=== PATIENT | female | born 1955 | race Asian ===

== ENCOUNTER 2016-10-05 08:45 | Day surgery (SDC) | payer MEDICAID ==
[~2016-10-05] VITALS: Ht 152.4 cm; Wt 64.1 kg
[~2016-10-05 08:45] MED LIST: ASPI-556 PO; ATEN25 PO; BENZ1TAB10 PO; FentaNYL CITRATE-PF 100 MCG/2 ML VIAL IVP ONE; INSLAN SQ; METF500T4 PO; MIDAZOLAM HCL 2 MG/2 ML VIAL IVP ONE; PROP10 PO; QUET100T PO; RISP3 PO; SIMV-259 PO
[2016-10-05] MEDS ORDERED: RINGERS SOLUTION,LACTATED 500 ML IV ONE ×2 (08:52→09:00)
[2016-10-05] MEDS ORDERED: TETRACAINE HCL 0.5% 2 ML OPHTHALMIC SOLUTION ONE (08:53)
[2016-10-05] MEDS ORDERED: CYCLOPENTOLATE HCL 2% 2 ML OPHTHALMIC SOLUTION ONE (08:53)
[2016-10-05] MEDS ORDERED: DICLOFENAC SODIUM 0.1% 2.5 ML OPHTHALMIC SOLUTION ONE (08:53)
[2016-10-05] MEDS ORDERED: PHENYLEPHRINE HCL 2.5% 2 ML OPHTHALMIC SOLUTION ONE (08:53)
[2016-10-05] MEDS ORDERED: GATIFLOXACIN 0.5% 2.5 ML OPHTHALMIC SOLUTION ONE (08:53)
[2016-10-05] MEDS ORDERED: TETRACAINE HCL 0.5% 2 ML OPHTHALMIC SOLUTION OS ONE ×2 (09:00→18:08)
[2016-10-05 09:32] LABS: GLUCOSE COMMENT 1 Doctor Notified; GLUCOSE,POINT OF CARE 300 MG/DL (70-110)
[2016-10-05] MEDS: PHENYLEPHRINE HCL 2.5% 2 ML OPHTHALMIC SOLUTION OS SCH ×3 (09:32→09:43)
[2016-10-05] MEDS: CYCLOPENTOLATE HCL 2% 2 ML OPHTHALMIC SOLUTION OS SCH ×3 (09:32→09:43)
[2016-10-05] MEDS: DICLOFENAC SODIUM 0.1% 2.5 ML OPHTHALMIC SOLUTION OS SCH ×3 (09:33→09:53)
[2016-10-05] MEDS: GATIFLOXACIN 0.5% 2.5 ML OPHTHALMIC SOLUTION OS SCH ×3 (09:35→09:53)
[2016-10-05] MEDS ORDERED: INSULIN ASPART 100 UNITS/ML ONE (09:43)
[2016-10-05] MEDS ORDERED: INSULIN ASPART 100 UNITS/ML IVP ONE (09:45)
[2016-10-05] MEDS ORDERED: ACETAMINOPHEN 325 MG TABLET PO PRN (10:00)
[2016-10-05] MEDS ORDERED: AcetaZOLAMIDE 250 MG TABLET PO ONE (10:00)
[2016-10-05 10:27] LABS: GLUCOSE COMMENT 1 Doctor Notified; GLUCOSE,POINT OF CARE 217 MG/DL (70-110)
[2016-10-05] MEDS ORDERED: AcetaZOLAMIDE 250 MG TABLET ONE (11:39)
[2016-10-05] MEDS ORDERED: BRIMONIDINE TARTRATE 0.15% 5 ML OPHTHALMIC SOLUTION OS ONE (18:08)
[2016-10-05] MEDS ORDERED: POVIDONE-IODINE 10% 15 ML SOLUTION UD TP ONE (18:08)
[2016-10-05] MEDS ORDERED: MOXIFLOXACIN HCL 0.5% 3 ML OPHTHALMIC SOLUTION OS ONE (18:08)
[2016-10-05] MEDS ORDERED: TETRACAINE HCL VISCOUS 0.5% 0.6 ML OPHTHALMIC SOLUTION OS ONE (18:08)
[2016-10-05] MEDS ORDERED: HYALURONATE SODIUM 12 MG/ML 0.8 ML SYRINGE IO ONE (18:08)
[2016-10-05] MEDS ORDERED: EPINEPHrine 1:1,000 [1 MG/ML] AMP IM ONE (18:08)
[2016-10-05] MEDS ORDERED: LIDOCAINE HCL/PF 1% 2 ML VIAL IM ONE (18:08)
[2016-10-05] MEDS ORDERED: HYALURONATE SOD/CHONDROITIN SOD 0.5 ML VIAL IO ONE (18:08)
== END 2016-10-05 12:15 | disposition home or self-care (01) ==
LOC: SURGERY 08:45
PROVIDERS: ATTEND Ophthalmology
DX: E11.36 Type 2 diabetes mellitus with diabetic cataract (principal); E11.39 Type 2 diabetes mellitus with other diabetic ophthalmic complication; H21.502 Unspecified adhesions of iris, left eye; F32.9 Major depressive disorder, single episode, unspecified; Z79.4 Long term (current) use of insulin
CPT/HCPCS: 66982; 66999; 82962; 93005; C1780; J0171; J1815; J2250; J3010; J3490 ×2; J7120

== ENCOUNTER 2017-03-11 15:11 | Inpatient (IN) | payer MEDICAID ==
[~2017-03-11] VITALS: Ht 154.9 cm; Wt 57.9 kg
[~2017-03-11 15:11] MED LIST changes: -ATEN25 PO; +ATEN25TA PO; -FentaNYL CITRATE-PF 100 MCG/2 ML VIAL IVP ONE; -MIDAZOLAM HCL 2 MG/2 ML VIAL IVP ONE; -PROP10 PO; +PROP10TA73 PO
[2017-03-11 15:42] LABS: GLUCOSE,POINT OF CARE 387 MG/DL (70-110)
[2017-03-11 16:31] LABS: BASOPHILS % (AUTO) 0.3 % (0.0-2.0); EOSINOPHILS % (AUTO) 1.3 % (1.0-6.0); HEMATOCRIT 38.1 % (36-46); HEMOGLOBIN 13.3 g/dL (12.0-16.0); LYMPHOCYTES # (AUTO) 1.2 K/uL (1.0-4.8); LYMPHOCYTES % (AUTO) 21.3 % (22.0-44.0); MEAN CORPUSCULAR HEMOGLOBIN 32.2 pg (26.0-34.0); MEAN CORPUSCULAR HGB CONC 34.8 G/dL (31.0-37.0); MEAN CORPUSCULAR VOLUME 92 fL (80-100); MONOCYTES # (AUTO) 0.4 K/uL (0.1-1.0); NEUTROPHILS % (AUTO) 70.1 % (40.0-70.0); PLATELET COUNT (AUTO) 306 K/uL (150-450); RED BLOOD CELL COUNT(AUTO) 4.12 MIL/uL (4.00-5.20); RED CELL DISTRIBUTION WIDTH 12.5 % (11.5-14.5); WHITE BLOOD COUNT (AUTO) 5.7 K/uL (4.5-11.0)
[2017-03-11 16:37] LABS: ANION GAP 15 mmol/L (8-16); CALCIUM, TOTAL 9.4 mg/dL (8.8-10.5); CARBON DIOXIDE 21 mmol/L (22-29); CHLORIDE 99 mmol/L (98-107); CREATININE 0.99 mg/dL (0.60-1.30); GLOMERULAR FILTR. RATE CALC 57 mL/min (>60); POTASSIUM 3.9 mmol/L (3.5-5.1); SODIUM SERUM 135 mmol/L (136-145); UREA NITROGEN, BLOOD 26 mg/dL (7-18)
[2017-03-11 16:44] LABS: ALANINE AMINOTRANSFERASE 24 U/L (12-78); ALBUMIN 3.7 g/dL (3.4-5.0); ASPARTATE AMINOTRANSFERASE 17 U/L (15-37); BILIRUBIN,TOTAL 0.4 mg/dL (0.1-1.0); TOTAL PROTEIN, SERUM 7.5 g/dL (6.4-8.2)
[2017-03-11] MEDS ORDERED: LORazepam 2 MG/ML VIAL IM ONE (19:45)
[2017-03-11] MEDS ORDERED: DiphenhydrAMINE HCL 50 MG/ML VIAL IM ONE (19:45)
[2017-03-11] MEDS ORDERED: HALOPERIDOL LACTATE 5 MG/ML VIAL IM ONE (19:45)
[2017-03-11] MEDS ORDERED: ZOLPIDEM TARTRATE 10 MG TABLET PO PRN (20:15)
[2017-03-11] MEDS ORDERED: HALOPERIDOL 5 MG TABLET PO PRN (20:15)
[2017-03-11 21:06] VITALS: BP 129/61
[2017-03-11] MEDS: BENZTROPINE MESYLATE 1 MG TABLET PO SCH (21:15)
[2017-03-11] MEDS: QUEtiapine FUMARATE 100 MG TABLET PO SCH (21:15)
[2017-03-12 00:56] VITALS: BP 119/64
[2017-03-12] MEDS ORDERED: PNEUMOCOCCAL VACCINE POLYVALENT 0.5 ML VIAL [PPSV23] IM ONE (03:45)
[2017-03-12 06:03] LABS: GLUCOSE COMMENT 1 Repeated; GLUCOSE,POINT OF CARE 490 MG/DL (70-110)
[2017-03-12] MEDS ORDERED: INSULIN ASPART 100 UNITS/ML SQ ONE (07:15)
[2017-03-12] MEDS ORDERED: GLUCAGON,HUMAN RECOMBINANT 1 MG VIAL IM PRN (07:15)
[2017-03-12] MEDS: QUEtiapine FUMARATE 100 MG TABLET PO SCH ×3 (09:08→17:10)
[2017-03-12] MEDS: BENZTROPINE MESYLATE 1 MG TABLET PO SCH ×2 (09:08→17:10)
[2017-03-12 09:12] LABS: GLUCOSE COMMENT 1 Received Meds; GLUCOSE,POINT OF CARE 240 MG/DL (70-110)
[2017-03-12] MEDS: INSULIN DETEMIR 100 UNITS/ML SQ SCH ×2 (09:12→17:00)
[2017-03-12] MEDS ORDERED: IBUPROFEN 400 MG TABLET PO PRN (16:00)
[2017-03-12] MEDS ORDERED: ACETAMINOPHEN 325 MG TABLET PO PRN (16:00)
[2017-03-12 16:45] VITALS: BP 104/72
[2017-03-12 16:52] LABS: GLUCOSE,POINT OF CARE 336 MG/DL (70-110)
[2017-03-12] MEDS ORDERED: MetFORMIN HCL 500 MG TABLET PO SCH (17:00)
[2017-03-12 21:47] LABS: GLUCOSE,POINT OF CARE 313 MG/DL (70-110)
[2017-03-13] MEDS: MetFORMIN HCL 500 MG TABLET PO SCH ×2 (06:04→20:37)
[2017-03-13] MEDS ORDERED: MetFORMIN HCL 500 MG TABLET PO SCH (07:00)
[2017-03-13] MEDS: QUEtiapine FUMARATE 100 MG TABLET PO SCH ×3 (09:38→16:44)
[2017-03-13] MEDS: BENZTROPINE MESYLATE 1 MG TABLET PO SCH ×2 (09:39→16:45)
[2017-03-13] MEDS: SIMVASTATIN 10 MG TABLET PO SCH (09:39)
[2017-03-13] MEDS: ASPIRIN 81 MG EC TABLET PO SCH (09:39)
[2017-03-13 09:45] VITALS: BP 103/60
[2017-03-13] MEDS: INSULIN DETEMIR 100 UNITS/ML SQ SCH ×2 (09:51→16:46)
[2017-03-13 10:12] LABS: GLUCOSE,POINT OF CARE 369 MG/DL (70-110)
[2017-03-13] MEDS: INSULIN ASPART 100 UNITS/ML SQ PRN (11:13)
[2017-03-13 11:16] LABS: GLUCOSE,POINT OF CARE 359 MG/DL (70-110)
[2017-03-13] MEDS: ATENOLOL 25 MG TABLET PO SCH (12:12)
[2017-03-13 16:12] VITALS: BP 113/67
[2017-03-13 17:02] LABS: GLUCOSE,POINT OF CARE 104 MG/DL (70-110)
[2017-03-13 20:57] LABS: GLUCOSE COMMENT 1 Received Meds; GLUCOSE,POINT OF CARE 247 MG/DL (70-110)
[2017-03-14] MEDS: MetFORMIN HCL 500 MG TABLET PO SCH ×2 (06:56→20:30)
[2017-03-14] MEDS: ASPIRIN 81 MG EC TABLET PO SCH (09:09)
[2017-03-14] MEDS: QUEtiapine FUMARATE 100 MG TABLET PO SCH ×3 (09:09→17:00)
[2017-03-14] MEDS: ATENOLOL 25 MG TABLET PO SCH (09:09)
[2017-03-14] MEDS: SIMVASTATIN 10 MG TABLET PO SCH (09:09)
[2017-03-14] MEDS: RisperiDONE MICROSPHERES 50 MG/2 ML SYRINGE IM SCH (09:15)
[2017-03-14 09:33] LABS: GLUCOSE,POINT OF CARE 284 MG/DL (70-110)
[2017-03-14] MEDS: INSULIN DETEMIR 100 UNITS/ML SQ SCH ×2 (10:07→17:00)
[2017-03-14 16:16] VITALS: BP 109/68
[2017-03-14 17:01] LABS: GLUCOSE,POINT OF CARE 303 MG/DL (70-110)
[2017-03-15 04:36] VITALS: BP 148/86
[2017-03-15 06:27] LABS: GLUCOSE,POINT OF CARE 317 MG/DL (70-110)
[2017-03-15] MEDS: MetFORMIN HCL 500 MG TABLET PO SCH ×2 (06:56→20:40)
[2017-03-15] MEDS: INSULIN ASPART 100 UNITS/ML SQ PRN ×2 (06:58→11:14)
[2017-03-15] MEDS: ASPIRIN 81 MG EC TABLET PO SCH (09:14)
[2017-03-15] MEDS: ATENOLOL 25 MG TABLET PO SCH (09:14)
[2017-03-15] MEDS: SIMVASTATIN 10 MG TABLET PO SCH (09:14)
[2017-03-15] MEDS: QUEtiapine FUMARATE 100 MG TABLET PO SCH ×3 (09:14→16:56)
[2017-03-15] MEDS: INSULIN DETEMIR 100 UNITS/ML SQ SCH ×2 (09:29→16:56)
[2017-03-15 15:36] LABS: GLUCOSE,POINT OF CARE 240 MG/DL (70-110)
[2017-03-15 17:00] VITALS: BP 120/81
[2017-03-16 06:35] VITALS: BP 110/63
[2017-03-16 06:37] LABS: GLUCOSE,POINT OF CARE 252 MG/DL (70-110)
[2017-03-16] MEDS: MetFORMIN HCL 500 MG TABLET PO SCH ×2 (06:50→20:26)
[2017-03-16 08:46] LABS: HEMOGLOBIN A1C 10.1 % (4.5-6.2)
[2017-03-16 09:02] LABS: CHOL/HDL RATIO 4.3 (3.9-5.7)
[2017-03-16] MEDS: ATENOLOL 25 MG TABLET PO SCH (09:35)
[2017-03-16] MEDS: QUEtiapine FUMARATE 100 MG TABLET PO SCH ×3 (09:35→16:56)
[2017-03-16] MEDS: ASPIRIN 81 MG EC TABLET PO SCH (09:35)
[2017-03-16] MEDS: SIMVASTATIN 10 MG TABLET PO SCH (09:36)
[2017-03-16] MEDS: INSULIN DETEMIR 100 UNITS/ML SQ SCH ×2 (09:59→17:00)
[2017-03-16 10:03] LABS: GLUCOSE,POINT OF CARE 307 MG/DL (70-110)
[2017-03-16 16:27] VITALS: BP 107/65
[2017-03-17 06:23] LABS: GLUCOSE,POINT OF CARE 278 MG/DL (70-110)
[2017-03-17] MEDS: MetFORMIN HCL 500 MG TABLET PO SCH ×2 (06:50→20:36)
[2017-03-17 08:25] VITALS: BP 124/75
[2017-03-17] MEDS: LORazepam 2 MG TABLET PO PRN (08:47)
[2017-03-17] MEDS: ASPIRIN 81 MG EC TABLET PO SCH (08:48)
[2017-03-17] MEDS: SIMVASTATIN 10 MG TABLET PO SCH (08:48)
[2017-03-17] MEDS: ATENOLOL 25 MG TABLET PO SCH (08:48)
[2017-03-17] MEDS: QUEtiapine FUMARATE 100 MG TABLET PO SCH ×3 (08:48→16:45)
[2017-03-17] MEDS: INSULIN DETEMIR 100 UNITS/ML SQ SCH ×2 (08:58→17:17)
[2017-03-17 09:08] LABS: GLUCOSE,POINT OF CARE 366 MG/DL (70-110)
[2017-03-17] MEDS: INSULIN ASPART 100 UNITS/ML SQ PRN ×3 (11:26→20:52)
[2017-03-17 11:32] LABS: GLUCOSE,POINT OF CARE 308 MG/DL (70-110)
[2017-03-17 16:25] VITALS: BP 117/79
[2017-03-17 16:57] LABS: GLUCOSE,POINT OF CARE 122 MG/DL (70-110)
[2017-03-17 21:22] LABS: GLUCOSE,POINT OF CARE 208 MG/DL (70-110)
[2017-03-18] MEDS: MetFORMIN HCL 500 MG TABLET PO SCH ×2 (06:35→20:25)
[2017-03-18] MEDS: ASPIRIN 81 MG EC TABLET PO SCH (09:00)
[2017-03-18] MEDS: SIMVASTATIN 10 MG TABLET PO SCH (09:00)
[2017-03-18] MEDS: QUEtiapine FUMARATE 100 MG TABLET PO SCH ×3 (09:00→17:33)
[2017-03-18] MEDS: INSULIN DETEMIR 100 UNITS/ML SQ SCH ×2 (09:00→17:00)
[2017-03-18] MEDS: ATENOLOL 25 MG TABLET PO SCH (09:00)
[2017-03-18 11:48] LABS: GLUCOSE,POINT OF CARE 209 MG/DL (70-110)
[2017-03-18 16:30] VITALS: BP 123/73
[2017-03-19] MEDS: MetFORMIN HCL 500 MG TABLET PO SCH ×2 (07:17→20:28)
[2017-03-19] MEDS: ASPIRIN 81 MG EC TABLET PO SCH (08:58)
[2017-03-19] MEDS: ATENOLOL 25 MG TABLET PO SCH (08:58)
[2017-03-19] MEDS: SIMVASTATIN 10 MG TABLET PO SCH (08:59)
[2017-03-19] MEDS: QUEtiapine FUMARATE 100 MG TABLET PO SCH ×4 (09:01→16:44)
[2017-03-19 09:08] VITALS: BP 107/71
[2017-03-19] MEDS: INSULIN DETEMIR 100 UNITS/ML SQ SCH ×2 (09:19→16:51)
[2017-03-19 10:35] LABS: GLUCOSE COMMENT 1 Received Meds; GLUCOSE,POINT OF CARE 354 MG/DL (70-110)
[2017-03-19 16:38] VITALS: BP 133/89
[2017-03-19] MEDS: LORazepam 2 MG TABLET PO PRN ×2 (16:44→20:29)
[2017-03-19 16:47] LABS: GLUCOSE COMMENT 1 Received Meds; GLUCOSE,POINT OF CARE 305 MG/DL (70-110)
[2017-03-19] MEDS: INSULIN ASPART 100 UNITS/ML SQ PRN (16:51)
[2017-03-19] MEDS ORDERED: RISPC50 IM (21:18)
[2017-03-20 05:03] LABS: GLUCOSE COMMENT 1 Received Meds; GLUCOSE,POINT OF CARE 129 MG/DL (70-110)
[2017-03-20 06:04] VITALS: BP 133/81
[2017-03-20] MEDS: MetFORMIN HCL 500 MG TABLET PO SCH ×2 (07:21→20:42)
[2017-03-20] MEDS: ATENOLOL 25 MG TABLET PO SCH (09:22)
[2017-03-20] MEDS: QUEtiapine FUMARATE 100 MG TABLET PO SCH ×3 (09:22→16:24)
[2017-03-20] MEDS: ASPIRIN 81 MG EC TABLET PO SCH (09:22)
[2017-03-20] MEDS: SIMVASTATIN 10 MG TABLET PO SCH (09:23)
[2017-03-20] MEDS: INSULIN DETEMIR 100 UNITS/ML SQ SCH ×2 (09:27→16:36)
[2017-03-20 09:48] VITALS: BP 130/79
[2017-03-20] MEDS: INSULIN ASPART 100 UNITS/ML SQ PRN (11:39)
[2017-03-20 16:29] VITALS: BP 122/65
[2017-03-21 05:42] LABS: GLUCOSE COMMENT 1 Received Meds; GLUCOSE,POINT OF CARE 236 MG/DL (70-110)
[2017-03-21 05:42] LABS: GLUCOSE,POINT OF CARE 193 MG/DL (70-110)
[2017-03-21 05:42] LABS: GLUCOSE,POINT OF CARE 177 MG/DL (70-110)
[2017-03-21 05:42] LABS: GLUCOSE,POINT OF CARE 225 MG/DL (70-110)
[2017-03-21] MEDS: MetFORMIN HCL 500 MG TABLET PO SCH ×2 (06:16→21:00)
[2017-03-21] MEDS: QUEtiapine FUMARATE 100 MG TABLET PO SCH ×3 (08:58→16:33)
[2017-03-21] MEDS: SIMVASTATIN 10 MG TABLET PO SCH (08:58)
[2017-03-21] MEDS: ASPIRIN 81 MG EC TABLET PO SCH (08:58)
[2017-03-21] MEDS: ATENOLOL 25 MG TABLET PO SCH (08:58)
[2017-03-21] MEDS: LORazepam 2 MG TABLET PO PRN (10:06)
[2017-03-21 10:52] LABS: GLUCOSE,POINT OF CARE 299 MG/DL (70-110)
[2017-03-21] MEDS: INSULIN DETEMIR 100 UNITS/ML SQ SCH ×2 (11:44→16:50)
[2017-03-21] MEDS: INSULIN ASPART 100 UNITS/ML SQ PRN ×3 (11:45→20:27)
[2017-03-21 16:39] VITALS: BP 104/71
[2017-03-21 17:02] LABS: GLUCOSE,POINT OF CARE 269 MG/DL (70-110)
[2017-03-21 20:57] LABS: GLUCOSE,POINT OF CARE 139 MG/DL (70-110)
[2017-03-22 04:26] VITALS: BP 124/78
[2017-03-22] MEDS: MetFORMIN HCL 500 MG TABLET PO SCH ×2 (07:13→21:00)
[2017-03-22 07:22] LABS: GLUCOSE,POINT OF CARE 305 MG/DL (70-110)
[2017-03-22 08:29] VITALS: BP 132/78
[2017-03-22] MEDS: ATENOLOL 25 MG TABLET PO SCH ×2 (08:38→09:00)
[2017-03-22] MEDS: SIMVASTATIN 10 MG TABLET PO SCH ×2 (08:38→09:00)
[2017-03-22] MEDS: QUEtiapine FUMARATE 100 MG TABLET PO SCH ×5 (08:38→16:59)
[2017-03-22] MEDS: ASPIRIN 81 MG EC TABLET PO SCH ×2 (08:38→09:00)
[2017-03-22] MEDS: INSULIN DETEMIR 100 UNITS/ML SQ SCH ×2 (08:48→17:31)
[2017-03-22] MEDS: INSULIN ASPART 100 UNITS/ML SQ PRN ×2 (11:55→17:30)
[2017-03-22 12:22] LABS: GLUCOSE COMMENT 1 Received Meds; GLUCOSE,POINT OF CARE 232 MG/DL (70-110)
[2017-03-22 16:37] LABS: GLUCOSE,POINT OF CARE 155 MG/DL (70-110)
[2017-03-22 16:47] VITALS: BP 134/83
[2017-03-22 21:36] LABS: GLUCOSE,POINT OF CARE 138 MG/DL (70-110)
[2017-03-23 06:52] LABS: GLUCOSE,POINT OF CARE 214 MG/DL (70-110)
[2017-03-23] MEDS: INSULIN ASPART 100 UNITS/ML SQ PRN ×2 (06:55→17:14)
[2017-03-23] MEDS: MetFORMIN HCL 500 MG TABLET PO SCH ×2 (07:04→20:57)
[2017-03-23 08:39] VITALS: BP 108/69
[2017-03-23] MEDS: QUEtiapine FUMARATE 100 MG TABLET PO SCH ×3 (09:00→16:47)
[2017-03-23] MEDS: SIMVASTATIN 10 MG TABLET PO SCH (09:00)
[2017-03-23] MEDS: INSULIN DETEMIR 100 UNITS/ML SQ SCH ×2 (09:00→17:11)
[2017-03-23] MEDS: ATENOLOL 25 MG TABLET PO SCH (09:00)
[2017-03-23 09:52] LABS: GLUCOSE,POINT OF CARE 186 MG/DL (70-110)
[2017-03-23] MEDS: ASPIRIN 81 MG EC TABLET PO SCH (10:16)
[2017-03-23 16:44] VITALS: BP 133/67
[2017-03-23 21:42] LABS: GLUCOSE,POINT OF CARE 318 MG/DL (70-110)
[2017-03-23 21:42] LABS: GLUCOSE COMMENT 1 Received Meds; GLUCOSE,POINT OF CARE 188 MG/DL (70-110)
[2017-03-24 06:08] LABS: GLUCOSE,POINT OF CARE 286 MG/DL (70-110)
[2017-03-24 06:15] VITALS: BP 140/69
[2017-03-24] MEDS: MetFORMIN HCL 500 MG TABLET PO SCH ×2 (06:43→20:28)
[2017-03-24] MEDS: INSULIN ASPART 100 UNITS/ML SQ PRN ×3 (06:56→17:30)
[2017-03-24 07:35] VITALS: BP 124/83
[2017-03-24] MEDS: LORazepam 2 MG TABLET PO PRN (07:49)
[2017-03-24 08:52] VITALS: BP 124/83
[2017-03-24] MEDS ORDERED: RisperiDONE MICROSPHERES 50 MG/2 ML SYRINGE IM SCH (09:00)
[2017-03-24] MEDS: SIMVASTATIN 10 MG TABLET PO SCH (09:00)
[2017-03-24] MEDS: ATENOLOL 25 MG TABLET PO SCH (09:13)
[2017-03-24] MEDS: ASPIRIN 81 MG EC TABLET PO SCH (09:13)
[2017-03-24] MEDS: INSULIN DETEMIR 100 UNITS/ML SQ SCH ×2 (09:18→16:43)
[2017-03-24 11:02] LABS: GLUCOSE COMMENT 1 Received Meds; GLUCOSE,POINT OF CARE 252 MG/DL (70-110)
[2017-03-24] MEDS: QUEtiapine FUMARATE 100 MG TABLET PO SCH ×2 (12:38→16:43)
[2017-03-24 16:38] VITALS: BP 112/70
[2017-03-25 06:02] VITALS: BP 121/76
[2017-03-25] MEDS: INSULIN ASPART 100 UNITS/ML SQ PRN ×2 (06:59→16:52)
[2017-03-25] MEDS: MetFORMIN HCL 500 MG TABLET PO SCH ×2 (07:00→21:00)
[2017-03-25 08:20] VITALS: BP 159/84
[2017-03-25] MEDS: ATENOLOL 25 MG TABLET PO SCH (09:00)
[2017-03-25] MEDS: SIMVASTATIN 10 MG TABLET PO SCH (09:00)
[2017-03-25] MEDS: ASPIRIN 81 MG EC TABLET PO SCH (09:00)
[2017-03-25] MEDS: INSULIN DETEMIR 100 UNITS/ML SQ SCH ×2 (10:13→16:52)
[2017-03-25 10:19] LABS: GLUCOSE,POINT OF CARE 299 MG/DL (70-110)
[2017-03-25 10:19] LABS: GLUCOSE,POINT OF CARE 162 MG/DL (70-110)
[2017-03-25 10:19] LABS: GLUCOSE,POINT OF CARE 285 MG/DL (70-110)
[2017-03-25] MEDS: QUEtiapine FUMARATE 100 MG TABLET PO SCH ×2 (12:27→16:46)
[2017-03-25] MEDS: LORazepam 2 MG TABLET PO PRN (12:27)
[2017-03-25 17:02] LABS: GLUCOSE,POINT OF CARE 214 MG/DL (70-110)
[2017-03-25 22:51] VITALS: BP 106/67
[2017-03-26 06:37] LABS: GLUCOSE,POINT OF CARE 246 MG/DL (70-110)
[2017-03-26] MEDS: INSULIN ASPART 100 UNITS/ML SQ PRN ×4 (06:40→21:38)
[2017-03-26] MEDS: MetFORMIN HCL 500 MG TABLET PO SCH ×2 (06:44→21:00)
[2017-03-26 08:26] VITALS: BP 123/82
[2017-03-26] MEDS: ASPIRIN 81 MG EC TABLET PO SCH (09:00)
[2017-03-26] MEDS: SIMVASTATIN 10 MG TABLET PO SCH (09:00)
[2017-03-26] MEDS: ATENOLOL 25 MG TABLET PO SCH (09:00)
[2017-03-26] MEDS: INSULIN DETEMIR 100 UNITS/ML SQ SCH ×2 (09:43→17:21)
[2017-03-26 11:57] LABS: GLUCOSE,POINT OF CARE 206 MG/DL (70-110)
[2017-03-26] MEDS: QUEtiapine FUMARATE 100 MG TABLET PO SCH ×2 (12:13→16:27)
[2017-03-26 16:20] VITALS: BP 122/88
[2017-03-26 16:38] LABS: GLUCOSE,POINT OF CARE 248 MG/DL (70-110)
[2017-03-26 21:27] LABS: GLUCOSE,POINT OF CARE 129 MG/DL (70-110)
[2017-03-27] MEDS: LORazepam 2 MG TABLET PO PRN (01:00)
[2017-03-27] MEDS: MetFORMIN HCL 500 MG TABLET PO SCH ×2 (05:56→20:54)
[2017-03-27 06:38] LABS: GLUCOSE,POINT OF CARE 227 MG/DL (70-110)
[2017-03-27] MEDS: INSULIN ASPART 100 UNITS/ML SQ PRN ×3 (07:03→17:24)
[2017-03-27] MEDS: INSULIN DETEMIR 100 UNITS/ML SQ SCH ×2 (08:35→17:24)
[2017-03-27] MEDS: SIMVASTATIN 10 MG TABLET PO SCH ×3 (08:36→09:00)
[2017-03-27] MEDS: ASPIRIN 81 MG EC TABLET PO SCH ×3 (08:37→09:00)
[2017-03-27] MEDS: ATENOLOL 25 MG TABLET PO SCH ×3 (08:38→09:00)
[2017-03-27 08:41] VITALS: BP 98/77
[2017-03-27] MEDS: QUEtiapine FUMARATE 100 MG TABLET PO SCH ×2 (12:50→17:08)
[2017-03-27 16:30] VITALS: BP 128/83
[2017-03-27 16:53] LABS: GLUCOSE,POINT OF CARE 246 MG/DL (70-110)
[2017-03-27 16:53] LABS: GLUCOSE,POINT OF CARE 228 MG/DL (70-110)
[2017-03-28] MEDS: MetFORMIN HCL 500 MG TABLET PO SCH (06:40)
[2017-03-28] MEDS: INSULIN DETEMIR 100 UNITS/ML SQ SCH (07:42)
[2017-03-28] MEDS ORDERED: METF500T4 PO ×4 (08:14→08:22)
[2017-03-28] MEDS ORDERED: INSLAN SQ (08:16)
[2017-03-28 08:23] VITALS: BP 127/67
[2017-03-28] MEDS ORDERED: QUET100T PO ×2 (08:27)
[2017-03-28] MEDS: RisperiDONE MICROSPHERES 50 MG/2 ML SYRINGE IM SCH ×2 (09:00→11:49)
[2017-03-28] MEDS: ASPIRIN 81 MG EC TABLET PO SCH (09:00)
[2017-03-28] MEDS: ATENOLOL 25 MG TABLET PO SCH (09:00)
[2017-03-28] MEDS: SIMVASTATIN 10 MG TABLET PO SCH (09:00)
[2017-03-28 09:47] LABS: GLUCOSE,POINT OF CARE 217 MG/DL (70-110)
[2017-03-28] MEDS: QUEtiapine FUMARATE 100 MG TABLET PO SCH (12:50)
== END 2017-03-28 16:00 | disposition home or self-care (01) | DRG 750 ==
LOC: EMS 15:14 → B2S 21:00
PROVIDERS: ADMIT Psychiatry & Neurology Psychiatry; ATTEND Psychiatry & Neurology Psychiatry
DX: F20.0 Paranoid schizophrenia (principal); E11.9 Type 2 diabetes mellitus without complications; I10 Essential (primary) hypertension; E78.5 Hyperlipidemia, unspecified; F94.0 Selective mutism; K59.00 Constipation, unspecified; Z91.14 Patient's other noncompliance with medication regimen; F32.9 Major depressive disorder, single episode, unspecified; Z28.21 Immunization not carried out because of patient refusal
CPT/HCPCS: 82962; 83036; 90471; 96372; 99285; G0480; J1200; J1630; J1815; J2060; J2794

== ENCOUNTER 2017-03-28 17:57 | Emergency (ER) | payer MEDICAID ==
[~2017-03-28] VITALS: Ht 157.5 cm; Wt 57.2 kg
[~2017-03-28 17:57] MED LIST changes: -RISP3 PO; +RISPC50 IM
[2017-03-28 18:13] LABS: GLUCOSE,POINT OF CARE 318 MG/DL (70-110)
[2017-03-28] MEDS ORDERED: HydrOXYzine PAMOATE 50 MG CAPSULE PO ONE (18:30)
[2017-03-28 18:51] LABS: ANION GAP 12 mmol/L (8-16); CALCIUM, TOTAL 9.4 mg/dL (8.8-10.5); CARBON DIOXIDE 24 mmol/L (22-29); CHLORIDE 102 mmol/L (98-107); CREATININE 0.75 mg/dL (0.60-1.30); GLOMERULAR FILTR. RATE CALC > 60 mL/min (>60); POTASSIUM 3.7 mmol/L (3.5-5.1); SODIUM SERUM 138 mmol/L (136-145); UREA NITROGEN, BLOOD 7 mg/dL (7-18)
[2017-03-28 18:57] LABS: ALANINE AMINOTRANSFERASE 48 U/L (12-78); ALBUMIN 3.9 g/dL (3.4-5.0); ASPARTATE AMINOTRANSFERASE 29 U/L (15-37); BILIRUBIN,TOTAL 0.6 mg/dL (0.1-1.0); TOTAL PROTEIN, SERUM 7.3 g/dL (6.4-8.2)
[2017-03-28 19:01] LABS: BASOPHILS % (AUTO) 0.5 % (0.0-2.0); EOSINOPHILS % (AUTO) 1.1 % (1.0-6.0); HEMATOCRIT 40.3 % (36-46); HEMOGLOBIN 13.7 g/dL (12.0-16.0); LYMPHOCYTES # (AUTO) 1.3 K/uL (1.0-4.8); LYMPHOCYTES % (AUTO) 21.8 % (22.0-44.0); MEAN CORPUSCULAR HEMOGLOBIN 31.7 pg (26.0-34.0); MEAN CORPUSCULAR HGB CONC 33.9 G/dL (31.0-37.0); MEAN CORPUSCULAR VOLUME 93 fL (80-100); MONOCYTES # (AUTO) 0.5 K/uL (0.1-1.0); MONOCYTES % (AUTO) 7.4 % (2.0-9.0); NEUTROPHILS # (AUTO) 4.3 K/uL (1.8-7.7); NEUTROPHILS % (AUTO) 69.2 % (40.0-70.0); PLATELET COUNT (AUTO) 257 K/uL (150-450); RED BLOOD CELL COUNT(AUTO) 4.32 MIL/uL (4.00-5.20); RED CELL DISTRIBUTION WIDTH 13.4 % (11.5-14.5); WHITE BLOOD COUNT (AUTO) 6.2 K/uL (4.5-11.0)
[2017-03-28 19:22] LABS: APPEARANCE,URINE CLOUDY (CLEAR); GLUCOSE, URINE (UA) >=1000 mg/dL (NEGATIVE); KETONES,URINE TRACE mg/dL (NEGATIVE); LEUKOCYTE ESTERASE ,URINE LARGE (NEGATIVE); OCCULT BLOOD,URINE TRACE (NEGATIVE); PH,URINE 5.5 (5.0-8.0); PROTEIN,URINE NEGATIVE (NEGATIVE)
[2017-03-28 19:51] LABS: SQUAMOUS EPITHELIAL CELL,UR Few /LPF (None Seen); TRANSITIONAL EPI CELLS,URINE Few /LPF (None Seen)
[2017-03-28 19:53] LABS: RBC,URINE 0-2 /HPF (0-2); WBC,URINE 51-100 /HPF (0-5)
[2017-03-28] MEDS ORDERED: LORazepam 2 MG TABLET PO ONE (20:00)
[2017-03-28 20:28] VITALS: BP 129/82
== END 2017-03-28 20:41 | disposition home or self-care (01) ==
LOC: EMS 17:59
DX: F20.9 Schizophrenia, unspecified (principal); N39.0 Urinary tract infection, site not specified; F41.9 Anxiety disorder, unspecified; I11.9 Hypertensive heart disease without heart failure; F32.9 Major depressive disorder, single episode, unspecified; E78.00 Pure hypercholesterolemia, unspecified; E11.9 Type 2 diabetes mellitus without complications; Z79.4 Long term (current) use of insulin
CPT/HCPCS: 36415; 80053; 80307; 81001; 82962; 85025; 87077; 87086; 87186; 93005; 99285; G0480

== ENCOUNTER 2017-09-15 17:05 | Inpatient (IN) | payer MEDICAID ==
[~2017-09-15 17:05] MED LIST changes: -ATEN25TA PO; +INSU100V SQ; +LISI-660 PO; +METF10002 PO; -METF500T4 PO; -PROP10TA73 PO; -RISPC50 IM; -SIMV-259 PO
[2017-09-15 18:08] LABS: GLUCOMETER DEV NAME(LOC) BV3S 2; GLUCOSE,POINT OF CARE 269 MG/DL (70-110)
[2017-09-15] MEDS ORDERED: PNEUMOCOCCAL VACCINE POLYVALENT 0.5 ML VIAL [PPSV23] IM ONE (18:15)
[2017-09-15 18:30] VITALS: BP 152/70
[2017-09-15] MEDS: HALOPERIDOL 5 MG TABLET PO PRN (20:37)
[2017-09-15] MEDS: LORazepam 2 MG TABLET PO PRN (20:37)
[2017-09-15] MEDS ORDERED: INSULIN GLARGINE,HUM.REC.ANLOG 100 UNITS/ML SQ SCH (21:00)
[2017-09-16 01:36] VITALS: BP 108/71
[2017-09-16] MEDS: MetFORMIN HCL 500 MG TABLET PO SCH ×2 (06:37→16:24)
[2017-09-16 08:47] VITALS: BP 102/59
[2017-09-16] MEDS: BENZTROPINE MESYLATE 1 MG TABLET PO SCH ×2 (09:02→16:24)
[2017-09-16] MEDS: RisperiDONE 3 MG TABLET PO SCH ×2 (09:03→16:24)
[2017-09-16] MEDS: ASPIRIN 81 MG EC TABLET PO SCH (09:03)
[2017-09-16] MEDS: LISINOPRIL 5 MG TABLET PO SCH (09:03)
[2017-09-16 09:30] VITALS: BP 112/74
[2017-09-16] MEDS: LORazepam 2 MG TABLET PO PRN (09:36)
[2017-09-16] MEDS ORDERED: GLUCAGON,HUMAN RECOMBINANT 1 MG VIAL IM PRN (10:15)
[2017-09-16] MEDS ORDERED: INSULIN REGULAR, HUMAN 100 UNITS/ML SQ ONE (10:30)
[2017-09-16] MEDS ORDERED: INSULIN ASPART 100 UNITS/ML - NON-FORMULARY SQ ONE (10:45)
[2017-09-16] MEDS: INSULIN ASPART 100 UNITS/ML - NON-FORMULARY SQ PRN (11:51)
[2017-09-16 12:18] LABS: GLUCOMETER DEV NAME(LOC) BV3S 2; GLUCOSE,POINT OF CARE 335 MG/DL (70-110)
[2017-09-16 12:18] LABS: GLUCOMETER DEV NAME(LOC) BV3S 2; GLUCOSE,POINT OF CARE 421 MG/DL (70-110)
[2017-09-16] MEDS: INSULIN GLARGINE,HUM.REC.ANLOG 100 UNITS/ML SQ SCH (17:04)
[2017-09-16 17:31] VITALS: BP 101/66
[2017-09-16 17:58] LABS: GLUCOMETER DEV NAME(LOC) BV3S 2; GLUCOSE,POINT OF CARE 77 MG/DL (70-110)
[2017-09-16 17:58] LABS: GLUCOMETER DEV NAME(LOC) BV3S 2; GLUCOSE,POINT OF CARE 115 MG/DL (70-110)
[2017-09-16] MEDS ORDERED: IBUPROFEN 400 MG TABLET PO PRN (19:45)
[2017-09-16] MEDS ORDERED: ACETAMINOPHEN 325 MG TABLET PO PRN (19:45)
[2017-09-17 06:27] VITALS: BP 108/71
[2017-09-17] MEDS: MetFORMIN HCL 500 MG TABLET PO SCH ×2 (06:58→16:52)
[2017-09-17] MEDS: INSULIN ASPART 100 UNITS/ML - NON-FORMULARY SQ PRN ×3 (07:06→17:17)
[2017-09-17] MEDS: INSULIN GLARGINE,HUM.REC.ANLOG 100 UNITS/ML SQ SCH ×2 (07:07→17:16)
[2017-09-17 07:22] LABS: GLUCOMETER DEV NAME(LOC) BV3S 2; GLUCOSE,POINT OF CARE 275 MG/DL (70-110)
[2017-09-17] MEDS: BENZTROPINE MESYLATE 1 MG TABLET PO SCH ×2 (08:42→16:52)
[2017-09-17] MEDS: RisperiDONE 3 MG TABLET PO SCH ×2 (08:42→16:52)
[2017-09-17] MEDS: ASPIRIN 81 MG EC TABLET PO SCH (08:42)
[2017-09-17] MEDS: LISINOPRIL 5 MG TABLET PO SCH (08:42)
[2017-09-17 15:12] LABS: GLUCOMETER DEV NAME(LOC) BV3S 2; GLUCOSE,POINT OF CARE 235 MG/DL (70-110)
[2017-09-17 16:32] VITALS: BP 119/64
[2017-09-17 17:58] LABS: GLUCOMETER DEV NAME(LOC) BV3S 2; GLUCOSE,POINT OF CARE 206 MG/DL (70-110)
[2017-09-17 21:02] LABS: GLUCOMETER DEV NAME(LOC) BV3S 2; GLUCOSE,POINT OF CARE 116 MG/DL (70-110)
[2017-09-18 04:27] VITALS: BP 125/75
[2017-09-18] MEDS: MetFORMIN HCL 500 MG TABLET PO SCH ×2 (07:01→16:39)
[2017-09-18] MEDS: INSULIN GLARGINE,HUM.REC.ANLOG 100 UNITS/ML SQ SCH ×2 (07:06→17:16)
[2017-09-18] MEDS: INSULIN ASPART 100 UNITS/ML - NON-FORMULARY SQ PRN ×3 (07:06→17:17)
[2017-09-18 08:13] LABS: BASOPHILS % (AUTO) 0.7 % (0.0-2.0); EOSINOPHILS % (AUTO) 2.2 % (1.0-6.0); HEMATOCRIT 37.4 % (36-46); LYMPHOCYTES # (AUTO) 1.5 K/uL (1.0-4.8); LYMPHOCYTES % (AUTO) 27.3 % (22.0-44.0); MEAN CORPUSCULAR HEMOGLOBIN 31.8 pg (26.0-34.0); MEAN CORPUSCULAR HGB CONC 34.8 G/dL (31.0-37.0); MEAN CORPUSCULAR VOLUME 91 fL (80-100); MONOCYTES # (AUTO) 0.4 K/uL (0.1-1.0); MONOCYTES % (AUTO) 7.4 % (2.0-9.0); NEUTROPHILS # (AUTO) 3.5 K/uL (1.8-7.7); NEUTROPHILS % (AUTO) 62.4 % (40.0-70.0); PLATELET COUNT (AUTO) 269 K/uL (150-450)
[2017-09-18 08:24] VITALS: BP 113/65
[2017-09-18] MEDS: BENZTROPINE MESYLATE 1 MG TABLET PO SCH ×2 (08:33→16:38)
[2017-09-18] MEDS: ASPIRIN 81 MG EC TABLET PO SCH (08:34)
[2017-09-18] MEDS: RisperiDONE 3 MG TABLET PO SCH ×2 (08:34→16:39)
[2017-09-18] MEDS: LISINOPRIL 5 MG TABLET PO SCH (08:34)
[2017-09-18 08:36] LABS: ALANINE AMINOTRANSFERASE 26 U/L (12-78); ALBUMIN 3.3 g/dL (3.4-5.0); ALKALINE PHOSPHATASE 77 U/L (46-116); ANION GAP 11 mmol/L (8-16); ASPARTATE AMINOTRANSFERASE 14 U/L (15-37); BILIRUBIN,TOTAL 0.6 mg/dL (0.1-1.0); CARBON DIOXIDE 26 mmol/L (22-29); CHLORIDE 106 mmol/L (98-107); CHOL/HDL RATIO 4.5 (3.9-5.7); CHOLESTEROL 235 mg/dL (131-200); CREATININE 0.55 mg/dL (0.60-1.30); GLOMERULAR FILTR. RATE CALC > 60 mL/min (>60); GLUCOSE,RANDOM 130 mg/dL (70-110); HDL CHOLESTEROL 52 mg/dL (40-60); LDL CHOL (CALC.) 157 mg/dL (0-130); SODIUM SERUM 143 mmol/L (136-145); TOTAL PROTEIN, SERUM 6.1 g/dL (6.4-8.2); TRIGLYCERIDES 131 mg/dL (15-150); UREA NITROGEN, BLOOD 17 mg/dL (7-18)
[2017-09-18 08:52] LABS: HEMOGLOBIN A1C 10.4 % (4.5-6.2)
[2017-09-18 11:12] LABS: GLUCOMETER DEV NAME(LOC) BV3S 2; GLUCOSE,POINT OF CARE 130 MG/DL (70-110)
[2017-09-18 11:12] LABS: GLUCOMETER DEV NAME(LOC) BV3S 2; GLUCOSE,POINT OF CARE 188 MG/DL (70-110)
[2017-09-18 16:23] VITALS: BP 123/92
[2017-09-18 16:42] LABS: GLUCOMETER DEV NAME(LOC) BV3S 2; GLUCOSE,POINT OF CARE 163 MG/DL (70-110)
[2017-09-18 21:18] LABS: GLUCOMETER DEV NAME(LOC) BV3S 2; GLUCOSE,POINT OF CARE 94 MG/DL (70-110)
[2017-09-18] MEDS: ZOLPIDEM TARTRATE 10 MG TABLET PO PRN (21:49)
[2017-09-19 05:53] VITALS: BP 122/88
[2017-09-19 06:17] LABS: GLUCOMETER DEV NAME(LOC) BV3S 2; GLUCOSE,POINT OF CARE 89 MG/DL (70-110)
[2017-09-19] MEDS: MetFORMIN HCL 500 MG TABLET PO SCH ×2 (06:38→17:01)
[2017-09-19] MEDS: INSULIN GLARGINE,HUM.REC.ANLOG 100 UNITS/ML SQ SCH ×2 (06:53→17:46)
[2017-09-19 08:43] VITALS: BP 123/83
[2017-09-19] MEDS: BENZTROPINE MESYLATE 1 MG TABLET PO SCH ×2 (09:00→16:33)
[2017-09-19] MEDS: LISINOPRIL 5 MG TABLET PO SCH (09:00)
[2017-09-19] MEDS: RisperiDONE 3 MG TABLET PO SCH ×2 (09:00→16:33)
[2017-09-19] MEDS: ASPIRIN 81 MG EC TABLET PO SCH (09:00)
[2017-09-19 09:58] LABS: GLUCOMETER DEV NAME(LOC) BV3S 2; GLUCOSE,POINT OF CARE 139 MG/DL (70-110)
[2017-09-19] MEDS: LORazepam 2 MG TABLET PO PRN (16:33)
[2017-09-19] MEDS: HALOPERIDOL 5 MG TABLET PO PRN (17:15)
[2017-09-19 17:32] LABS: GLUCOMETER DEV NAME(LOC) BV3S 2; GLUCOSE,POINT OF CARE 192 MG/DL (70-110)
[2017-09-19] MEDS: INSULIN ASPART 100 UNITS/ML - NON-FORMULARY SQ PRN (17:46)
[2017-09-19 22:07] LABS: GLUCOMETER DEV NAME(LOC) BV3S 2; GLUCOSE,POINT OF CARE 74 MG/DL (70-110)
[2017-09-19] MEDS: ZOLPIDEM TARTRATE 10 MG TABLET PO PRN (22:17)
[2017-09-20 06:04] VITALS: BP 120/70
[2017-09-20] MEDS: LORazepam 2 MG TABLET PO PRN (06:45)
[2017-09-20] MEDS: MetFORMIN HCL 500 MG TABLET PO SCH ×2 (06:57→16:35)
[2017-09-20] MEDS: INSULIN GLARGINE,HUM.REC.ANLOG 100 UNITS/ML SQ SCH ×2 (07:10→17:26)
[2017-09-20 08:30] VITALS: BP 118/78
[2017-09-20] MEDS: LISINOPRIL 5 MG TABLET PO SCH (08:47)
[2017-09-20] MEDS: BENZTROPINE MESYLATE 1 MG TABLET PO SCH ×2 (08:47→16:34)
[2017-09-20] MEDS: ASPIRIN 81 MG EC TABLET PO SCH (08:47)
[2017-09-20] MEDS: RisperiDONE 3 MG TABLET PO SCH ×2 (08:47→16:34)
[2017-09-20 16:44] VITALS: BP 123/77
[2017-09-20 17:12] LABS: GLUCOMETER DEV NAME(LOC) BV3S 2; GLUCOSE,POINT OF CARE 163 MG/DL (70-110)
[2017-09-20 17:12] LABS: GLUCOMETER DEV NAME(LOC) BV3S 2; GLUCOSE,POINT OF CARE 107 MG/DL (70-110)
[2017-09-20 17:12] LABS: GLUCOMETER DEV NAME(LOC) BV3S 2; GLUCOSE,POINT OF CARE 74 MG/DL (70-110)
[2017-09-20] MEDS: INSULIN ASPART 100 UNITS/ML - NON-FORMULARY SQ PRN (17:26)
[2017-09-21 06:25] VITALS: BP 126/87
[2017-09-21] MEDS: MetFORMIN HCL 500 MG TABLET PO SCH ×2 (06:31→16:51)
[2017-09-21] MEDS: INSULIN GLARGINE,HUM.REC.ANLOG 100 UNITS/ML SQ SCH ×2 (06:49→17:15)
[2017-09-21 07:17] LABS: GLUCOMETER DEV NAME(LOC) BV3S 2; GLUCOSE,POINT OF CARE 103 MG/DL (70-110)
[2017-09-21 08:03] VITALS: BP 112/50
[2017-09-21] MEDS: BENZTROPINE MESYLATE 1 MG TABLET PO SCH ×2 (09:00→16:51)
[2017-09-21] MEDS: ASPIRIN 81 MG EC TABLET PO SCH (09:00)
[2017-09-21] MEDS: LISINOPRIL 5 MG TABLET PO SCH (09:00)
[2017-09-21] MEDS: RisperiDONE 3 MG TABLET PO SCH ×2 (09:00→16:51)
[2017-09-21 11:37] LABS: GLUCOMETER DEV NAME(LOC) BV3S 2; GLUCOSE,POINT OF CARE 129 MG/DL (70-110)
[2017-09-21] MEDS: INSULIN ASPART 100 UNITS/ML - NON-FORMULARY SQ PRN ×2 (11:40→17:15)
[2017-09-21 16:08] VITALS: BP 133/83
[2017-09-21 18:22] LABS: GLUCOMETER DEV NAME(LOC) BV3S 2; GLUCOSE,POINT OF CARE 170 MG/DL (70-110)
[2017-09-21 20:28] LABS: GLUCOMETER DEV NAME(LOC) BV3S 2; GLUCOSE,POINT OF CARE 87 MG/DL (70-110)
[2017-09-22 06:59] VITALS: BP 110/72
[2017-09-22] MEDS: MetFORMIN HCL 500 MG TABLET PO SCH ×2 (07:03→16:45)
[2017-09-22] MEDS: INSULIN GLARGINE,HUM.REC.ANLOG 100 UNITS/ML SQ SCH ×2 (07:07→16:49)
[2017-09-22] MEDS: INSULIN ASPART 100 UNITS/ML - NON-FORMULARY SQ PRN ×2 (07:07→11:44)
[2017-09-22 07:17] LABS: GLUCOMETER DEV NAME(LOC) BV3S 2; GLUCOSE,POINT OF CARE 133 MG/DL (70-110)
[2017-09-22 08:06] VITALS: BP 120/58
[2017-09-22] MEDS: LISINOPRIL 5 MG TABLET PO SCH (09:07)
[2017-09-22] MEDS: ASPIRIN 81 MG EC TABLET PO SCH (09:07)
[2017-09-22] MEDS: BENZTROPINE MESYLATE 1 MG TABLET PO SCH ×2 (09:07→16:44)
[2017-09-22] MEDS: RisperiDONE 3 MG TABLET PO SCH ×2 (09:07→16:45)
[2017-09-22 13:19] VITALS: BP 132/77
[2017-09-22 16:10] VITALS: BP 127/71
[2017-09-22 17:02] LABS: GLUCOMETER DEV NAME(LOC) BV3S 2; GLUCOSE,POINT OF CARE 154 MG/DL (70-110)
[2017-09-22 17:02] LABS: GLUCOMETER DEV NAME(LOC) BV3S 2; GLUCOSE,POINT OF CARE 90 MG/DL (70-110)
[2017-09-22 21:12] LABS: GLUCOMETER DEV NAME(LOC) BV3S 2; GLUCOSE,POINT OF CARE 62 MG/DL (70-110)
[2017-09-22 21:47] LABS: GLUCOMETER DEV NAME(LOC) BV3S 2; GLUCOSE,POINT OF CARE 98 MG/DL (70-110)
[2017-09-23] MEDS: MetFORMIN HCL 500 MG TABLET PO SCH ×2 (06:36→16:34)
[2017-09-23 06:38] LABS: GLUCOMETER DEV NAME(LOC) BV3S 2; GLUCOSE,POINT OF CARE 77 MG/DL (70-110)
[2017-09-23] MEDS: INSULIN GLARGINE,HUM.REC.ANLOG 100 UNITS/ML SQ SCH ×2 (06:59→17:05)
[2017-09-23 07:07] VITALS: BP 137/64
[2017-09-23] MEDS: RisperiDONE 3 MG TABLET PO SCH ×2 (08:39→16:33)
[2017-09-23] MEDS: LISINOPRIL 5 MG TABLET PO SCH (08:39)
[2017-09-23] MEDS: ASPIRIN 81 MG EC TABLET PO SCH (08:39)
[2017-09-23] MEDS: BENZTROPINE MESYLATE 1 MG TABLET PO SCH ×2 (08:39→16:33)
[2017-09-23 08:48] VITALS: BP 135/76
[2017-09-23 11:17] LABS: GLUCOMETER DEV NAME(LOC) BV3S 2; GLUCOSE,POINT OF CARE 160 MG/DL (70-110)
[2017-09-23] MEDS: INSULIN ASPART 100 UNITS/ML - NON-FORMULARY SQ PRN ×2 (12:23→17:05)
[2017-09-23 16:00] VITALS: BP 114/93
[2017-09-23 16:57] LABS: GLUCOMETER DEV NAME(LOC) BV3S 2; GLUCOSE,POINT OF CARE 148 MG/DL (70-110)
[2017-09-23 20:28] LABS: GLUCOMETER DEV NAME(LOC) BV3S 2; GLUCOSE,POINT OF CARE 83 MG/DL (70-110)
[2017-09-24 04:59] VITALS: BP 108/69
[2017-09-24 06:13] LABS: GLUCOMETER DEV NAME(LOC) BV3S 2; GLUCOSE,POINT OF CARE 115 MG/DL (70-110)
[2017-09-24] MEDS: MetFORMIN HCL 500 MG TABLET PO SCH ×2 (06:35→16:27)
[2017-09-24] MEDS: INSULIN GLARGINE,HUM.REC.ANLOG 100 UNITS/ML SQ SCH ×2 (06:53→17:07)
[2017-09-24] MEDS: BENZTROPINE MESYLATE 1 MG TABLET PO SCH ×2 (08:20→16:27)
[2017-09-24] MEDS: ASPIRIN 81 MG EC TABLET PO SCH (08:20)
[2017-09-24] MEDS: LISINOPRIL 5 MG TABLET PO SCH (08:20)
[2017-09-24 08:34] VITALS: BP 112/75
[2017-09-24] MEDS: RisperiDONE 3 MG TABLET PO SCH ×2 (08:36→16:27)
[2017-09-24] MEDS: INSULIN ASPART 100 UNITS/ML - NON-FORMULARY SQ PRN (11:40)
[2017-09-24 11:47] LABS: GLUCOMETER DEV NAME(LOC) BV3S 2; GLUCOSE,POINT OF CARE 157 MG/DL (70-110)
[2017-09-24 16:09] VITALS: BP 133/77
[2017-09-24 16:47] LABS: GLUCOMETER DEV NAME(LOC) BV3S 2; GLUCOSE,POINT OF CARE 114 MG/DL (70-110)
[2017-09-24] MEDS: ZOLPIDEM TARTRATE 10 MG TABLET PO PRN (20:51)
[2017-09-24 20:57] LABS: GLUCOMETER DEV NAME(LOC) BV3S 2; GLUCOSE,POINT OF CARE 79 MG/DL (70-110)
[2017-09-25 06:25] VITALS: BP 135/80
[2017-09-25 06:27] LABS: GLUCOMETER DEV NAME(LOC) BV3S 2; GLUCOSE,POINT OF CARE 70 MG/DL (70-110)
[2017-09-25] MEDS: MetFORMIN HCL 500 MG TABLET PO SCH ×2 (07:00→16:29)
[2017-09-25] MEDS: INSULIN GLARGINE,HUM.REC.ANLOG 100 UNITS/ML SQ SCH ×2 (07:01→17:32)
[2017-09-25 08:24] VITALS: BP 155/95
[2017-09-25] MEDS: RisperiDONE 3 MG TABLET PO SCH ×2 (08:29→16:29)
[2017-09-25] MEDS: BENZTROPINE MESYLATE 1 MG TABLET PO SCH ×2 (08:29→16:29)
[2017-09-25] MEDS: LISINOPRIL 5 MG TABLET PO SCH (08:29)
[2017-09-25] MEDS: ASPIRIN 81 MG EC TABLET PO SCH (08:29)
[2017-09-25] MEDS: INSULIN ASPART 100 UNITS/ML - NON-FORMULARY SQ PRN ×2 (11:42→17:32)
[2017-09-25 11:53] LABS: GLUCOMETER DEV NAME(LOC) BV3S 2; GLUCOSE,POINT OF CARE 130 MG/DL (70-110)
[2017-09-25] MEDS: LORazepam 2 MG TABLET PO PRN (13:58)
[2017-09-25 16:09] VITALS: BP 127/61
[2017-09-25 16:58] LABS: GLUCOMETER DEV NAME(LOC) BV3S 2; GLUCOSE,POINT OF CARE 177 MG/DL (70-110)
[2017-09-26 06:08] LABS: GLUCOMETER DEV NAME(LOC) BV3S 2; GLUCOSE,POINT OF CARE 70 MG/DL (70-110)
[2017-09-26 06:22] VITALS: BP 136/79
[2017-09-26] MEDS: MetFORMIN HCL 500 MG TABLET PO SCH ×2 (06:25→16:56)
[2017-09-26] MEDS: INSULIN GLARGINE,HUM.REC.ANLOG 100 UNITS/ML SQ SCH ×2 (06:36→16:55)
[2017-09-26 08:31] VITALS: BP 110/77
[2017-09-26] MEDS: ASPIRIN 81 MG EC TABLET PO SCH (08:58)
[2017-09-26] MEDS: BENZTROPINE MESYLATE 1 MG TABLET PO SCH ×2 (08:58→16:56)
[2017-09-26] MEDS: RisperiDONE 3 MG TABLET PO SCH ×2 (08:59→16:56)
[2017-09-26] MEDS: LISINOPRIL 5 MG TABLET PO SCH (08:59)
[2017-09-26 11:57] LABS: GLUCOMETER DEV NAME(LOC) BV3S 2; GLUCOSE,POINT OF CARE 107 MG/DL (70-110)
[2017-09-26 16:15] VITALS: BP 111/85
[2017-09-26 16:33] LABS: GLUCOMETER DEV NAME(LOC) BV3S 2; GLUCOSE,POINT OF CARE 144 MG/DL (70-110)
[2017-09-26] MEDS: INSULIN ASPART 100 UNITS/ML - NON-FORMULARY SQ PRN (16:56)
[2017-09-27 06:27] LABS: GLUCOMETER DEV NAME(LOC) BV3S 2; GLUCOSE,POINT OF CARE 143 MG/DL (70-110)
[2017-09-27 06:40] VITALS: BP 110/86
[2017-09-27] MEDS: MetFORMIN HCL 500 MG TABLET PO SCH ×2 (06:56→16:38)
[2017-09-27] MEDS: INSULIN GLARGINE,HUM.REC.ANLOG 100 UNITS/ML SQ SCH ×2 (06:58→16:45)
[2017-09-27] MEDS: INSULIN ASPART 100 UNITS/ML - NON-FORMULARY SQ PRN ×3 (06:59→21:06)
[2017-09-27 08:00] VITALS: BP 128/64
[2017-09-27] MEDS: LISINOPRIL 5 MG TABLET PO SCH (08:46)
[2017-09-27] MEDS: ASPIRIN 81 MG EC TABLET PO SCH (08:46)
[2017-09-27] MEDS: RisperiDONE 3 MG TABLET PO SCH ×2 (08:46→16:28)
[2017-09-27] MEDS: BENZTROPINE MESYLATE 1 MG TABLET PO SCH ×2 (08:46→16:29)
[2017-09-27 11:42] LABS: GLUCOMETER DEV NAME(LOC) BV3S 2; GLUCOSE,POINT OF CARE 198 MG/DL (70-110)
[2017-09-27 16:47] LABS: GLUCOMETER DEV NAME(LOC) BV3S 2; GLUCOSE,POINT OF CARE 102 MG/DL (70-110)
[2017-09-27 17:43] VITALS: BP 119/69
[2017-09-27 20:57] LABS: GLUCOMETER DEV NAME(LOC) BV3S 2; GLUCOSE,POINT OF CARE 187 MG/DL (70-110)
[2017-09-28 06:52] LABS: GLUCOMETER DEV NAME(LOC) BV3S 2; GLUCOSE,POINT OF CARE 81 MG/DL (70-110)
[2017-09-28 06:52] LABS: GLUCOMETER DEV NAME(LOC) BV3S 2; GLUCOSE,POINT OF CARE 67 MG/DL (70-110)
[2017-09-28] MEDS: MetFORMIN HCL 500 MG TABLET PO SCH (06:52)
[2017-09-28] MEDS: INSULIN GLARGINE,HUM.REC.ANLOG 100 UNITS/ML SQ SCH (06:52)
[2017-09-28 07:02] VITALS: BP 123/72
[2017-09-28] MEDS: ASPIRIN 81 MG EC TABLET PO SCH (08:22)
[2017-09-28] MEDS: BENZTROPINE MESYLATE 1 MG TABLET PO SCH (08:22)
[2017-09-28] MEDS: LISINOPRIL 5 MG TABLET PO SCH (08:22)
[2017-09-28] MEDS: RisperiDONE 3 MG TABLET PO SCH (08:22)
[2017-09-28 08:46] VITALS: BP 165/74
[2017-09-28 11:08] LABS: GLUCOMETER DEV NAME(LOC) BV3S 2; GLUCOSE,POINT OF CARE 129 MG/DL (70-110)
[2017-09-28] MEDS: INSULIN ASPART 100 UNITS/ML - NON-FORMULARY SQ PRN (11:45)
[2017-09-28] MEDS ORDERED: RISP3TAB44 PO (12:28)
[2017-09-28 14:00] VITALS: BP 136/90
[2017-09-28] MEDS ORDERED: INSULIN GLARGINE,HUM.REC.ANLOG 100 UNITS/ML SQ SCH (17:00)
== END 2017-09-28 16:44 | disposition home or self-care (01) | DRG 750 ==
LOC: B3A 18:08
PROVIDERS: ADMIT Psychiatry & Neurology Psychiatry; ATTEND Psychiatry & Neurology Psychiatry
DX: F20.0 Paranoid schizophrenia (principal); E11.22 Type 2 diabetes mellitus with diabetic chronic kidney disease; E78.5 Hyperlipidemia, unspecified; F94.0 Selective mutism; I12.9 Hypertensive chronic kidney disease with stage 1 through stage 4 chronic kidney disease, or unspecified chronic kidney disease; N18.9 Chronic kidney disease, unspecified; K59.09 Other constipation; Z28.21 Immunization not carried out because of patient refusal
CPT/HCPCS: 82962; 83036; 84443; 87081; J1815

== ENCOUNTER 2019-06-25 11:18 | Emergency (ER) | payer MEDICARE, MEDICAID ==
[~2019-06-25] VITALS: Ht 149.9 cm; Wt 54.1 kg
[~2019-06-25 11:18] MED LIST changes: +ATOR20TA86 PO; +GLIP10 PO; -INSLAN SQ; -INSU100V SQ; -LISI-660 PO; +METF-446 PO; -METF10002 PO; -QUET100T PO; +RISP2 IM; +RISPC25 IM
[2019-06-25] MEDS ORDERED: PROP10TA73 PO (11:31)
[2019-06-25] MEDS ORDERED: QUET100T33 PO (11:31)
[2019-06-25] MEDS ORDERED: DULA1.5P IM (11:31)
[2019-06-25] MEDS ORDERED: LISI-660 PO (11:31)
[2019-06-25 12:12] LABS: BASOPHILS % (AUTO) 0.9 % (0.0-2.0); EOSINOPHILS % (AUTO) 0.7 % (1.0-6.0); HEMATOCRIT 32.1 % (36-46); HEMOGLOBIN 10.9 g/dL (12.0-16.0); LYMPHOCYTES # (AUTO) 0.9 K/uL (1.0-4.8); LYMPHOCYTES % (AUTO) 18.1 % (22.0-44.0); MEAN CORPUSCULAR HEMOGLOBIN 33.8 pg (26.0-34.0); MEAN CORPUSCULAR VOLUME 99 fL (80-100); MONOCYTES # (AUTO) 0.3 K/uL (0.1-1.0); MONOCYTES % (AUTO) 6.7 % (2.0-9.0); NEUTROPHILS # (AUTO) 3.6 K/uL (1.8-7.7); NEUTROPHILS % (AUTO) 73.6 % (40.0-70.0); PLATELET COUNT (AUTO) 359 K/uL (150-450); RED BLOOD CELL COUNT(AUTO) 3.23 MIL/uL (4.00-5.20)
[2019-06-25 12:36] LABS: ANION GAP 7 mmol/L (8-16); CARBON DIOXIDE 28 mmol/L (22-29); CHLORIDE 100 mmol/L (98-107); CREATININE 0.69 mg/dL (0.60-1.30); GLOMERULAR FILTR. RATE CALC > 60 mL/min (>60); GLUCOSE,RANDOM 391 mg/dL (70-110); POTASSIUM 3.8 mmol/L (3.5-5.1); SODIUM SERUM 135 mmol/L (136-145); UREA NITROGEN, BLOOD 14 mg/dL (7-18)
[2019-06-25 12:41] LABS: ALANINE AMINOTRANSFERASE 29 U/L (12-78); ALBUMIN 2.9 g/dL (3.4-5.0); ALKALINE PHOSPHATASE 80 U/L (46-116); ASPARTATE AMINOTRANSFERASE 13 U/L (15-37); BILIRUBIN,TOTAL 0.4 mg/dL (0.1-1.0); TOTAL PROTEIN, SERUM 6.5 g/dL (6.4-8.2)
[2019-06-25] MEDS ORDERED: QUEtiapine FUMARATE 100 MG TABLET PO ONE (15:45)
[2019-06-25 18:00] VITALS: BP 119/68
== END 2019-06-25 18:40 | disposition home or self-care (01) ==
LOC: EMS 11:19
DX: F20.9 Schizophrenia, unspecified (principal); E11.9 Type 2 diabetes mellitus without complications; E78.00 Pure hypercholesterolemia, unspecified; I11.9 Hypertensive heart disease without heart failure; Z79.899 Other long term (current) drug therapy; Z79.82 Long term (current) use of aspirin; Z79.84 Long term (current) use of oral hypoglycemic drugs; Z98.890 Other specified postprocedural states
CPT/HCPCS: 36415; 80053; 82962; 85025; 99284; G0480

== ENCOUNTER 2019-10-20 14:55 | Emergency (ER) | payer MEDICARE, MEDICAID ==
[~2019-10-20] VITALS: Ht 157.5 cm; Wt 48.5 kg
[~2019-10-20 14:55] MED LIST changes: +DULA1.5P IM; -GLIP10 PO; +LISI-660 PO; +PROP10TA73 PO; +QUET100T33 PO; -RISP2 IM
[2019-10-20] MEDS ORDERED: RISPC50 IM (15:14)
[2019-10-20] MEDS ORDERED: GLIP5TAB11 PO (15:14)
[2019-10-20] MEDS ORDERED: INSU100V36 SQ (15:14)
[2019-10-20] MEDS ORDERED: SODIUM CHLORIDE 0.9% 1,000 ML IV ONE (15:30)
[2019-10-20] MEDS ORDERED: INSULIN REGULAR, HUMAN 100 UNITS/ML IVP ONE (15:30)
[2019-10-20 15:57] LABS: GLUCOSE,POINT OF CARE 400 MG/DL (70-110)
[2019-10-20 16:06] LABS: ABG A-A DIFF O2 14.6 mmHg (10-20.0); ABG BASE EXCESS -3.3 mmol/L (-2.0-3.0); ABG CARBOXYHEMOGLOBIN 0.4 % (0.0-1.5); ABG HCO3 22.2 mmol/L (22.0-26.0); ABG METHEMOGLOBIN 0.3 % (0.0-1.5); ABG OXYGEN CONTENT 14.6 mL/dL (15.0-23.0); ABG OXYGEN SATURATION 96.2 % (95.0-98.0); ABG OXYHEMOGLOBIN 95.5 % (94.0-100.0); ABG PCO2 35 mmHg (35-45); ABG PH 7.406 (7.35-7.450); ABG TOTAL HEMOGLOBIN 10.8 G/dL (12.0-18.0); PO2, ARTERIAL BG 93.1 mmHg (79.0-87.0); SOURCE, BLOOD GAS ARTERIAL; TEMPERATURE, FAHRENHEIT, BG 99.3 FAHREN (96.0-98.6)
[2019-10-20 16:07] LABS: O2 DEVICE,BLOOD GAS ROOM AIR (ROOM AIR); SITE, BLOOD GAS RT RADIAL
[2019-10-20 16:30] LABS: BASOPHILS % (AUTO) 0.4 % (0.0-2.0); EOSINOPHILS % (AUTO) 0.9 % (1.0-6.0); HEMATOCRIT 32.1 % (36-46); HEMOGLOBIN 10.8 g/dL (12.0-16.0); LYMPHOCYTES # (AUTO) 0.8 K/uL (1.0-4.8); LYMPHOCYTES % (AUTO) 13.9 % (22.0-44.0); MEAN CORPUSCULAR HEMOGLOBIN 31.2 pg (26.0-34.0); MEAN CORPUSCULAR HGB CONC 33.6 G/dL (31.0-37.0); MEAN CORPUSCULAR VOLUME 93 fL (80-100); MONOCYTES # (AUTO) 0.9 K/uL (0.1-1.0); MONOCYTES % (AUTO) 14.2 % (2.0-9.0); NEUTROPHILS # (AUTO) 4.2 K/uL (1.8-7.7); NEUTROPHILS % (AUTO) 70.6 % (40.0-70.0); PLATELET COUNT (AUTO) 222 K/uL (150-450); RED BLOOD CELL COUNT(AUTO) 3.46 MIL/uL (4.00-5.20)
[2019-10-20 16:41] LABS: ANION GAP 9 mmol/L (8-16); CALCIUM, TOTAL 8.8 mg/dL (8.8-10.5); CARBON DIOXIDE 24 mmol/L (22-29); CHLORIDE 101 mmol/L (98-107); CREATININE 0.78 mg/dL (0.60-1.30); GLOMERULAR FILTR. RATE CALC > 60 mL/min (>60); GLUCOSE,RANDOM 342 mg/dL (70-110); POTASSIUM 3.3 mmol/L (3.5-5.1); SODIUM SERUM 134 mmol/L (136-145); UREA NITROGEN, BLOOD 16 mg/dL (7-18)
[2019-10-20 16:48] LABS: GLUCOSE,POINT OF CARE 328 MG/DL (70-110)
[2019-10-20 16:49] LABS: LACTIC ACID 1.3 mmol/L (0.4-2.0)
[2019-10-20 16:54] LABS: ACETONE,BLOOD NEGATIVE (NEGATIVE)
[2019-10-20 16:56] LABS: ALANINE AMINOTRANSFERASE 23 U/L (12-78); ALBUMIN 2.8 g/dL (3.4-5.0); ALKALINE PHOSPHATASE 91 U/L (46-116); ASPARTATE AMINOTRANSFERASE 11 U/L (15-37); BILIRUBIN,TOTAL 0.5 mg/dL (0.1-1.0); LIPASE 111 U/L (73-393); TOTAL PROTEIN, SERUM 6.7 g/dL (6.4-8.2)
[2019-10-20] MEDS ORDERED: MetFORMIN HCL 500 MG TABLET PO ONE (17:15)
[2019-10-20] MEDS ORDERED: QUEtiapine FUMARATE 100 MG TABLET PO ONE (17:15)
[2019-10-20] MEDS ORDERED: POTASSIUM CHLORIDE 10% 40 MEQ/30 ML LIQUID UDCUP PO ONE (17:15)
[2019-10-20 18:05] VITALS: BP 105/60
== END 2019-10-20 18:44 | disposition home or self-care (01) ==
LOC: EMS 14:57
DX: E11.65 Type 2 diabetes mellitus with hyperglycemia (principal); E87.6 Hypokalemia; F20.9 Schizophrenia, unspecified; F32.9 Major depressive disorder, single episode, unspecified; I11.9 Hypertensive heart disease without heart failure; E78.00 Pure hypercholesterolemia, unspecified; Z79.4 Long term (current) use of insulin; Z79.82 Long term (current) use of aspirin; Z79.899 Other long term (current) drug therapy
CPT/HCPCS: 36600; 71045; 80053; 82009; 82805; 82962; 83605; 83690; 84484; 85025; 93005; 96361; 96374; 99285; J1815

== ENCOUNTER 2019-11-07 11:49 | Inpatient (IN) | payer MEDICARE, MEDICAID ==
[~2019-11-07] VITALS: Ht 157.5 cm; Wt 63.6 kg
[~2019-11-07 11:49] MED LIST changes: +GLIP5TAB11 PO; +INSU100V36 SQ; +RISPC50 IM
[2019-11-07] MEDS ORDERED: CIPR-279 PO (12:00)
[2019-11-07] MEDS ORDERED: SODIUM CHLORIDE 0.9% 1,000 ML IV ONE (12:15)
[2019-11-07 13:45] LABS: BASOPHILS % (AUTO) 0.3 % (0.0-2.0); EOSINOPHILS % (AUTO) 0.1 % (1.0-6.0); HEMATOCRIT 36.8 % (36-46); HEMOGLOBIN 12.3 g/dL (12.0-16.0); LYMPHOCYTES # (AUTO) 0.7 K/uL (1.0-4.8); LYMPHOCYTES % (AUTO) 9.9 % (22.0-44.0); MEAN CORPUSCULAR HEMOGLOBIN 31.4 pg (26.0-34.0); MEAN CORPUSCULAR HGB CONC 33.3 G/dL (31.0-37.0); MEAN CORPUSCULAR VOLUME 94 fL (80-100); MONOCYTES # (AUTO) 0.6 K/uL (0.1-1.0); MONOCYTES % (AUTO) 7.7 % (2.0-9.0); PLATELET COUNT (AUTO) 287 K/uL (150-450); RED CELL DISTRIBUTION WIDTH 13.9 % (11.5-14.5)
[2019-11-07 13:53] LABS: ANION GAP 11 mmol/L (8-16); CALCIUM, TOTAL 9.3 mg/dL (8.8-10.5); CARBON DIOXIDE 26 mmol/L (22-29); CHLORIDE 99 mmol/L (98-107); CREATININE 0.77 mg/dL (0.60-1.30); GLOMERULAR FILTR. RATE CALC > 60 mL/min (>60); GLUCOSE,RANDOM 325 mg/dL (70-110); POTASSIUM 3.8 mmol/L (3.5-5.1); SODIUM SERUM 136 mmol/L (136-145); UREA NITROGEN, BLOOD 10 mg/dL (7-18)
[2019-11-07 15:00] LABS: APPEARANCE,URINE CLOUDY (CLEAR); BILIRUBIN,URINE NEGATIVE (NEGATIVE); GLUCOSE, URINE (UA) >=1000 mg/dL (NEGATIVE); KETONES,URINE >=80 mg/dL (NEGATIVE); LEUKOCYTE ESTERASE ,URINE MODERATE (NEGATIVE); NITRATE,URINE NEGATIVE (NEGATIVE); OCCULT BLOOD,URINE MODERATE (NEGATIVE); PROTEIN,URINE NEGATIVE (NEGATIVE); UROBILINOGEN,URINE 0.2 mg/dL (<=1.0)
[2019-11-07 15:15] LABS: WBC,URINE 26-50 /HPF (0-5)
[2019-11-07 15:16] LABS: BACTERIA,URINE Many /HPF (None Seen); SQUAMOUS EPITHELIAL CELL,UR Few /LPF (None Seen)
[2019-11-07] MEDS ORDERED: CefTRIAXone 1 GM/DEXTROSE 50 ML IV ONE (16:45)
[2019-11-07] MEDS ORDERED: 0.9% SODIUM CHLORIDE 10 ML SYRINGE IVP PRN (17:00)
[2019-11-07] MEDS ORDERED: ACETAMINOPHEN 325 MG TABLET PO PRN (17:00)
[2019-11-07] MEDS ORDERED: ONDANSETRON HCL 4 MG/2 ML VIAL IVP PRN (17:00)
[2019-11-07 18:14] LABS: GLUCOSE,POINT OF CARE 267 MG/DL (70-110)
[2019-11-07 18:23] LABS: GLUCOMETER DEV NAME(LOC) 6S.1; GLUCOSE,POINT OF CARE 267 MG/DL (70-110)
[2019-11-07 18:26] VITALS: BP 145/80
[2019-11-07] MEDS: INSULIN LISPRO 100 UNITS/ML SQ PRN ×2 (18:27→21:23)
[2019-11-07] MEDS ORDERED: DEXTROSE 50%-WATER 25 GM/50 ML SYRINGE IVP PRN (18:30)
[2019-11-07 20:00] VITALS: BP 103/57
[2019-11-07 23:17] LABS: GLUCOMETER DEV NAME(LOC) 6N.2; GLUCOSE,POINT OF CARE 235 MG/DL (70-110)
[2019-11-07] MEDS: BENZTROPINE MESYLATE 1 MG TABLET PO SCH (23:38)
[2019-11-07 23:55] VITALS: BP 102/57
[2019-11-08 04:45] VITALS: BP 107/55
[2019-11-08] MEDS: INSULIN LISPRO 100 UNITS/ML SQ PRN ×4 (05:25→20:32)
[2019-11-08 06:05] LABS: GLUCOMETER DEV NAME(LOC) 6N.2; GLUCOSE,POINT OF CARE 233 MG/DL (70-110)
[2019-11-08 07:48] LABS: BASOPHILS % (AUTO) 0.4 % (0.0-2.0); EOSINOPHILS % (AUTO) 0.3 % (1.0-6.0); HEMATOCRIT 33.9 % (36-46); HEMOGLOBIN 11.5 g/dL (12.0-16.0); LYMPHOCYTES # (AUTO) 0.8 K/uL (1.0-4.8); LYMPHOCYTES % (AUTO) 12.2 % (22.0-44.0); MEAN CORPUSCULAR HEMOGLOBIN 31.8 pg (26.0-34.0); MEAN CORPUSCULAR HGB CONC 33.7 G/dL (31.0-37.0); MEAN CORPUSCULAR VOLUME 94 fL (80-100); MONOCYTES # (AUTO) 0.6 K/uL (0.1-1.0); MONOCYTES % (AUTO) 9.3 % (2.0-9.0); NEUTROPHILS % (AUTO) 77.8 % (40.0-70.0); PLATELET COUNT (AUTO) 262 K/uL (150-450); RED CELL DISTRIBUTION WIDTH 13.5 % (11.5-14.5)
[2019-11-08 08:12] VITALS: BP 105/56
[2019-11-08] MEDS: ATORVASTATIN CALCIUM 20 MG TABLET PO SCH (08:48)
[2019-11-08] MEDS: ASPIRIN 81 MG EC TABLET PO SCH (08:48)
[2019-11-08] MEDS: PROPRANOLOL HCL 10 MG TABLET PO SCH (08:48)
[2019-11-08] MEDS: QUEtiapine FUMARATE 100 MG TABLET PO SCH (08:48)
[2019-11-08] MEDS: BENZTROPINE MESYLATE 1 MG TABLET PO SCH ×2 (08:49→20:30)
[2019-11-08] MEDS: LISINOPRIL 5 MG TABLET PO SCH (08:49)
[2019-11-08] MEDS ORDERED: GlipiZIDE 5 MG TABLET PO SCH (09:00)
[2019-11-08 09:01] LABS: ALANINE AMINOTRANSFERASE 12 U/L (12-78); ALBUMIN 2.7 g/dL (3.4-5.0); ALKALINE PHOSPHATASE 72 U/L (46-116); ANION GAP 15 mmol/L (8-16); ASPARTATE AMINOTRANSFERASE 11 U/L (15-37); BILIRUBIN,TOTAL 0.5 mg/dL (0.1-1.0); CALCIUM, TOTAL 8.7 mg/dL (8.8-10.5); CARBON DIOXIDE 22 mmol/L (22-29); CHLORIDE 101 mmol/L (98-107); CREATININE 0.59 mg/dL (0.60-1.30); GLOMERULAR FILTR. RATE CALC > 60 mL/min (>60); GLUCOSE,RANDOM 225 mg/dL (70-110); SODIUM SERUM 138 mmol/L (136-145); TOTAL PROTEIN, SERUM 6.7 g/dL (6.4-8.2); UREA NITROGEN, BLOOD 10 mg/dL (7-18)
[2019-11-08] MEDS ORDERED: POTASSIUM CHLORIDE 20 MEQ ER TABLET PO ONE (11:15)
[2019-11-08 11:31] VITALS: BP 114/64
[2019-11-08 15:21] VITALS: BP 103/61
[2019-11-08] MEDS ORDERED: SODIUM CHLORIDE 0.9% 250 ML IV ONE (15:28)
[2019-11-08] MEDS: CefTRIAXone 1 GM/DEXTROSE 50 ML IV SCH (15:31)
[2019-11-08] MEDS ORDERED: GlipiZIDE 5 MG TABLET PO ONE (17:45)
[2019-11-08] MEDS ORDERED: GlyBURIDE 5 MG TABLET PO SCH (18:00)
[2019-11-08] MEDS: MetFORMIN HCL 500 MG TABLET PO SCH (18:00)
[2019-11-08 19:42] VITALS: BP 108/59
[2019-11-08] MEDS ORDERED: POTASSIUM CHL 10 MEQ/WATER 50 ML IV PRN (21:00)
[2019-11-08] MEDS ORDERED: POTASSIUM CHLORIDE 20 MEQ ER TABLET PO PRN (21:00)
[2019-11-09 00:01] VITALS: BP 114/64
[2019-11-09 00:01] LABS: GLUCOMETER DEV NAME(LOC) 6N.2; GLUCOSE,POINT OF CARE 350 MG/DL (70-110)
[2019-11-09 01:01] LABS: GLUCOMETER DEV NAME(LOC) 6S.1; GLUCOSE,POINT OF CARE 271 MG/DL (70-110)
[2019-11-09 01:01] LABS: GLUCOMETER DEV NAME(LOC) 6S.1; GLUCOSE,POINT OF CARE 343 MG/DL (70-110)
[2019-11-09 04:56] VITALS: BP 103/83
[2019-11-09] MEDS: GlipiZIDE 5 MG TABLET PO SCH ×2 (05:49→17:30)
[2019-11-09] MEDS: INSULIN LISPRO 100 UNITS/ML SQ PRN ×3 (05:51→17:29)
[2019-11-09 06:20] LABS: GLUCOMETER DEV NAME(LOC) 6N.2; GLUCOSE,POINT OF CARE 366 MG/DL (70-110)
[2019-11-09] MEDS ORDERED: GlipiZIDE 5 MG TABLET PO SCH (06:30)
[2019-11-09 07:27] VITALS: BP 104/65
[2019-11-09] MEDS ORDERED: MetFORMIN HCL 500 MG TABLET PO SCH (08:00)
[2019-11-09] MEDS: QUEtiapine FUMARATE 100 MG TABLET PO SCH (08:52)
[2019-11-09] MEDS: MetFORMIN HCL 500 MG TABLET PO SCH ×2 (08:52→17:30)
[2019-11-09] MEDS: ASPIRIN 81 MG EC TABLET PO SCH (08:52)
[2019-11-09] MEDS: PROPRANOLOL HCL 10 MG TABLET PO SCH (08:52)
[2019-11-09] MEDS: BENZTROPINE MESYLATE 1 MG TABLET PO SCH (08:52)
[2019-11-09] MEDS: LISINOPRIL 5 MG TABLET PO SCH (08:52)
[2019-11-09] MEDS: ATORVASTATIN CALCIUM 20 MG TABLET PO SCH (08:52)
[2019-11-09 12:01] VITALS: BP 102/61
[2019-11-09] MEDS ORDERED: GLYB5 PO (13:36)
[2019-11-09] MEDS ORDERED: CEPH-581 PO (13:39)
[2019-11-09] MEDS ORDERED: METF-960 PO (13:40)
[2019-11-09] MEDS: CefTRIAXone 1 GM/DEXTROSE 50 ML IV SCH (15:00)
[2019-11-09 15:18] VITALS: BP 92/59
[2019-11-09] MEDS ORDERED: CEPH-582 PO (16:58)
[2019-11-09 18:26] LABS: GLUCOMETER DEV NAME(LOC) 6N.2; GLUCOSE,POINT OF CARE 335 MG/DL (70-110)
[2019-11-09 18:53] LABS: GLUCOMETER DEV NAME(LOC) 6S.1; GLUCOSE,POINT OF CARE 250 MG/DL (70-110)
== END 2019-11-09 18:20 | disposition home or self-care (01) | DRG 637 ==
LOC: EMS 11:50 → 6S 17:47
PROVIDERS: ADMIT Hospitalist; ATTEND Hospitalist
DX: E11.65 Type 2 diabetes mellitus with hyperglycemia (principal); E43 Unspecified severe protein-calorie malnutrition; N39.0 Urinary tract infection, site not specified; E78.00 Pure hypercholesterolemia, unspecified; I10 Essential (primary) hypertension; F20.9 Schizophrenia, unspecified; Z68.25 Body mass index [BMI] 25.0-25.9, adult; K59.00 Constipation, unspecified; F32.9 Major depressive disorder, single episode, unspecified; E78.5 Hyperlipidemia, unspecified; Z83.3 Family history of diabetes mellitus
CPT/HCPCS: 84132; 87086; J0696; J2405; J7030; J7050

== ENCOUNTER 2019-11-11 08:30 | Emergency (ER) | payer MEDICARE, MEDICAID ==
[~2019-11-11] VITALS: Ht 157.5 cm; Wt 45.5 kg
[~2019-11-11 08:30] MED LIST changes: +CEPH-581 PO; +CEPH-582 PO; +CIPR-279 PO; +GLYB5 PO; +METF-960 PO
[2019-11-11] MEDS ORDERED: INSULIN REGULAR, HUMAN 100 UNITS/ML IVP ONE ×2 (09:15→13:30)
[2019-11-11] MEDS ORDERED: SODIUM CHLORIDE 0.9% 500 ML IV ONE (09:15)
[2019-11-11 10:06] LABS: GLUCOSE,POINT OF CARE 388 MG/DL (70-110)
[2019-11-11 11:35] LABS: GLUCOSE,POINT OF CARE 312 MG/DL (70-110)
[2019-11-11 12:39] LABS: BASOPHILS % (AUTO) 0.2 % (0.0-2.0); EOSINOPHILS % (AUTO) 0.2 % (1.0-6.0); HEMATOCRIT 34.7 % (36-46); HEMOGLOBIN 11.5 g/dL (12.0-16.0); LYMPHOCYTES % (AUTO) 24.5 % (22.0-44.0); MEAN CORPUSCULAR HEMOGLOBIN 31.1 pg (26.0-34.0); MEAN CORPUSCULAR HGB CONC 33.3 G/dL (31.0-37.0); MEAN CORPUSCULAR VOLUME 94 fL (80-100); MONOCYTES # (AUTO) 0.4 K/uL (0.1-1.0); MONOCYTES % (AUTO) 9.2 % (2.0-9.0); NEUTROPHILS # (AUTO) 2.6 K/uL (1.8-7.7); NEUTROPHILS % (AUTO) 65.9 % (40.0-70.0); PLATELET COUNT (AUTO) 272 K/uL (150-450); RED BLOOD CELL COUNT(AUTO) 3.71 MIL/uL (4.00-5.20); RED CELL DISTRIBUTION WIDTH 13.6 % (11.5-14.5)
[2019-11-11 12:51] LABS: PROTHROMBIN TIME 9.9 SEC (9.4-11.6)
[2019-11-11 12:54] LABS: SALICYLATE 3.2 mg/dL (2.8-20.0)
[2019-11-11 12:56] LABS: ANION GAP 11 mmol/L (8-16); CALCIUM, TOTAL 9.1 mg/dL (8.8-10.5); CARBON DIOXIDE 26 mmol/L (22-29); CHLORIDE 103 mmol/L (98-107); GLOMERULAR FILTR. RATE CALC > 60 mL/min (>60); GLUCOSE,RANDOM 306 mg/dL (70-110); POTASSIUM 3.6 mmol/L (3.5-5.1); SODIUM SERUM 140 mmol/L (136-145); UREA NITROGEN, BLOOD 11 mg/dL (7-18)
[2019-11-11 13:01] LABS: ALANINE AMINOTRANSFERASE 16 U/L (12-78); ALBUMIN 3.2 g/dL (3.4-5.0); ALKALINE PHOSPHATASE 77 U/L (46-116); ASPARTATE AMINOTRANSFERASE 9 U/L (15-37); BILIRUBIN,TOTAL 0.5 mg/dL (0.1-1.0); CREATINE KINASE, TOTAL ONLY 29 U/L (26-192); TOTAL PROTEIN, SERUM 7.3 g/dL (6.4-8.2)
[2019-11-11 13:18] LABS: B-TYPE NATRIURETIC PEPTIDE 82 pg/mL (0-100)
[2019-11-11 13:20] LABS: ACETAMINOPHEN < 2 mcg/mL (10-30)
[2019-11-11 13:44] LABS: GLUCOSE,POINT OF CARE 434 MG/DL (70-110)
[2019-11-11 13:49] LABS: GLUCOSE,POINT OF CARE 297 MG/DL (70-110)
[2019-11-11 14:19] VITALS: BP 122/82
== END 2019-11-11 14:35 | disposition home or self-care (01) ==
LOC: EMS 08:34
DX: E11.65 Type 2 diabetes mellitus with hyperglycemia (principal); F32.9 Major depressive disorder, single episode, unspecified; I11.9 Hypertensive heart disease without heart failure; E78.00 Pure hypercholesterolemia, unspecified; F20.9 Schizophrenia, unspecified; Z79.82 Long term (current) use of aspirin; Z79.84 Long term (current) use of oral hypoglycemic drugs; Z79.899 Other long term (current) drug therapy
CPT/HCPCS: 36415; 70450; 71045; 80053; 82550; 82962; 83880; 84484; 85025; 85610; 85730; 93005; 96374; 96376; 99285; G0480; J1815; J7040; G0481

== ENCOUNTER 2020-06-01 11:36 | Inpatient (IN) | payer MEDICARE, MEDICAID ==
[~2020-06-01] VITALS: Ht 152.4 cm; Wt 49.3 kg
[~2020-06-01 11:36] MED LIST changes: -CEPH-581 PO; -CEPH-582 PO; -CIPR-279 PO; -DULA1.5P IM; -GLIP5TAB11 PO; -INSU100V36 SQ; -METF-446 PO; -PROP10TA73 PO; -RISPC25 IM
[2020-06-02 18:11] VITALS: BP 160/73
[2020-06-02] MEDS ORDERED: DEXTROSE 50%-WATER 25 GM/50 ML SYRINGE IVP PRN (18:15)
[2020-06-02] MEDS ORDERED: PNEUMOCOCCAL VACCINE POLYVALENT 0.5 ML VIAL [PPSV23] IM ONE (18:45)
[2020-06-02] MEDS ORDERED: INFLUENZA VIRUS VACCINE QVS 2020-21 (6MO+)/PF 60 MCG/0.5 ML SYRINGE IM ONE (18:45)
[2020-06-02 20:58] VITALS: BP 144/89
[2020-06-02] MEDS: LORazepam 2 MG TABLET PO PRN (21:00)
[2020-06-03] MEDS: MetFORMIN HCL 500 MG TABLET PO SCH ×2 (06:33→16:01)
[2020-06-03] MEDS: GlipiZIDE 5 MG TABLET PO SCH ×2 (06:33→16:01)
[2020-06-03 08:00] VITALS: BP 120/72
[2020-06-03] MEDS: CITALOPRAM HYDROBROMIDE 20 MG TABLET PO SCH (10:18)
[2020-06-03] MEDS: FAMOTIDINE 20 MG TABLET PO SCH (10:18)
[2020-06-03] MEDS: ASPIRIN 81 MG CHEWABLE TABLET PO SCH (10:18)
[2020-06-03] MEDS: RisperiDONE 2 MG TABLET PO SCH ×2 (10:18→16:01)
[2020-06-03] MEDS: DOCUSATE SODIUM 100 MG CAPSULE PO SCH ×2 (10:18→16:00)
[2020-06-03] MEDS: CIPROFLOXACIN HCL 250 MG TABLET PO SCH ×2 (10:18→16:00)
[2020-06-03 16:14] VITALS: BP 119/77
[2020-06-03] MEDS ORDERED: DOCUSATE SODIUM 100 MG CAPSULE PO PRN (18:45)
[2020-06-03] MEDS ORDERED: IBUPROFEN 600 MG TABLET PO PRN (18:45)
[2020-06-03] MEDS ORDERED: PETROLATUM,WHITE 28 GM JELLY TP PRN (18:45)
[2020-06-03] MEDS ORDERED: CloNIDine HCL 0.1 MG TABLET PO PRN (18:45)
[2020-06-03] MEDS ORDERED: BENZOCAINE/MENTHOL LOZENGE PO PRN (18:45)
[2020-06-03] MEDS ORDERED: MAGNESIUM HYDROXIDE SUSPENSION 30 ML UDCUP PO PRN (18:45)
[2020-06-03] MEDS ORDERED: BACITRACIN 28 GM OINTMENT TP PRN (18:45)
[2020-06-03] MEDS ORDERED: LOPERAMIDE HCL 2 MG CAPSULE PO PRN (18:45)
[2020-06-03] MEDS ORDERED: MAG HYDROX/AL HYDROX/SIMETH ES 30 ML SUSPENSION UDCUP PO PRN (18:45)
[2020-06-03] MEDS ORDERED: ALBUTEROL SULFATE HFA 90 MCG/PUFF 8 GM INHALER IH PRN (18:45)
[2020-06-03] MEDS ORDERED: ACETAMINOPHEN 325 MG TABLET PO PRN (18:45)
[2020-06-03] MEDS ORDERED: ONDANSETRON HCL 4 MG TABLET PO PRN (18:45)
[2020-06-03 21:27] LABS: GLUCOMETER DEV NAME(LOC) 3E.C; GLUCOSE,POINT OF CARE 521 MG/DL (70-110)
[2020-06-03] MEDS ORDERED: INSULIN LISPRO 100 UNITS/ML SQ ONE (21:30)
[2020-06-03] MEDS: INSULIN GLARGINE,HUM.REC.ANLOG 100 UNITS/ML SQ SCH (21:39)
[2020-06-03 22:24] LABS: GLUCOMETER DEV NAME(LOC) 3E.C; GLUCOSE,POINT OF CARE 388 MG/DL (70-110)
[2020-06-04] MEDS: GlipiZIDE 5 MG TABLET PO SCH ×2 (07:00→17:00)
[2020-06-04] MEDS: MetFORMIN HCL 500 MG TABLET PO SCH ×2 (07:03→17:30)
[2020-06-04] MEDS: FAMOTIDINE 20 MG TABLET PO SCH (09:05)
[2020-06-04] MEDS: CITALOPRAM HYDROBROMIDE 20 MG TABLET PO SCH (09:05)
[2020-06-04] MEDS: DOCUSATE SODIUM 100 MG CAPSULE PO SCH ×2 (09:05→17:00)
[2020-06-04] MEDS: CIPROFLOXACIN HCL 250 MG TABLET PO SCH ×2 (09:05→17:00)
[2020-06-04] MEDS: RisperiDONE 2 MG TABLET PO SCH ×2 (09:05→17:00)
[2020-06-04] MEDS: ASPIRIN 81 MG CHEWABLE TABLET PO SCH (09:05)
[2020-06-04 12:03] LABS: GLUCOMETER DEV NAME(LOC) 3E.C; GLUCOSE,POINT OF CARE 296 MG/DL (70-110)
[2020-06-04] MEDS: INSULIN LISPRO 100 UNITS/ML SQ PRN ×3 (12:45→21:13)
[2020-06-04 16:46] VITALS: BP 129/68
[2020-06-04 18:07] LABS: GLUCOMETER DEV NAME(LOC) 3E.C; GLUCOSE,POINT OF CARE 334 MG/DL (70-110)
[2020-06-04 20:47] LABS: GLUCOMETER DEV NAME(LOC) 3E.C; GLUCOSE,POINT OF CARE 166 MG/DL (70-110)
[2020-06-04] MEDS: INSULIN GLARGINE,HUM.REC.ANLOG 100 UNITS/ML SQ SCH (21:12)
[2020-06-05] MEDS: GlipiZIDE 5 MG TABLET PO SCH ×2 (07:00→17:00)
[2020-06-05] MEDS: MetFORMIN HCL 500 MG TABLET PO SCH ×2 (07:09→17:30)
[2020-06-05] MEDS: CIPROFLOXACIN HCL 250 MG TABLET PO SCH ×3 (08:18→17:00)
[2020-06-05] MEDS: ASPIRIN 81 MG CHEWABLE TABLET PO SCH ×2 (08:19→09:00)
[2020-06-05] MEDS: CITALOPRAM HYDROBROMIDE 20 MG TABLET PO SCH ×2 (08:19→09:00)
[2020-06-05] MEDS: RisperiDONE 2 MG TABLET PO SCH ×3 (08:19→17:00)
[2020-06-05] MEDS: MULTIVITAMINS WITH MINERALS, THERAPEUTIC TABLET PO SCH (09:00)
[2020-06-05] MEDS: DOCUSATE SODIUM 100 MG CAPSULE PO SCH ×2 (09:00→17:00)
[2020-06-05] MEDS: FAMOTIDINE 20 MG TABLET PO SCH (09:00)
[2020-06-05 11:42] LABS: GLUCOMETER DEV NAME(LOC) 3E.C; GLUCOSE,POINT OF CARE 205 MG/DL (70-110)
[2020-06-05 16:59] VITALS: BP 148/89
[2020-06-05 17:10] LABS: GLUCOMETER DEV NAME(LOC) 3E.C; GLUCOSE,POINT OF CARE 332 MG/DL (70-110)
[2020-06-05 20:50] LABS: GLUCOMETER DEV NAME(LOC) 3E.C; GLUCOSE,POINT OF CARE 272 MG/DL (70-110)
[2020-06-05] MEDS: INSULIN LISPRO 100 UNITS/ML SQ PRN (21:20)
[2020-06-05] MEDS: INSULIN GLARGINE,HUM.REC.ANLOG 100 UNITS/ML SQ SCH (21:20)
[2020-06-06] MEDS: GlipiZIDE 5 MG TABLET PO SCH ×2 (07:00→17:00)
[2020-06-06] MEDS: MetFORMIN HCL 500 MG TABLET PO SCH ×2 (07:07→17:30)
[2020-06-06] MEDS: RisperiDONE MICROSPHERES 37.5 MG/2 ML SYRINGE IM SCH (08:59)
[2020-06-06] MEDS: CIPROFLOXACIN HCL 250 MG TABLET PO SCH ×2 (08:59→17:38)
[2020-06-06] MEDS: RisperiDONE 2 MG TABLET PO SCH ×2 (09:00→17:00)
[2020-06-06] MEDS: DOCUSATE SODIUM 100 MG CAPSULE PO SCH ×2 (09:00→17:38)
[2020-06-06] MEDS: FAMOTIDINE 20 MG TABLET PO SCH (09:00)
[2020-06-06] MEDS: ASPIRIN 81 MG CHEWABLE TABLET PO SCH (09:00)
[2020-06-06] MEDS: MULTIVITAMINS WITH MINERALS, THERAPEUTIC TABLET PO SCH (09:00)
[2020-06-06] MEDS: CITALOPRAM HYDROBROMIDE 20 MG TABLET PO SCH (09:00)
[2020-06-06 12:06] LABS: GLUCOMETER DEV NAME(LOC) 3E.C; GLUCOSE,POINT OF CARE 236 MG/DL (70-110)
[2020-06-06] MEDS: INSULIN LISPRO 100 UNITS/ML SQ PRN ×2 (12:43→21:06)
[2020-06-06 17:00] VITALS: BP 132/77
[2020-06-06] MEDS ORDERED: INSULIN LISPRO 100 UNITS/ML SQ ONE (17:30)
[2020-06-06 17:55] LABS: GLUCOMETER DEV NAME(LOC) 3E.C; GLUCOSE,POINT OF CARE 444 MG/DL (70-110)
[2020-06-06] MEDS: INSULIN GLARGINE,HUM.REC.ANLOG 100 UNITS/ML SQ SCH (21:06)
[2020-06-06 21:36] LABS: GLUCOMETER DEV NAME(LOC) 3E.C; GLUCOSE,POINT OF CARE 211 MG/DL (70-110)
[2020-06-07] MEDS: GlipiZIDE 5 MG TABLET PO SCH ×2 (07:00→17:07)
[2020-06-07] MEDS: MetFORMIN HCL 500 MG TABLET PO SCH ×2 (07:04→17:27)
[2020-06-07] MEDS: MULTIVITAMINS WITH MINERALS, THERAPEUTIC TABLET PO SCH (09:00)
[2020-06-07] MEDS: FAMOTIDINE 20 MG TABLET PO SCH (09:00)
[2020-06-07] MEDS: RisperiDONE 2 MG TABLET PO SCH ×2 (09:00→17:07)
[2020-06-07] MEDS: DOCUSATE SODIUM 100 MG CAPSULE PO SCH ×2 (09:00→17:07)
[2020-06-07] MEDS: CIPROFLOXACIN HCL 250 MG TABLET PO SCH ×2 (09:00→17:07)
[2020-06-07] MEDS: ASPIRIN 81 MG CHEWABLE TABLET PO SCH (09:00)
[2020-06-07] MEDS: CITALOPRAM HYDROBROMIDE 20 MG TABLET PO SCH (09:00)
[2020-06-07] MEDS ORDERED: DiphenhydrAMINE HCL 50 MG/ML VIAL IM ONE (11:00)
[2020-06-07] MEDS ORDERED: HALOPERIDOL LACTATE 5 MG/ML VIAL IM ONE (11:00)
[2020-06-07] MEDS ORDERED: LORazepam 2 MG/ML VIAL IM ONE (11:00)
[2020-06-07 12:02] LABS: GLUCOMETER DEV NAME(LOC) 3E.C; GLUCOSE,POINT OF CARE 322 MG/DL (70-110)
[2020-06-07] MEDS: INSULIN LISPRO 100 UNITS/ML SQ PRN ×2 (14:31→17:10)
[2020-06-07 16:25] VITALS: BP 119/75
[2020-06-07 17:29] LABS: GLUCOMETER DEV NAME(LOC) 3E.C; GLUCOSE,POINT OF CARE 342 MG/DL (70-110)
[2020-06-07] MEDS: INSULIN GLARGINE,HUM.REC.ANLOG 100 UNITS/ML SQ SCH (21:00)
[2020-06-07 21:23] LABS: GLUCOMETER DEV NAME(LOC) 3E.C; GLUCOSE,POINT OF CARE 78 MG/DL (70-110)
[2020-06-07 21:32] LABS: GLUCOMETER DEV NAME(LOC) 3E.C; GLUCOSE,POINT OF CARE 109 MG/DL (70-110)
[2020-06-08] MEDS: MetFORMIN HCL 500 MG TABLET PO SCH ×2 (06:51→17:13)
[2020-06-08] MEDS: GlipiZIDE 5 MG TABLET PO SCH ×2 (06:51→15:55)
[2020-06-08] MEDS: RisperiDONE 2 MG TABLET PO SCH ×2 (09:00→15:55)
[2020-06-08] MEDS: CITALOPRAM HYDROBROMIDE 20 MG TABLET PO SCH (09:00)
[2020-06-08] MEDS: ASPIRIN 81 MG CHEWABLE TABLET PO SCH (09:00)
[2020-06-08] MEDS: MULTIVITAMINS WITH MINERALS, THERAPEUTIC TABLET PO SCH ×2 (09:00→11:57)
[2020-06-08] MEDS: FAMOTIDINE 20 MG TABLET PO SCH (09:00)
[2020-06-08] MEDS: DOCUSATE SODIUM 100 MG CAPSULE PO SCH ×2 (09:00→15:55)
[2020-06-08 11:57] LABS: GLUCOMETER DEV NAME(LOC) 3E.C; GLUCOSE,POINT OF CARE 351 MG/DL (70-110)
[2020-06-08] MEDS: LORazepam 2 MG TABLET PO PRN (11:57)
[2020-06-08] MEDS: HALOPERIDOL 5 MG TABLET PO PRN (11:57)
[2020-06-08] MEDS: INSULIN LISPRO 100 UNITS/ML SQ PRN ×3 (12:01→20:59)
[2020-06-08 16:09] VITALS: BP 138/84
[2020-06-08 16:24] LABS: GLUCOMETER DEV NAME(LOC) 3E.C; GLUCOSE,POINT OF CARE 337 MG/DL (70-110)
[2020-06-08 18:15] LABS: COVID AG,FIA SOURCE NASOPHARYNGEAL
[2020-06-08 20:53] LABS: GLUCOMETER DEV NAME(LOC) 3E.C; GLUCOSE,POINT OF CARE 320 MG/DL (70-110)
[2020-06-08] MEDS: INSULIN GLARGINE,HUM.REC.ANLOG 100 UNITS/ML SQ SCH (20:59)
[2020-06-09] MEDS: GlipiZIDE 5 MG TABLET PO SCH ×2 (06:43→16:32)
[2020-06-09] MEDS: MetFORMIN HCL 500 MG TABLET PO SCH ×2 (06:43→16:33)
[2020-06-09] MEDS: FAMOTIDINE 20 MG TABLET PO SCH (09:00)
[2020-06-09] MEDS: RisperiDONE 2 MG TABLET PO SCH ×2 (09:00→16:32)
[2020-06-09] MEDS: ASPIRIN 81 MG CHEWABLE TABLET PO SCH (09:00)
[2020-06-09] MEDS: MULTIVITAMINS WITH MINERALS, THERAPEUTIC TABLET PO SCH (09:00)
[2020-06-09] MEDS: CITALOPRAM HYDROBROMIDE 20 MG TABLET PO SCH (09:00)
[2020-06-09] MEDS: DOCUSATE SODIUM 100 MG CAPSULE PO SCH ×2 (09:00→16:32)
[2020-06-09] MEDS: INSULIN LISPRO 100 UNITS/ML SQ PRN ×3 (11:48→20:52)
[2020-06-09 12:00] LABS: GLUCOMETER DEV NAME(LOC) 3E.C; GLUCOSE,POINT OF CARE 292 MG/DL (70-110)
[2020-06-09 16:14] VITALS: BP 134/78
[2020-06-09 16:40] LABS: GLUCOMETER DEV NAME(LOC) 3E.C; GLUCOSE,POINT OF CARE 221 MG/DL (70-110)
[2020-06-09 20:00] VITALS: BP 161/90
[2020-06-09] MEDS: LORazepam 2 MG TABLET PO PRN (20:01)
[2020-06-09 20:43] LABS: GLUCOMETER DEV NAME(LOC) 3E.C; GLUCOSE,POINT OF CARE 195 MG/DL (70-110)
[2020-06-09] MEDS: INSULIN GLARGINE,HUM.REC.ANLOG 100 UNITS/ML SQ SCH (20:52)
[2020-06-10] MEDS: GlipiZIDE 5 MG TABLET PO SCH ×2 (07:00→15:58)
[2020-06-10] MEDS: MetFORMIN HCL 500 MG TABLET PO SCH ×2 (07:07→17:26)
[2020-06-10] MEDS: OMEPRAZOLE 20 MG CAPSULE PO PRN (08:25)
[2020-06-10] MEDS: FAMOTIDINE 20 MG TABLET PO SCH (08:35)
[2020-06-10] MEDS: DOCUSATE SODIUM 100 MG CAPSULE PO SCH ×2 (08:35→15:58)
[2020-06-10] MEDS: RisperiDONE 2 MG TABLET PO SCH ×2 (08:35→15:58)
[2020-06-10] MEDS: CITALOPRAM HYDROBROMIDE 20 MG TABLET PO SCH (08:35)
[2020-06-10] MEDS: MULTIVITAMINS WITH MINERALS, THERAPEUTIC TABLET PO SCH (08:35)
[2020-06-10] MEDS: ASPIRIN 81 MG CHEWABLE TABLET PO SCH (08:35)
[2020-06-10 11:33] LABS: GLUCOMETER DEV NAME(LOC) 3E.C; GLUCOSE,POINT OF CARE 153 MG/DL (70-110)
[2020-06-10] MEDS: INSULIN LISPRO 100 UNITS/ML SQ PRN ×2 (11:54→16:49)
[2020-06-10 16:38] LABS: GLUCOMETER DEV NAME(LOC) 3E.C; GLUCOSE,POINT OF CARE 400 MG/DL (70-110)
[2020-06-10 17:00] VITALS: BP 160/57
[2020-06-10 20:19] LABS: GLUCOMETER DEV NAME(LOC) 3E.C; GLUCOSE,POINT OF CARE 127 MG/DL (70-110)
[2020-06-10] MEDS: INSULIN GLARGINE,HUM.REC.ANLOG 100 UNITS/ML SQ SCH (21:00)
[2020-06-11] MEDS: GlipiZIDE 5 MG TABLET PO SCH ×2 (06:53→17:41)
[2020-06-11] MEDS: MetFORMIN HCL 500 MG TABLET PO SCH ×2 (06:53→17:30)
[2020-06-11] MEDS: ATENOLOL 25 MG TABLET PO SCH (09:00)
[2020-06-11] MEDS: DOCUSATE SODIUM 100 MG CAPSULE PO SCH ×2 (09:00→16:16)
[2020-06-11] MEDS: ASPIRIN 81 MG CHEWABLE TABLET PO SCH (09:00)
[2020-06-11] MEDS: MULTIVITAMINS WITH MINERALS, THERAPEUTIC TABLET PO SCH (09:00)
[2020-06-11] MEDS: CITALOPRAM HYDROBROMIDE 20 MG TABLET PO SCH (09:00)
[2020-06-11] MEDS: FAMOTIDINE 20 MG TABLET PO SCH (09:00)
[2020-06-11] MEDS: RisperiDONE 2 MG TABLET PO SCH ×2 (09:00→16:17)
[2020-06-11 12:01] LABS: GLUCOMETER DEV NAME(LOC) 3E.C; GLUCOSE,POINT OF CARE 271 MG/DL (70-110)
[2020-06-11] MEDS: INSULIN LISPRO 100 UNITS/ML SQ PRN ×3 (12:22→20:47)
[2020-06-11 16:07] VITALS: BP 151/73
[2020-06-11 17:00] LABS: GLUCOMETER DEV NAME(LOC) 3E.C; GLUCOSE,POINT OF CARE 381 MG/DL (70-110)
[2020-06-11 20:43] LABS: GLUCOMETER DEV NAME(LOC) 3E.C; GLUCOSE,POINT OF CARE 235 MG/DL (70-110)
[2020-06-11] MEDS: INSULIN GLARGINE,HUM.REC.ANLOG 100 UNITS/ML SQ SCH (20:46)
[2020-06-12] MEDS: GlipiZIDE 5 MG TABLET PO SCH ×2 (06:31→17:00)
[2020-06-12] MEDS: MetFORMIN HCL 500 MG TABLET PO SCH ×2 (06:32→17:30)
[2020-06-12] MEDS: FAMOTIDINE 20 MG TABLET PO SCH (09:00)
[2020-06-12] MEDS: DOCUSATE SODIUM 100 MG CAPSULE PO SCH ×2 (09:00→15:55)
[2020-06-12] MEDS: MULTIVITAMINS WITH MINERALS, THERAPEUTIC TABLET PO SCH (09:00)
[2020-06-12 09:24] VITALS: BP 150/88
[2020-06-12] MEDS: ATENOLOL 25 MG TABLET PO SCH (09:35)
[2020-06-12] MEDS: ASPIRIN 81 MG CHEWABLE TABLET PO SCH (10:21)
[2020-06-12] MEDS: CITALOPRAM HYDROBROMIDE 20 MG TABLET PO SCH (10:21)
[2020-06-12] MEDS: RisperiDONE 2 MG TABLET PO SCH ×2 (10:21→15:54)
[2020-06-12] MEDS ORDERED: INSULIN LISPRO 100 UNITS/ML SQ ONE (11:45)
[2020-06-12 11:46] LABS: GLUCOMETER DEV NAME(LOC) 3E.C; GLUCOSE,POINT OF CARE 410 MG/DL (70-110)
[2020-06-12 14:05] LABS: GLUCOMETER DEV NAME(LOC) 3E.C; GLUCOSE,POINT OF CARE 101 MG/DL (70-110)
[2020-06-12 16:00] VITALS: BP 112/82
[2020-06-12 16:29] LABS: GLUCOMETER DEV NAME(LOC) 3E.C; GLUCOSE,POINT OF CARE 133 MG/DL (70-110)
[2020-06-12 20:38] LABS: GLUCOMETER DEV NAME(LOC) 3E.C; GLUCOSE,POINT OF CARE 298 MG/DL (70-110)
[2020-06-12] MEDS: INSULIN GLARGINE,HUM.REC.ANLOG 100 UNITS/ML SQ SCH (20:39)
[2020-06-12] MEDS: INSULIN LISPRO 100 UNITS/ML SQ PRN (20:39)
[2020-06-12] MEDS: HALOPERIDOL 5 MG TABLET PO PRN (23:49)
[2020-06-12] MEDS: LORazepam 2 MG TABLET PO PRN (23:49)
[2020-06-13] MEDS: INSULIN GLARGINE,HUM.REC.ANLOG 100 UNITS/ML SQ SCH ×3 (06:00→20:24)
[2020-06-13] MEDS: MetFORMIN HCL 500 MG TABLET PO SCH ×2 (06:33→16:18)
[2020-06-13] MEDS: GlipiZIDE 5 MG TABLET PO SCH ×2 (06:33→16:18)
[2020-06-13] MEDS: MULTIVITAMINS WITH MINERALS, THERAPEUTIC TABLET PO SCH (09:00)
[2020-06-13] MEDS: DOCUSATE SODIUM 100 MG CAPSULE PO SCH ×2 (09:00→16:18)
[2020-06-13] MEDS: CITALOPRAM HYDROBROMIDE 20 MG TABLET PO SCH (09:00)
[2020-06-13] MEDS: FAMOTIDINE 20 MG TABLET PO SCH (09:00)
[2020-06-13] MEDS: ASPIRIN 81 MG CHEWABLE TABLET PO SCH (09:00)
[2020-06-13] MEDS: ATENOLOL 25 MG TABLET PO SCH (09:00)
[2020-06-13] MEDS: RisperiDONE 2 MG TABLET PO SCH ×2 (09:00→16:18)
[2020-06-13 10:47] LABS: GLUCOMETER DEV NAME(LOC) 3E.C; GLUCOSE,POINT OF CARE 186 MG/DL (70-110)
[2020-06-13 16:10] VITALS: BP 150/81
[2020-06-13] MEDS: INSULIN LISPRO 100 UNITS/ML SQ PRN ×2 (16:26→20:25)
[2020-06-13 16:29] LABS: GLUCOMETER DEV NAME(LOC) 3E.C; GLUCOSE,POINT OF CARE 348 MG/DL (70-110)
[2020-06-13 20:32] LABS: GLUCOMETER DEV NAME(LOC) 3E.C; GLUCOSE,POINT OF CARE 179 MG/DL (70-110)
[2020-06-14] MEDS: GlipiZIDE 5 MG TABLET PO SCH ×2 (06:32→16:32)
[2020-06-14] MEDS: MetFORMIN HCL 500 MG TABLET PO SCH ×2 (06:32→17:30)
[2020-06-14 08:27] VITALS: BP 137/84
[2020-06-14 08:35] LABS: GLUCOMETER DEV NAME(LOC) 3E.C; GLUCOSE,POINT OF CARE 102 MG/DL (70-110)
[2020-06-14] MEDS: ATENOLOL 25 MG TABLET PO SCH (09:00)
[2020-06-14] MEDS: DOCUSATE SODIUM 100 MG CAPSULE PO SCH ×2 (09:00→16:32)
[2020-06-14] MEDS: MULTIVITAMINS WITH MINERALS, THERAPEUTIC TABLET PO SCH (09:00)
[2020-06-14] MEDS: RisperiDONE 2 MG TABLET PO SCH ×2 (09:00→16:32)
[2020-06-14] MEDS: FAMOTIDINE 20 MG TABLET PO SCH (09:00)
[2020-06-14] MEDS: CITALOPRAM HYDROBROMIDE 20 MG TABLET PO SCH (09:00)
[2020-06-14] MEDS: ASPIRIN 81 MG CHEWABLE TABLET PO SCH (09:00)
[2020-06-14] MEDS: INSULIN GLARGINE,HUM.REC.ANLOG 100 UNITS/ML SQ SCH ×2 (11:08→20:49)
[2020-06-14 11:18] LABS: GLUCOMETER DEV NAME(LOC) 3E.C; GLUCOSE,POINT OF CARE 172 MG/DL (70-110)
[2020-06-14] MEDS: LORazepam 2 MG TABLET PO PRN (11:58)
[2020-06-14] MEDS: INSULIN LISPRO 100 UNITS/ML SQ PRN ×3 (14:00→20:50)
[2020-06-14 16:00] VITALS: BP 125/81
[2020-06-14 16:38] LABS: GLUCOMETER DEV NAME(LOC) 3E.C; GLUCOSE,POINT OF CARE 111 MG/DL (70-110)
[2020-06-14 20:50] LABS: GLUCOMETER DEV NAME(LOC) 3E.C; GLUCOSE,POINT OF CARE 170 MG/DL (70-110)
[2020-06-15] MEDS: GlipiZIDE 5 MG TABLET PO SCH ×3 (06:44→17:00)
[2020-06-15] MEDS: MetFORMIN HCL 500 MG TABLET PO SCH ×2 (06:44→17:30)
[2020-06-15 08:00] VITALS: BP 119/73
[2020-06-15] MEDS: ASPIRIN 81 MG CHEWABLE TABLET PO SCH (08:25)
[2020-06-15] MEDS: ATENOLOL 25 MG TABLET PO SCH (08:25)
[2020-06-15] MEDS: RisperiDONE 2 MG TABLET PO SCH ×2 (08:25→17:00)
[2020-06-15] MEDS: CITALOPRAM HYDROBROMIDE 20 MG TABLET PO SCH (08:25)
[2020-06-15] MEDS: INSULIN LISPRO 100 UNITS/ML SQ PRN ×2 (08:32→12:50)
[2020-06-15 08:41] LABS: GLUCOMETER DEV NAME(LOC) 3E.C; GLUCOSE,POINT OF CARE 357 MG/DL (70-110)
[2020-06-15] MEDS: FAMOTIDINE 20 MG TABLET PO SCH (09:00)
[2020-06-15] MEDS: DOCUSATE SODIUM 100 MG CAPSULE PO SCH ×2 (09:00→17:00)
[2020-06-15] MEDS: MULTIVITAMINS WITH MINERALS, THERAPEUTIC TABLET PO SCH (09:00)
[2020-06-15] MEDS: INSULIN GLARGINE,HUM.REC.ANLOG 100 UNITS/ML SQ SCH ×2 (11:03→21:00)
[2020-06-15 11:10] LABS: GLUCOMETER DEV NAME(LOC) 3E.C; GLUCOSE,POINT OF CARE 134 MG/DL (70-110)
[2020-06-15] MEDS: LORazepam 2 MG TABLET PO PRN (12:55)
[2020-06-15 16:17] VITALS: BP 136/79
[2020-06-15 18:05] LABS: GLUCOMETER DEV NAME(LOC) 3E.C; GLUCOSE,POINT OF CARE 118 MG/DL (70-110)
[2020-06-15 21:14] LABS: GLUCOMETER DEV NAME(LOC) 3E.C; GLUCOSE,POINT OF CARE 85 MG/DL (70-110)
[2020-06-15 22:06] LABS: COVID AG,FIA SOURCE NASAL SWAB
[2020-06-16] MEDS: LORazepam 2 MG TABLET PO PRN (01:20)
[2020-06-16] MEDS: HALOPERIDOL 5 MG TABLET PO PRN ×3 (01:20→16:52)
[2020-06-16 05:24] VITALS: BP 131/81
[2020-06-16] MEDS: MetFORMIN HCL 500 MG TABLET PO SCH ×2 (06:58→17:30)
[2020-06-16] MEDS: GlipiZIDE 5 MG TABLET PO SCH ×2 (06:58→09:08)
[2020-06-16 08:10] VITALS: BP 105/67
[2020-06-16] MEDS: MULTIVITAMINS WITH MINERALS, THERAPEUTIC TABLET PO SCH (09:00)
[2020-06-16] MEDS: DOCUSATE SODIUM 100 MG CAPSULE PO SCH ×2 (09:00→17:00)
[2020-06-16 09:13] LABS: GLUCOMETER DEV NAME(LOC) 3E.C; GLUCOSE,POINT OF CARE 283 MG/DL (70-110)
[2020-06-16] MEDS: CITALOPRAM HYDROBROMIDE 20 MG TABLET PO SCH (09:30)
[2020-06-16] MEDS: ASPIRIN 81 MG CHEWABLE TABLET PO SCH (09:30)
[2020-06-16] MEDS: RisperiDONE 2 MG TABLET PO SCH ×2 (09:30→16:52)
[2020-06-16] MEDS: ATENOLOL 25 MG TABLET PO SCH (09:31)
[2020-06-16] MEDS: FAMOTIDINE 20 MG TABLET PO SCH (09:31)
[2020-06-16] MEDS: INSULIN GLARGINE,HUM.REC.ANLOG 100 UNITS/ML SQ SCH ×2 (09:39→21:04)
[2020-06-16] MEDS: OMEPRAZOLE 20 MG CAPSULE PO PRN (10:41)
[2020-06-16 12:12] LABS: GLUCOMETER DEV NAME(LOC) 3E.C; GLUCOSE,POINT OF CARE 201 MG/DL (70-110)
[2020-06-16 16:04] VITALS: BP 148/84
[2020-06-16] MEDS: INSULIN LISPRO 100 UNITS/ML SQ PRN (17:45)
[2020-06-16 18:29] LABS: GLUCOMETER DEV NAME(LOC) 3E.C; GLUCOSE,POINT OF CARE 230 MG/DL (70-110)
[2020-06-16 20:47] LABS: GLUCOMETER DEV NAME(LOC) 3E.C; GLUCOSE,POINT OF CARE 116 MG/DL (70-110)
[2020-06-17] MEDS: HALOPERIDOL 5 MG TABLET PO PRN (01:32)
[2020-06-17 01:33] VITALS: BP 183/93
[2020-06-17 06:40] LABS: GLUCOMETER DEV NAME(LOC) 3E.C; GLUCOSE,POINT OF CARE 113 MG/DL (70-110)
[2020-06-17] MEDS: MetFORMIN HCL 500 MG TABLET PO SCH ×2 (06:44→17:22)
[2020-06-17] MEDS: GlipiZIDE 5 MG TABLET PO SCH ×2 (06:44→16:58)
[2020-06-17] MEDS: INSULIN LISPRO 100 UNITS/ML SQ PRN ×3 (06:45→20:57)
[2020-06-17] MEDS: ASPIRIN 81 MG CHEWABLE TABLET PO SCH (09:00)
[2020-06-17] MEDS: MULTIVITAMINS WITH MINERALS, THERAPEUTIC TABLET PO SCH (09:00)
[2020-06-17] MEDS: DOCUSATE SODIUM 100 MG CAPSULE PO SCH ×2 (09:00→16:57)
[2020-06-17] MEDS: RisperiDONE 2 MG TABLET PO SCH ×3 (09:00→16:58)
[2020-06-17] MEDS: FAMOTIDINE 20 MG TABLET PO SCH (09:00)
[2020-06-17] MEDS: INSULIN GLARGINE,HUM.REC.ANLOG 100 UNITS/ML SQ SCH ×2 (09:00→20:57)
[2020-06-17] MEDS: CITALOPRAM HYDROBROMIDE 20 MG TABLET PO SCH (09:11)
[2020-06-17] MEDS: ATENOLOL 25 MG TABLET PO SCH (09:25)
[2020-06-17 11:33] LABS: GLUCOMETER DEV NAME(LOC) 3E.C; GLUCOSE,POINT OF CARE 283 MG/DL (70-110)
[2020-06-17 16:23] LABS: GLUCOMETER DEV NAME(LOC) 3E.C; GLUCOSE,POINT OF CARE 272 MG/DL (70-110)
[2020-06-17 18:36] VITALS: BP 125/63
[2020-06-17 20:33] LABS: GLUCOMETER DEV NAME(LOC) 3E.C; GLUCOSE,POINT OF CARE 163 MG/DL (70-110)
[2020-06-18] MEDS: MetFORMIN HCL 500 MG TABLET PO SCH ×2 (06:49→17:30)
[2020-06-18] MEDS: GlipiZIDE 5 MG TABLET PO SCH ×2 (06:49→17:55)
[2020-06-18 06:50] LABS: GLUCOMETER DEV NAME(LOC) 3E.C; GLUCOSE,POINT OF CARE 216 MG/DL (70-110)
[2020-06-18] MEDS: INSULIN LISPRO 100 UNITS/ML SQ PRN ×3 (06:51→17:51)
[2020-06-18 08:09] LABS: GLUCOMETER DEV NAME(LOC) 3E.C; GLUCOSE,POINT OF CARE 188 MG/DL (70-110)
[2020-06-18] MEDS: CITALOPRAM HYDROBROMIDE 20 MG TABLET PO SCH (08:17)
[2020-06-18] MEDS: FAMOTIDINE 20 MG TABLET PO SCH (08:17)
[2020-06-18] MEDS: ATENOLOL 25 MG TABLET PO SCH (08:17)
[2020-06-18] MEDS: RisperiDONE 2 MG TABLET PO SCH ×2 (08:17→17:55)
[2020-06-18] MEDS: ASPIRIN 81 MG CHEWABLE TABLET PO SCH (08:18)
[2020-06-18 08:20] VITALS: BP 130/79
[2020-06-18] MEDS: DOCUSATE SODIUM 100 MG CAPSULE PO SCH ×2 (09:00→17:00)
[2020-06-18] MEDS: MULTIVITAMINS WITH MINERALS, THERAPEUTIC TABLET PO SCH (09:00)
[2020-06-18] MEDS: INSULIN GLARGINE,HUM.REC.ANLOG 100 UNITS/ML SQ SCH ×2 (09:57→21:00)
[2020-06-18 12:02] LABS: GLUCOMETER DEV NAME(LOC) 3E.C; GLUCOSE,POINT OF CARE 117 MG/DL (70-110)
[2020-06-18 17:04] LABS: GLUCOMETER DEV NAME(LOC) 3E.C; GLUCOSE,POINT OF CARE 340 MG/DL (70-110)
[2020-06-18 17:10] VITALS: BP 140/75
[2020-06-18] MEDS: LORazepam 2 MG TABLET PO PRN (17:55)
[2020-06-18 21:37] LABS: GLUCOMETER DEV NAME(LOC) 3E.C; GLUCOSE,POINT OF CARE 90 MG/DL (70-110)
[2020-06-18 21:37] LABS: GLUCOMETER DEV NAME(LOC) 3E.C; GLUCOSE,POINT OF CARE 54 MG/DL (70-110)
[2020-06-19] MEDS: HALOPERIDOL 5 MG TABLET PO PRN
[2020-06-19] MEDS: LORazepam 2 MG TABLET PO PRN
[2020-06-19 00:01] VITALS: BP 158/72
[2020-06-19 06:36] LABS: GLUCOMETER DEV NAME(LOC) 3E.C; GLUCOSE,POINT OF CARE 159 MG/DL (70-110)
[2020-06-19] MEDS: MetFORMIN HCL 500 MG TABLET PO SCH ×2 (06:49→17:30)
[2020-06-19] MEDS: GlipiZIDE 5 MG TABLET PO SCH ×2 (06:49→17:00)
[2020-06-19] MEDS: INSULIN LISPRO 100 UNITS/ML SQ PRN ×4 (06:49→17:26)
[2020-06-19] MEDS: ATENOLOL 25 MG TABLET PO SCH (09:00)
[2020-06-19] MEDS: ASPIRIN 81 MG CHEWABLE TABLET PO SCH (09:00)
[2020-06-19] MEDS: FAMOTIDINE 20 MG TABLET PO SCH (09:00)
[2020-06-19] MEDS: INSULIN GLARGINE,HUM.REC.ANLOG 100 UNITS/ML SQ SCH ×2 (09:00→21:00)
[2020-06-19] MEDS: DOCUSATE SODIUM 100 MG CAPSULE PO SCH ×2 (09:00→17:00)
[2020-06-19] MEDS: RisperiDONE 2 MG TABLET PO SCH ×2 (09:00→17:00)
[2020-06-19] MEDS: MULTIVITAMINS WITH MINERALS, THERAPEUTIC TABLET PO SCH (09:00)
[2020-06-19] MEDS: CITALOPRAM HYDROBROMIDE 20 MG TABLET PO SCH (09:00)
[2020-06-19 11:58] LABS: GLUCOMETER DEV NAME(LOC) 3E.C; GLUCOSE,POINT OF CARE 101 MG/DL (70-110)
[2020-06-19 16:09] VITALS: BP 149/85
[2020-06-19 16:39] LABS: APPEARANCE,URINE TURBID (CLEAR); BILIRUBIN,URINE NEGATIVE (NEGATIVE); GLUCOSE, URINE (UA) >=1000 mg/dL (NEGATIVE); KETONES,URINE NEGATIVE (NEGATIVE); LEUKOCYTE ESTERASE ,URINE LARGE (NEGATIVE); NITRATE,URINE NEGATIVE (NEGATIVE); OCCULT BLOOD,URINE SMALL (NEGATIVE); PH,URINE 5.5 (5.0-8.0); PROTEIN,URINE POS 1+ (NEGATIVE); UROBILINOGEN,URINE 0.2 mg/dL (<=1.0)
[2020-06-19 17:07] LABS: GLUCOMETER DEV NAME(LOC) 3E.C; GLUCOSE,POINT OF CARE 326 MG/DL (70-110)
[2020-06-19 17:15] LABS: BACTERIA,URINE Moderate /HPF (None Seen); SQUAMOUS EPITHELIAL CELL,UR Few /LPF (None Seen); WBC,URINE >100 /HPF (0-5); YEAST,URINE Moderate /HPF (None Seen)
[2020-06-19 21:33] LABS: GLUCOMETER DEV NAME(LOC) 3E.C; GLUCOSE,POINT OF CARE 134 MG/DL (70-110)
[2020-06-20 06:28] LABS: GLUCOMETER DEV NAME(LOC) 3E.C; GLUCOSE,POINT OF CARE 196 MG/DL (70-110)
[2020-06-20] MEDS: GlipiZIDE 5 MG TABLET PO SCH ×3 (06:40→16:43)
[2020-06-20] MEDS: MetFORMIN HCL 500 MG TABLET PO SCH ×2 (06:40→16:43)
[2020-06-20] MEDS: INSULIN LISPRO 100 UNITS/ML SQ PRN ×4 (06:42→21:04)
[2020-06-20 08:00] VITALS: BP 149/85
[2020-06-20] MEDS: CEPHALEXIN MONOHYDRATE 500 MG CAPSULE PO SCH ×2 (09:00→16:43)
[2020-06-20] MEDS: DOCUSATE SODIUM 100 MG CAPSULE PO SCH ×2 (09:00→16:43)
[2020-06-20] MEDS: RisperiDONE 2 MG TABLET PO SCH ×2 (09:00→16:43)
[2020-06-20] MEDS: CITALOPRAM HYDROBROMIDE 20 MG TABLET PO SCH (09:00)
[2020-06-20] MEDS: ASPIRIN 81 MG CHEWABLE TABLET PO SCH (09:00)
[2020-06-20] MEDS: INSULIN GLARGINE,HUM.REC.ANLOG 100 UNITS/ML SQ SCH ×2 (09:00→21:03)
[2020-06-20] MEDS: ATENOLOL 25 MG TABLET PO SCH (09:00)
[2020-06-20] MEDS: FAMOTIDINE 20 MG TABLET PO SCH (09:00)
[2020-06-20 11:55] LABS: GLUCOMETER DEV NAME(LOC) 3E.C; GLUCOSE,POINT OF CARE 419 MG/DL (70-110)
[2020-06-20] MEDS: HALOPERIDOL 5 MG TABLET PO PRN (12:03)
[2020-06-20] MEDS: LORazepam 2 MG TABLET PO PRN (12:04)
[2020-06-20] MEDS: MULTIVITAMINS WITH MINERALS, THERAPEUTIC TABLET PO SCH (12:08)
[2020-06-20] MEDS ORDERED: INSULIN LISPRO 100 UNITS/ML SQ ONE (12:15)
[2020-06-20 12:32] LABS: GLUCOMETER DEV NAME(LOC) 3E.C; GLUCOSE,POINT OF CARE 424 MG/DL (70-110)
[2020-06-20 14:12] LABS: GLUCOMETER DEV NAME(LOC) 3E.C; GLUCOSE,POINT OF CARE 319 MG/DL (70-110)
[2020-06-20] MEDS: RisperiDONE MICROSPHERES 37.5 MG/2 ML SYRINGE IM SCH (15:08)
[2020-06-20 16:00] VITALS: BP 136/83
[2020-06-20 17:17] LABS: GLUCOMETER DEV NAME(LOC) 3E.C; GLUCOSE,POINT OF CARE 142 MG/DL (70-110)
[2020-06-20 21:32] LABS: GLUCOMETER DEV NAME(LOC) 3E.C; GLUCOSE,POINT OF CARE 225 MG/DL (70-110)
[2020-06-21] VITALS (10 sets, daily range): BP systolic 136–194; BP diastolic 58–98
[2020-06-21] MEDS: GlipiZIDE 5 MG TABLET PO SCH ×2 (07:00→17:00)
[2020-06-21] MEDS: MetFORMIN HCL 500 MG TABLET PO SCH ×2 (07:20→17:30)
[2020-06-21 07:30] LABS: GLUCOMETER DEV NAME(LOC) 3E.C; GLUCOSE,POINT OF CARE 64 MG/DL (70-110)
[2020-06-21 07:30] LABS: GLUCOMETER DEV NAME(LOC) 3E.C; GLUCOSE,POINT OF CARE 103 MG/DL (70-110)
[2020-06-21] MEDS: RisperiDONE 2 MG TABLET PO SCH ×2 (09:00→17:00)
[2020-06-21] MEDS: INSULIN GLARGINE,HUM.REC.ANLOG 100 UNITS/ML SQ SCH ×2 (09:00→21:00)
[2020-06-21] MEDS: ASPIRIN 81 MG CHEWABLE TABLET PO SCH (09:00)
[2020-06-21] MEDS: CITALOPRAM HYDROBROMIDE 20 MG TABLET PO SCH (09:00)
[2020-06-21] MEDS: ATENOLOL 25 MG TABLET PO SCH (09:00)
[2020-06-21] MEDS: FAMOTIDINE 20 MG TABLET PO SCH (09:00)
[2020-06-21] MEDS: CEPHALEXIN MONOHYDRATE 500 MG CAPSULE PO SCH ×2 (09:00→17:56)
[2020-06-21] MEDS: DOCUSATE SODIUM 100 MG CAPSULE PO SCH ×2 (09:00→17:00)
[2020-06-21] MEDS: MULTIVITAMINS WITH MINERALS, THERAPEUTIC TABLET PO SCH (09:00)
[2020-06-21] MEDS: INSULIN LISPRO 100 UNITS/ML SQ PRN ×2 (11:38→21:00)
[2020-06-21 11:54] LABS: GLUCOMETER DEV NAME(LOC) 3E.C; GLUCOSE,POINT OF CARE 184 MG/DL (70-110)
[2020-06-21] MEDS: LORazepam 2 MG TABLET PO PRN (16:45)
[2020-06-21] MEDS: HALOPERIDOL 5 MG TABLET PO PRN (16:45)
[2020-06-21 17:14] LABS: GLUCOMETER DEV NAME(LOC) 3E.C; GLUCOSE,POINT OF CARE 93 MG/DL (70-110)
[2020-06-21 21:23] LABS: GLUCOMETER DEV NAME(LOC) 3E.C; GLUCOSE,POINT OF CARE 245 MG/DL (70-110)
[2020-06-22 06:23] LABS: GLUCOMETER DEV NAME(LOC) 3E.C; GLUCOSE,POINT OF CARE 166 MG/DL (70-110)
[2020-06-22] MEDS: GlipiZIDE 5 MG TABLET PO SCH ×2 (06:39→16:43)
[2020-06-22] MEDS: MetFORMIN HCL 500 MG TABLET PO SCH ×2 (06:39→16:42)
[2020-06-22] MEDS: INSULIN LISPRO 100 UNITS/ML SQ PRN ×4 (06:45→21:41)
[2020-06-22] MEDS: CIPROFLOXACIN HCL 250 MG TABLET PO SCH ×3 (07:50→22:36)
[2020-06-22] MEDS: HALOPERIDOL 5 MG TABLET PO PRN (07:51)
[2020-06-22] MEDS: ATENOLOL 25 MG TABLET PO SCH (07:51)
[2020-06-22] MEDS: ASPIRIN 81 MG CHEWABLE TABLET PO SCH (07:51)
[2020-06-22] MEDS: LORazepam 2 MG TABLET PO PRN ×2 (07:51→17:36)
[2020-06-22] MEDS: CITALOPRAM HYDROBROMIDE 20 MG TABLET PO SCH (07:51)
[2020-06-22] MEDS: FAMOTIDINE 20 MG TABLET PO SCH (07:52)
[2020-06-22] MEDS: RisperiDONE 2 MG TABLET PO SCH ×2 (07:52→16:42)
[2020-06-22] MEDS: MULTIVITAMINS WITH MINERALS, THERAPEUTIC TABLET PO SCH (07:53)
[2020-06-22] MEDS: DOCUSATE SODIUM 100 MG CAPSULE PO SCH ×2 (07:53→16:42)
[2020-06-22] MEDS: INSULIN GLARGINE,HUM.REC.ANLOG 100 UNITS/ML SQ SCH ×2 (09:10→21:42)
[2020-06-22 12:12] LABS: GLUCOMETER DEV NAME(LOC) 3E.C; GLUCOSE,POINT OF CARE 241 MG/DL (70-110)
[2020-06-22 16:03] VITALS: BP 116/77
[2020-06-22 17:15] LABS: GLUCOMETER DEV NAME(LOC) 3E.C; GLUCOSE,POINT OF CARE 128 MG/DL (70-110)
[2020-06-22 19:48] LABS: COVID AG,FIA SOURCE NASOPHARYNGEAL
[2020-06-22 21:50] LABS: GLUCOMETER DEV NAME(LOC) 3E.C; GLUCOSE,POINT OF CARE 121 MG/DL (70-110)
[2020-06-23 06:37] LABS: GLUCOMETER DEV NAME(LOC) 3E.C; GLUCOSE,POINT OF CARE 59 MG/DL (70-110)
[2020-06-23] MEDS: GlipiZIDE 5 MG TABLET PO SCH ×2 (07:00→17:53)
[2020-06-23] MEDS: MetFORMIN HCL 500 MG TABLET PO SCH ×2 (07:05→17:30)
[2020-06-23] MEDS: INSULIN LISPRO 100 UNITS/ML SQ PRN ×3 (07:06→21:40)
[2020-06-23 07:14] LABS: GLUCOMETER DEV NAME(LOC) 3E.C; GLUCOSE,POINT OF CARE 109 MG/DL (70-110)
[2020-06-23 08:00] VITALS: BP 154/79
[2020-06-23] MEDS: CIPROFLOXACIN HCL 250 MG TABLET PO SCH ×2 (08:13→21:00)
[2020-06-23] MEDS: CITALOPRAM HYDROBROMIDE 20 MG TABLET PO SCH (08:13)
[2020-06-23] MEDS: ATENOLOL 25 MG TABLET PO SCH (08:13)
[2020-06-23] MEDS: RisperiDONE 2 MG TABLET PO SCH ×2 (08:13→17:53)
[2020-06-23] MEDS: DOCUSATE SODIUM 100 MG CAPSULE PO SCH ×2 (08:30→17:00)
[2020-06-23] MEDS: FAMOTIDINE 20 MG TABLET PO SCH (08:30)
[2020-06-23] MEDS: ASPIRIN 81 MG CHEWABLE TABLET PO SCH (08:30)
[2020-06-23] MEDS: MULTIVITAMINS WITH MINERALS, THERAPEUTIC TABLET PO SCH (08:31)
[2020-06-23] MEDS: INSULIN GLARGINE,HUM.REC.ANLOG 100 UNITS/ML SQ SCH ×2 (09:07→21:34)
[2020-06-23 10:56] LABS: GLUCOMETER DEV NAME(LOC) 3E.C; GLUCOSE,POINT OF CARE 219 MG/DL (70-110)
[2020-06-23 16:09] VITALS: BP 138/84
[2020-06-23 16:45] LABS: GLUCOMETER DEV NAME(LOC) 3E.C; GLUCOSE,POINT OF CARE 91 MG/DL (70-110)
[2020-06-23] MEDS: LORazepam 2 MG TABLET PO PRN (17:53)
[2020-06-23 20:46] LABS: GLUCOMETER DEV NAME(LOC) 3E.C; GLUCOSE,POINT OF CARE 149 MG/DL (70-110)
[2020-06-24] MEDS: GlipiZIDE 5 MG TABLET PO SCH ×2 (07:00→08:03)
[2020-06-24] MEDS: MetFORMIN HCL 500 MG TABLET PO SCH ×2 (07:02→16:44)
[2020-06-24] MEDS: ASPIRIN 81 MG CHEWABLE TABLET PO SCH (08:03)
[2020-06-24] MEDS: LORazepam 2 MG TABLET PO PRN ×2 (08:03→15:44)
[2020-06-24] MEDS: ATENOLOL 25 MG TABLET PO SCH (08:03)
[2020-06-24] MEDS: CIPROFLOXACIN HCL 250 MG TABLET PO SCH ×2 (08:03→20:51)
[2020-06-24] MEDS: RisperiDONE 2 MG TABLET PO SCH ×2 (08:04→16:44)
[2020-06-24] MEDS: CITALOPRAM HYDROBROMIDE 20 MG TABLET PO SCH (08:04)
[2020-06-24] MEDS: FAMOTIDINE 20 MG TABLET PO SCH (08:05)
[2020-06-24] MEDS: INSULIN LISPRO 100 UNITS/ML SQ PRN ×3 (08:05→17:45)
[2020-06-24] MEDS: DOCUSATE SODIUM 100 MG CAPSULE PO SCH ×2 (08:05→16:43)
[2020-06-24 08:06] VITALS: BP 125/78
[2020-06-24] MEDS: MULTIVITAMINS WITH MINERALS, THERAPEUTIC TABLET PO SCH (08:06)
[2020-06-24] MEDS: INSULIN GLARGINE,HUM.REC.ANLOG 100 UNITS/ML SQ SCH ×2 (08:08→21:00)
[2020-06-24 08:55] LABS: GLUCOMETER DEV NAME(LOC) 3E.C; GLUCOSE,POINT OF CARE 179 MG/DL (70-110)
[2020-06-24 11:25] LABS: GLUCOMETER DEV NAME(LOC) 3E.C; GLUCOSE,POINT OF CARE 291 MG/DL (70-110)
[2020-06-24 16:51] LABS: GLUCOMETER DEV NAME(LOC) 3E.C; GLUCOSE,POINT OF CARE 279 MG/DL (70-110)
[2020-06-24 16:58] VITALS: BP 124/68
[2020-06-24 21:16] LABS: GLUCOMETER DEV NAME(LOC) 3E.C; GLUCOSE,POINT OF CARE 71 MG/DL (70-110)
[2020-06-25] MEDS: GlipiZIDE 5 MG TABLET PO SCH ×2 (07:00→07:49)
[2020-06-25] MEDS: MetFORMIN HCL 500 MG TABLET PO SCH ×2 (07:06→17:30)
[2020-06-25] MEDS: ASPIRIN 81 MG CHEWABLE TABLET PO SCH (07:42)
[2020-06-25] MEDS: CITALOPRAM HYDROBROMIDE 20 MG TABLET PO SCH (07:42)
[2020-06-25] MEDS: ATENOLOL 25 MG TABLET PO SCH (07:43)
[2020-06-25] MEDS: LORazepam 2 MG TABLET PO PRN ×2 (07:43→18:00)
[2020-06-25] MEDS: RisperiDONE 2 MG TABLET PO SCH ×2 (07:44→17:58)
[2020-06-25] MEDS: CIPROFLOXACIN HCL 250 MG TABLET PO SCH ×2 (07:44→20:14)
[2020-06-25] MEDS: MULTIVITAMINS WITH MINERALS, THERAPEUTIC TABLET PO SCH (07:45)
[2020-06-25] MEDS: DOCUSATE SODIUM 100 MG CAPSULE PO SCH ×2 (07:45→17:00)
[2020-06-25] MEDS: FAMOTIDINE 20 MG TABLET PO SCH (07:45)
[2020-06-25 07:54] LABS: GLUCOMETER DEV NAME(LOC) 3E.C; GLUCOSE,POINT OF CARE 198 MG/DL (70-110)
[2020-06-25] MEDS: INSULIN LISPRO 100 UNITS/ML SQ PRN ×4 (08:01→21:08)
[2020-06-25] MEDS: INSULIN GLARGINE,HUM.REC.ANLOG 100 UNITS/ML SQ SCH ×2 (08:02→21:07)
[2020-06-25 09:36] LABS: BASOPHILS % (AUTO) 0.4 % (0.0-2.0); EOSINOPHILS % (AUTO) 0.5 % (1.0-6.0); HEMATOCRIT 34.9 % (36-46); HEMOGLOBIN 11.8 g/dL (12.0-16.0); LYMPHOCYTES # (AUTO) 0.8 K/uL (1.0-4.8); LYMPHOCYTES % (AUTO) 12.1 % (22.0-44.0); MEAN CORPUSCULAR HGB CONC 33.6 G/dL (31.0-37.0); MEAN CORPUSCULAR VOLUME 98 fL (80-100); MONOCYTES # (AUTO) 0.5 K/uL (0.1-1.0); MONOCYTES % (AUTO) 7.7 % (2.0-9.0); NEUTROPHILS # (AUTO) 5.1 K/uL (1.8-7.7); NEUTROPHILS % (AUTO) 79.3 % (40.0-70.0); PLATELET COUNT (AUTO) 322 K/uL (150-450); RED BLOOD CELL COUNT(AUTO) 3.56 MIL/uL (4.00-5.20)
[2020-06-25 09:58] LABS: HEMOGLOBIN A1C 9.1 % (3.8-5.6)
[2020-06-25 10:13] LABS: ALANINE AMINOTRANSFERASE 29 U/L (12-78); ALBUMIN 3.1 g/dL (3.4-5.0); ALKALINE PHOSPHATASE 76 U/L (46-116); ANION GAP 3 mmol/L (8-16); ASPARTATE AMINOTRANSFERASE 15 U/L (15-37); BILIRUBIN,TOTAL 0.5 mg/dL (0.1-1.0); CALCIUM, TOTAL 8.8 mg/dL (8.8-10.5); CARBON DIOXIDE 30 mmol/L (22-29); CHLORIDE 105 mmol/L (98-107); CHOL/HDL RATIO 2.8 (3.9-5.7); CHOLESTEROL 187 mg/dL (131-200); CREATININE 0.64 mg/dL (0.60-1.30); GLOMERULAR FILTR. RATE CALC > 60 mL/min (>60); GLUCOSE,RANDOM 222 mg/dL (70-110); HDL CHOLESTEROL 67 mg/dL (40-60); LDL CHOL (CALC.) 97 mg/dL (0-130); PHOSPHORUS 2.6 mg/dL (2.5-4.9); POTASSIUM 4.6 mmol/L (3.5-5.1); SODIUM SERUM 138 mmol/L (136-145); THYROID STIMULATING HORMONE 1.35 uIU/mL (0.36-3.74); TOTAL PROTEIN, SERUM 6.4 g/dL (6.4-8.2); TRIGLYCERIDES 113 mg/dL (15-150); UREA NITROGEN, BLOOD 19 mg/dL (7-18)
[2020-06-25 12:23] LABS: GLUCOMETER DEV NAME(LOC) 3E.C; GLUCOSE,POINT OF CARE 172 MG/DL (70-110)
[2020-06-25 17:00] VITALS: BP 164/75
[2020-06-25 17:20] LABS: GLUCOMETER DEV NAME(LOC) 3E.C; GLUCOSE,POINT OF CARE 238 MG/DL (70-110)
[2020-06-25 21:17] LABS: GLUCOMETER DEV NAME(LOC) 3E.C; GLUCOSE,POINT OF CARE 272 MG/DL (70-110)
[2020-06-26] MEDS: HALOPERIDOL 5 MG TABLET PO PRN (00:38)
[2020-06-26] MEDS: LORazepam 2 MG TABLET PO PRN ×2 (00:38→19:40)
[2020-06-26] MEDS: GlipiZIDE 5 MG TABLET PO SCH ×2 (07:00→08:28)
[2020-06-26] MEDS: MetFORMIN HCL 500 MG TABLET PO SCH ×2 (07:06→16:41)
[2020-06-26 08:06] VITALS: BP 149/84
[2020-06-26 08:10] LABS: GLUCOMETER DEV NAME(LOC) 3E.C; GLUCOSE,POINT OF CARE 277 MG/DL (70-110)
[2020-06-26] MEDS: INSULIN LISPRO 100 UNITS/ML SQ PRN ×4 (08:14→21:17)
[2020-06-26] MEDS: ATENOLOL 25 MG TABLET PO SCH (08:26)
[2020-06-26] MEDS: RisperiDONE 2 MG TABLET PO SCH ×2 (08:27→16:42)
[2020-06-26] MEDS: CITALOPRAM HYDROBROMIDE 20 MG TABLET PO SCH (08:27)
[2020-06-26] MEDS: ASPIRIN 81 MG CHEWABLE TABLET PO SCH (08:27)
[2020-06-26] MEDS: CIPROFLOXACIN HCL 250 MG TABLET PO SCH ×2 (08:28→20:17)
[2020-06-26] MEDS: MULTIVITAMINS WITH MINERALS, THERAPEUTIC TABLET PO SCH (08:43)
[2020-06-26] MEDS: DOCUSATE SODIUM 100 MG CAPSULE PO SCH ×2 (08:43→16:42)
[2020-06-26] MEDS: FAMOTIDINE 20 MG TABLET PO SCH (08:54)
[2020-06-26] MEDS: INSULIN GLARGINE,HUM.REC.ANLOG 100 UNITS/ML SQ SCH ×2 (08:55→21:16)
[2020-06-26 12:11] LABS: GLUCOMETER DEV NAME(LOC) 3E.C; GLUCOSE,POINT OF CARE 230 MG/DL (70-110)
[2020-06-26 16:02] VITALS: BP 115/66
[2020-06-26 16:27] LABS: GLUCOMETER DEV NAME(LOC) 3E.C; GLUCOSE,POINT OF CARE 314 MG/DL (70-110)
[2020-06-26 21:21] LABS: GLUCOMETER DEV NAME(LOC) 3E.C; GLUCOSE,POINT OF CARE 221 MG/DL (70-110)
[2020-06-27 06:35] LABS: GLUCOMETER DEV NAME(LOC) 3E.C; GLUCOSE,POINT OF CARE 115 MG/DL (70-110)
[2020-06-27] MEDS: INSULIN LISPRO 100 UNITS/ML SQ PRN ×4 (06:42→20:54)
[2020-06-27] MEDS: MetFORMIN HCL 500 MG TABLET PO SCH ×2 (06:43→17:40)
[2020-06-27] MEDS: GlipiZIDE 10 MG TABLET PO SCH ×2 (06:43→16:28)
[2020-06-27 08:00] VITALS: BP 158/79
[2020-06-27] MEDS: DOCUSATE SODIUM 100 MG CAPSULE PO SCH ×2 (09:00→16:28)
[2020-06-27] MEDS: FAMOTIDINE 20 MG TABLET PO SCH (09:00)
[2020-06-27] MEDS: MULTIVITAMINS WITH MINERALS, THERAPEUTIC TABLET PO SCH (09:00)
[2020-06-27] MEDS: CIPROFLOXACIN HCL 250 MG TABLET PO SCH (09:48)
[2020-06-27] MEDS: CITALOPRAM HYDROBROMIDE 20 MG TABLET PO SCH (09:48)
[2020-06-27] MEDS: RisperiDONE 2 MG TABLET PO SCH ×2 (09:50→16:29)
[2020-06-27] MEDS: ATENOLOL 25 MG TABLET PO SCH (09:50)
[2020-06-27] MEDS: ASPIRIN 81 MG CHEWABLE TABLET PO SCH (09:50)
[2020-06-27] MEDS: LORazepam 2 MG TABLET PO PRN (09:55)
[2020-06-27] MEDS: INSULIN GLARGINE,HUM.REC.ANLOG 100 UNITS/ML SQ SCH ×2 (09:56→20:53)
[2020-06-27 12:09] LABS: GLUCOMETER DEV NAME(LOC) 3E.C; GLUCOSE,POINT OF CARE 147 MG/DL (70-110)
[2020-06-27 21:20] LABS: GLUCOMETER DEV NAME(LOC) 3E.C; GLUCOSE,POINT OF CARE 319 MG/DL (70-110)
[2020-06-27 21:20] LABS: GLUCOMETER DEV NAME(LOC) 3E.C; GLUCOSE,POINT OF CARE 265 MG/DL (70-110)
[2020-06-28 06:25] LABS: GLUCOMETER DEV NAME(LOC) 3E.C; GLUCOSE,POINT OF CARE 222 MG/DL (70-110)
[2020-06-28] MEDS: GlipiZIDE 10 MG TABLET PO SCH ×2 (06:35→16:14)
[2020-06-28] MEDS: MetFORMIN HCL 500 MG TABLET PO SCH ×2 (06:43→16:15)
[2020-06-28] MEDS: INSULIN LISPRO 100 UNITS/ML SQ PRN ×3 (06:45→17:10)
[2020-06-28] MEDS: MULTIVITAMINS WITH MINERALS, THERAPEUTIC TABLET PO SCH (08:12)
[2020-06-28] MEDS: RisperiDONE 2 MG TABLET PO SCH ×2 (08:13→16:14)
[2020-06-28] MEDS: FAMOTIDINE 20 MG TABLET PO SCH (08:13)
[2020-06-28] MEDS: CITALOPRAM HYDROBROMIDE 20 MG TABLET PO SCH (08:13)
[2020-06-28] MEDS: DOCUSATE SODIUM 100 MG CAPSULE PO SCH ×2 (08:13→16:15)
[2020-06-28] MEDS: ATENOLOL 25 MG TABLET PO SCH (08:13)
[2020-06-28] MEDS: LORazepam 2 MG TABLET PO PRN (08:13)
[2020-06-28] MEDS: ASPIRIN 81 MG CHEWABLE TABLET PO SCH (08:13)
[2020-06-28] MEDS: INSULIN GLARGINE,HUM.REC.ANLOG 100 UNITS/ML SQ SCH ×2 (08:34→21:00)
[2020-06-28 11:15] LABS: GLUCOMETER DEV NAME(LOC) 3E.C; GLUCOSE,POINT OF CARE 199 MG/DL (70-110)
[2020-06-28 16:03] VITALS: BP 138/82
[2020-06-28 16:33] LABS: GLUCOMETER DEV NAME(LOC) 3E.C; GLUCOSE,POINT OF CARE 218 MG/DL (70-110)
[2020-06-28 21:24] LABS: GLUCOMETER DEV NAME(LOC) 3E.C; GLUCOSE,POINT OF CARE 84 MG/DL (70-110)
[2020-06-29 05:16] LABS: GLUCOMETER DEV NAME(LOC) 3E.C; GLUCOSE,POINT OF CARE 225 MG/DL (70-110)
[2020-06-29] MEDS: MetFORMIN HCL 500 MG TABLET PO SCH ×2 (07:02→16:25)
[2020-06-29] MEDS: GlipiZIDE 10 MG TABLET PO SCH ×2 (07:02→16:26)
[2020-06-29] MEDS: INSULIN LISPRO 100 UNITS/ML SQ PRN ×4 (07:04→20:35)
[2020-06-29 08:00] VITALS: BP 149/80
[2020-06-29] MEDS: ASPIRIN 81 MG CHEWABLE TABLET PO SCH (08:11)
[2020-06-29] MEDS: CITALOPRAM HYDROBROMIDE 20 MG TABLET PO SCH (08:11)
[2020-06-29] MEDS: RisperiDONE 2 MG TABLET PO SCH ×2 (08:11→16:26)
[2020-06-29] MEDS: FAMOTIDINE 20 MG TABLET PO SCH (08:11)
[2020-06-29] MEDS: ATENOLOL 25 MG TABLET PO SCH (08:11)
[2020-06-29] MEDS: MULTIVITAMINS WITH MINERALS, THERAPEUTIC TABLET PO SCH (08:12)
[2020-06-29] MEDS: DOCUSATE SODIUM 100 MG CAPSULE PO SCH ×2 (08:12→16:25)
[2020-06-29] MEDS: INSULIN GLARGINE,HUM.REC.ANLOG 100 UNITS/ML SQ SCH ×2 (08:43→20:35)
[2020-06-29 10:03] LABS: COVID AG,FIA SOURCE NASAL SWAB
[2020-06-29 11:13] LABS: GLUCOMETER DEV NAME(LOC) 3E.C; GLUCOSE,POINT OF CARE 264 MG/DL (70-110)
[2020-06-29 16:04] VITALS: BP 136/84
[2020-06-29] MEDS: HALOPERIDOL 5 MG TABLET PO PRN (16:25)
[2020-06-29 20:45] LABS: GLUCOMETER DEV NAME(LOC) 3E.C; GLUCOSE,POINT OF CARE 276 MG/DL (70-110)
[2020-06-29 20:45] LABS: GLUCOMETER DEV NAME(LOC) 3E.C; GLUCOSE,POINT OF CARE 170 MG/DL (70-110)
[2020-06-30] MEDS: GlipiZIDE 10 MG TABLET PO SCH ×2 (06:41→16:19)
[2020-06-30] MEDS: MetFORMIN HCL 500 MG TABLET PO SCH ×2 (06:41→17:33)
[2020-06-30 06:42] LABS: GLUCOMETER DEV NAME(LOC) 3E.C; GLUCOSE,POINT OF CARE 174 MG/DL (70-110)
[2020-06-30] MEDS: INSULIN LISPRO 100 UNITS/ML SQ PRN ×2 (07:09→16:59)
[2020-06-30 08:00] VITALS: BP 140/68
[2020-06-30] MEDS: DOCUSATE SODIUM 100 MG CAPSULE PO SCH ×2 (09:00→16:19)
[2020-06-30] MEDS: MULTIVITAMINS WITH MINERALS, THERAPEUTIC TABLET PO SCH (09:00)
[2020-06-30] MEDS: FAMOTIDINE 20 MG TABLET PO SCH (09:00)
[2020-06-30] MEDS: RisperiDONE 2 MG TABLET PO SCH ×2 (09:21→16:21)
[2020-06-30] MEDS: HALOPERIDOL 5 MG TABLET PO PRN (09:21)
[2020-06-30] MEDS: ASPIRIN 81 MG CHEWABLE TABLET PO SCH (09:21)
[2020-06-30] MEDS: CITALOPRAM HYDROBROMIDE 20 MG TABLET PO SCH (09:24)
[2020-06-30] MEDS: ATENOLOL 25 MG TABLET PO SCH (09:31)
[2020-06-30] MEDS: INSULIN GLARGINE,HUM.REC.ANLOG 100 UNITS/ML SQ SCH ×2 (09:59→21:00)
[2020-06-30 12:22] LABS: GLUCOMETER DEV NAME(LOC) 3E.C; GLUCOSE,POINT OF CARE 224 MG/DL (70-110)
[2020-06-30 16:05] VITALS: BP 131/65
[2020-06-30] MEDS: BENZTROPINE MESYLATE 1 MG TABLET PO SCH (16:19)
[2020-06-30 16:48] LABS: GLUCOMETER DEV NAME(LOC) 3E.C; GLUCOSE,POINT OF CARE 169 MG/DL (70-110)
[2020-06-30] MEDS: LORazepam 2 MG TABLET PO PRN (18:56)
[2020-06-30 21:12] LABS: GLUCOMETER DEV NAME(LOC) 3E.C; GLUCOSE,POINT OF CARE 68 MG/DL (70-110)
[2020-07-01 06:33] LABS: GLUCOMETER DEV NAME(LOC) 3E.C; GLUCOSE,POINT OF CARE 92 MG/DL (70-110)
[2020-07-01] MEDS: GlipiZIDE 10 MG TABLET PO SCH ×2 (06:38→17:01)
[2020-07-01] MEDS: MetFORMIN HCL 500 MG TABLET PO SCH ×2 (06:38→17:27)
[2020-07-01] MEDS: INSULIN LISPRO 100 UNITS/ML SQ PRN ×3 (06:38→16:53)
[2020-07-01 08:52] VITALS: BP 112/76
[2020-07-01] MEDS: MULTIVITAMINS WITH MINERALS, THERAPEUTIC TABLET PO SCH (09:00)
[2020-07-01] MEDS: DOCUSATE SODIUM 100 MG CAPSULE PO SCH ×2 (09:00→17:01)
[2020-07-01] MEDS: INSULIN GLARGINE,HUM.REC.ANLOG 100 UNITS/ML SQ SCH ×2 (09:06→21:00)
[2020-07-01 09:09] LABS: GLUCOMETER DEV NAME(LOC) 3E.C; GLUCOSE,POINT OF CARE 281 MG/DL (70-110)
[2020-07-01] MEDS: FAMOTIDINE 20 MG TABLET PO SCH (09:09)
[2020-07-01] MEDS: BENZTROPINE MESYLATE 1 MG TABLET PO SCH ×2 (09:09→17:01)
[2020-07-01] MEDS: CITALOPRAM HYDROBROMIDE 20 MG TABLET PO SCH (09:09)
[2020-07-01] MEDS: ATENOLOL 25 MG TABLET PO SCH (09:09)
[2020-07-01] MEDS: ASPIRIN 81 MG CHEWABLE TABLET PO SCH (09:09)
[2020-07-01] MEDS: RisperiDONE 2 MG TABLET PO SCH ×2 (09:09→17:01)
[2020-07-01 10:58] LABS: GLUCOMETER DEV NAME(LOC) 3E.C; GLUCOSE,POINT OF CARE 220 MG/DL (70-110)
[2020-07-01 16:18] LABS: GLUCOMETER DEV NAME(LOC) 3E.C; GLUCOSE,POINT OF CARE 221 MG/DL (70-110)
[2020-07-01 16:21] VITALS: BP 121/71
[2020-07-01 20:18] LABS: GLUCOMETER DEV NAME(LOC) 3E.C; GLUCOSE,POINT OF CARE 79 MG/DL (70-110)
[2020-07-01] MEDS: LORazepam 2 MG TABLET PO PRN (23:19)
[2020-07-02] MEDS: GlipiZIDE 10 MG TABLET PO SCH ×2 (06:43→16:17)
[2020-07-02] MEDS: MetFORMIN HCL 500 MG TABLET PO SCH ×2 (06:43→17:23)
[2020-07-02] MEDS: INSULIN LISPRO 100 UNITS/ML SQ PRN ×4 (06:44→20:41)
[2020-07-02 06:47] LABS: GLUCOMETER DEV NAME(LOC) 3E.C; GLUCOSE,POINT OF CARE 184 MG/DL (70-110)
[2020-07-02] MEDS: INSULIN GLARGINE,HUM.REC.ANLOG 100 UNITS/ML SQ SCH ×2 (08:51→20:42)
[2020-07-02 11:04] LABS: GLUCOMETER DEV NAME(LOC) 3E.C; GLUCOSE,POINT OF CARE 280 MG/DL (70-110)
[2020-07-02] MEDS: FAMOTIDINE 20 MG TABLET PO SCH (13:10)
[2020-07-02] MEDS: ASPIRIN 81 MG CHEWABLE TABLET PO SCH (13:10)
[2020-07-02] MEDS: CITALOPRAM HYDROBROMIDE 20 MG TABLET PO SCH (13:11)
[2020-07-02] MEDS: BENZTROPINE MESYLATE 1 MG TABLET PO SCH ×2 (13:11→16:16)
[2020-07-02] MEDS: MULTIVITAMINS WITH MINERALS, THERAPEUTIC TABLET PO SCH (13:11)
[2020-07-02] MEDS: DOCUSATE SODIUM 100 MG CAPSULE PO SCH ×2 (13:11→16:16)
[2020-07-02] MEDS: ATENOLOL 25 MG TABLET PO SCH (13:11)
[2020-07-02] MEDS: RisperiDONE 2 MG TABLET PO SCH ×2 (13:11→16:16)
[2020-07-02 16:34] LABS: GLUCOMETER DEV NAME(LOC) 3E.C; GLUCOSE,POINT OF CARE 250 MG/DL (70-110)
[2020-07-02 16:54] VITALS: BP 137/74
[2020-07-02] MEDS: LORazepam 2 MG TABLET PO PRN (17:42)
[2020-07-02 20:39] LABS: GLUCOMETER DEV NAME(LOC) 3E.C; GLUCOSE,POINT OF CARE 242 MG/DL (70-110)
[2020-07-03] MEDS: MetFORMIN HCL 500 MG TABLET PO SCH ×2 (06:59→17:20)
[2020-07-03] MEDS: GlipiZIDE 10 MG TABLET PO SCH ×2 (06:59→16:08)
[2020-07-03] MEDS: INSULIN LISPRO 100 UNITS/ML SQ PRN ×5 (06:59→20:50)
[2020-07-03 07:05] LABS: GLUCOMETER DEV NAME(LOC) 3E.C; GLUCOSE,POINT OF CARE 206 MG/DL (70-110)
[2020-07-03] MEDS: MULTIVITAMINS WITH MINERALS, THERAPEUTIC TABLET PO SCH (07:36)
[2020-07-03] MEDS: FAMOTIDINE 20 MG TABLET PO SCH (07:36)
[2020-07-03] MEDS: CITALOPRAM HYDROBROMIDE 20 MG TABLET PO SCH (07:38)
[2020-07-03] MEDS: ASPIRIN 81 MG CHEWABLE TABLET PO SCH (07:39)
[2020-07-03] MEDS: ATENOLOL 25 MG TABLET PO SCH (07:39)
[2020-07-03] MEDS: RisperiDONE 2 MG TABLET PO SCH ×2 (07:40→16:08)
[2020-07-03] MEDS: BENZTROPINE MESYLATE 1 MG TABLET PO SCH ×2 (07:40→16:08)
[2020-07-03] MEDS: DOCUSATE SODIUM 100 MG CAPSULE PO SCH ×2 (07:48→16:08)
[2020-07-03 08:00] VITALS: BP 145/76
[2020-07-03] MEDS: INSULIN GLARGINE,HUM.REC.ANLOG 100 UNITS/ML SQ SCH ×2 (08:35→20:49)
[2020-07-03 12:15] LABS: GLUCOMETER DEV NAME(LOC) 3E.C; GLUCOSE,POINT OF CARE 455 MG/DL (70-110)
[2020-07-03 14:24] LABS: GLUCOMETER DEV NAME(LOC) 3E.C; GLUCOSE,POINT OF CARE 70 MG/DL (70-110)
[2020-07-03 16:06] VITALS: BP 131/74
[2020-07-03] MEDS: HALOPERIDOL 5 MG TABLET PO PRN (16:09)
[2020-07-03 16:23] LABS: GLUCOMETER DEV NAME(LOC) 3E.C; GLUCOSE,POINT OF CARE 176 MG/DL (70-110)
[2020-07-03] MEDS: LORazepam 2 MG TABLET PO PRN (19:11)
[2020-07-03 20:29] LABS: GLUCOMETER DEV NAME(LOC) 3E.C; GLUCOSE,POINT OF CARE 217 MG/DL (70-110)
[2020-07-04] MEDS: LORazepam 2 MG TABLET PO PRN (00:02)
[2020-07-04] MEDS: HALOPERIDOL 5 MG TABLET PO PRN (00:02)
[2020-07-04] MEDS: GlipiZIDE 10 MG TABLET PO SCH ×2 (07:00→17:41)
[2020-07-04] MEDS: INSULIN LISPRO 100 UNITS/ML SQ PRN ×3 (07:01→17:32)
[2020-07-04 07:02] LABS: GLUCOMETER DEV NAME(LOC) 3E.C; GLUCOSE,POINT OF CARE 338 MG/DL (70-110)
[2020-07-04] MEDS: MetFORMIN HCL 500 MG TABLET PO SCH ×2 (07:02→17:41)
[2020-07-04] MEDS: MULTIVITAMINS WITH MINERALS, THERAPEUTIC TABLET PO SCH (09:00)
[2020-07-04] MEDS: BENZTROPINE MESYLATE 1 MG TABLET PO SCH ×2 (09:00→17:42)
[2020-07-04] MEDS: FAMOTIDINE 20 MG TABLET PO SCH (09:00)
[2020-07-04] MEDS ORDERED: RisperiDONE MICROSPHERES 50 MG/2 ML SYRINGE IM SCH (09:00)
[2020-07-04] MEDS: DOCUSATE SODIUM 100 MG CAPSULE PO SCH ×2 (09:00→17:41)
[2020-07-04] MEDS: CITALOPRAM HYDROBROMIDE 20 MG TABLET PO SCH (09:28)
[2020-07-04] MEDS: RisperiDONE 2 MG TABLET PO SCH ×2 (09:28→17:41)
[2020-07-04] MEDS: ATENOLOL 25 MG TABLET PO SCH (09:28)
[2020-07-04] MEDS: ASPIRIN 81 MG CHEWABLE TABLET PO SCH (09:28)
[2020-07-04] MEDS: INSULIN GLARGINE,HUM.REC.ANLOG 100 UNITS/ML SQ SCH ×2 (10:32→21:00)
[2020-07-04 11:37] LABS: GLUCOMETER DEV NAME(LOC) 3E.C; GLUCOSE,POINT OF CARE 284 MG/DL (70-110)
[2020-07-04 16:04] VITALS: BP 133/82
[2020-07-04 16:31] LABS: GLUCOMETER DEV NAME(LOC) 3E.C; GLUCOSE,POINT OF CARE 197 MG/DL (70-110)
[2020-07-04 21:23] LABS: GLUCOMETER DEV NAME(LOC) 3E.C; GLUCOSE,POINT OF CARE 123 MG/DL (70-110)
[2020-07-05] MEDS: MetFORMIN HCL 500 MG TABLET PO SCH ×2 (06:47→16:57)
[2020-07-05] MEDS: GlipiZIDE 10 MG TABLET PO SCH ×2 (06:47→16:26)
[2020-07-05] MEDS: INSULIN LISPRO 100 UNITS/ML SQ PRN ×4 (06:47→20:46)
[2020-07-05 06:55] LABS: GLUCOMETER DEV NAME(LOC) 3E.C; GLUCOSE,POINT OF CARE 213 MG/DL (70-110)
[2020-07-05] MEDS: ASPIRIN 81 MG CHEWABLE TABLET PO SCH (08:04)
[2020-07-05] MEDS: ATENOLOL 25 MG TABLET PO SCH (08:04)
[2020-07-05] MEDS: FAMOTIDINE 20 MG TABLET PO SCH (08:04)
[2020-07-05] MEDS: CITALOPRAM HYDROBROMIDE 20 MG TABLET PO SCH (08:04)
[2020-07-05] MEDS: BENZTROPINE MESYLATE 1 MG TABLET PO SCH ×2 (08:05→16:26)
[2020-07-05] MEDS: RisperiDONE 2 MG TABLET PO SCH ×2 (08:05→16:26)
[2020-07-05 08:18] VITALS: BP 131/78
[2020-07-05] MEDS: INSULIN GLARGINE,HUM.REC.ANLOG 100 UNITS/ML SQ SCH ×2 (08:21→20:46)
[2020-07-05] MEDS: MULTIVITAMINS WITH MINERALS, THERAPEUTIC TABLET PO SCH (08:21)
[2020-07-05] MEDS: DOCUSATE SODIUM 100 MG CAPSULE PO SCH ×2 (08:22→16:26)
[2020-07-05] MEDS: LORazepam 2 MG TABLET PO PRN ×2 (10:24→21:59)
[2020-07-05 12:13] LABS: GLUCOMETER DEV NAME(LOC) 3E.C; GLUCOSE,POINT OF CARE 231 MG/DL (70-110)
[2020-07-05] MEDS: HALOPERIDOL 5 MG TABLET PO PRN (15:52)
[2020-07-05 16:35] LABS: GLUCOMETER DEV NAME(LOC) 3E.C; GLUCOSE,POINT OF CARE 149 MG/DL (70-110)
[2020-07-05 17:22] VITALS: BP 142/74
[2020-07-05 20:22] LABS: GLUCOMETER DEV NAME(LOC) 3E.C; GLUCOSE,POINT OF CARE 326 MG/DL (70-110)
[2020-07-06] MEDS: MetFORMIN HCL 500 MG TABLET PO SCH ×2 (07:06→17:24)
[2020-07-06] MEDS: GlipiZIDE 10 MG TABLET PO SCH ×2 (07:06→17:16)
[2020-07-06] MEDS: INSULIN LISPRO 100 UNITS/ML SQ PRN ×3 (07:06→20:46)
[2020-07-06] MEDS: CITALOPRAM HYDROBROMIDE 20 MG TABLET PO SCH (08:20)
[2020-07-06] MEDS: FAMOTIDINE 20 MG TABLET PO SCH (08:20)
[2020-07-06] MEDS: ASPIRIN 81 MG CHEWABLE TABLET PO SCH (08:20)
[2020-07-06] MEDS: RisperiDONE 2 MG TABLET PO SCH ×2 (08:20→15:55)
[2020-07-06] MEDS: ATENOLOL 25 MG TABLET PO SCH (08:20)
[2020-07-06] MEDS: BENZTROPINE MESYLATE 1 MG TABLET PO SCH ×2 (08:20→15:55)
[2020-07-06] MEDS: LORazepam 2 MG TABLET PO PRN (08:20)
[2020-07-06] MEDS: MULTIVITAMINS WITH MINERALS, THERAPEUTIC TABLET PO SCH (08:21)
[2020-07-06] MEDS: DOCUSATE SODIUM 100 MG CAPSULE PO SCH ×2 (08:21→15:55)
[2020-07-06] MEDS: INSULIN GLARGINE,HUM.REC.ANLOG 100 UNITS/ML SQ SCH ×2 (09:47→20:47)
[2020-07-06 09:50] LABS: GLUCOMETER DEV NAME(LOC) 3E.C; GLUCOSE,POINT OF CARE 211 MG/DL (70-110)
[2020-07-06 11:51] LABS: GLUCOMETER DEV NAME(LOC) 3E.C; GLUCOSE,POINT OF CARE 247 MG/DL (70-110)
[2020-07-06 16:11] LABS: COVID AG,FIA SOURCE NASOPHARYNGEAL
[2020-07-06 16:20] LABS: GLUCOMETER DEV NAME(LOC) 3E.C; GLUCOSE,POINT OF CARE 77 MG/DL (70-110)
[2020-07-06 16:27] VITALS: BP 116/71
[2020-07-06 20:55] LABS: GLUCOMETER DEV NAME(LOC) 3E.C; GLUCOSE,POINT OF CARE 185 MG/DL (70-110)
[2020-07-07 05:27] LABS: GLUCOMETER DEV NAME(LOC) 3E.C; GLUCOSE,POINT OF CARE 85 MG/DL (70-110)
[2020-07-07 08:19] VITALS: BP 117/81
[2020-07-07] MEDS: MetFORMIN HCL 500 MG TABLET PO SCH ×2 (08:19→17:30)
[2020-07-07] MEDS: GlipiZIDE 10 MG TABLET PO SCH (08:19)
[2020-07-07] MEDS: BENZTROPINE MESYLATE 1 MG TABLET PO SCH ×2 (08:20→17:00)
[2020-07-07] MEDS: RisperiDONE 2 MG TABLET PO SCH ×2 (08:20→17:00)
[2020-07-07] MEDS: CITALOPRAM HYDROBROMIDE 20 MG TABLET PO SCH (08:20)
[2020-07-07] MEDS: ATENOLOL 25 MG TABLET PO SCH (08:20)
[2020-07-07] MEDS: MULTIVITAMINS WITH MINERALS, THERAPEUTIC TABLET PO SCH (08:20)
[2020-07-07] MEDS: FAMOTIDINE 20 MG TABLET PO SCH (08:20)
[2020-07-07] MEDS: ASPIRIN 81 MG CHEWABLE TABLET PO SCH (08:20)
[2020-07-07] MEDS: DOCUSATE SODIUM 100 MG CAPSULE PO SCH ×2 (08:20→17:00)
[2020-07-07] MEDS: INSULIN GLARGINE,HUM.REC.ANLOG 100 UNITS/ML SQ SCH ×2 (08:56→21:00)
[2020-07-07 12:01] LABS: GLUCOMETER DEV NAME(LOC) 3E.C; GLUCOSE,POINT OF CARE 239 MG/DL (70-110)
[2020-07-07] MEDS: INSULIN LISPRO 100 UNITS/ML SQ PRN (12:05)
[2020-07-07 16:28] VITALS: BP 149/88
[2020-07-07 16:32] LABS: GLUCOMETER DEV NAME(LOC) 3E.C; GLUCOSE,POINT OF CARE 82 MG/DL (70-110)
[2020-07-07] MEDS: LORazepam 2 MG TABLET PO PRN (20:19)
[2020-07-07] MEDS: HALOPERIDOL 5 MG TABLET PO PRN (20:19)
[2020-07-07 21:04] LABS: GLUCOMETER DEV NAME(LOC) 3E.C; GLUCOSE,POINT OF CARE 111 MG/DL (70-110)
[2020-07-08] MEDS: HALOPERIDOL 5 MG TABLET PO PRN ×2 (00:36→10:26)
[2020-07-08] MEDS: LORazepam 2 MG TABLET PO PRN (00:36)
[2020-07-08] MEDS: INSULIN LISPRO 100 UNITS/ML SQ PRN ×4 (07:03→21:19)
[2020-07-08] MEDS: MetFORMIN HCL 500 MG TABLET PO SCH ×2 (07:12→16:46)
[2020-07-08 07:57] LABS: GLUCOMETER DEV NAME(LOC) 3E.C; GLUCOSE,POINT OF CARE 228 MG/DL (70-110)
[2020-07-08 08:04] VITALS: BP 162/74
[2020-07-08] MEDS: INSULIN GLARGINE,HUM.REC.ANLOG 100 UNITS/ML SQ SCH ×2 (10:14→21:18)
[2020-07-08] MEDS: MULTIVITAMINS WITH MINERALS, THERAPEUTIC TABLET PO SCH (10:18)
[2020-07-08] MEDS: ASPIRIN 81 MG CHEWABLE TABLET PO SCH (10:26)
[2020-07-08] MEDS: RisperiDONE 2 MG TABLET PO SCH ×2 (10:26→16:47)
[2020-07-08] MEDS: BENZTROPINE MESYLATE 1 MG TABLET PO SCH ×2 (10:26→16:47)
[2020-07-08] MEDS: CITALOPRAM HYDROBROMIDE 20 MG TABLET PO SCH (10:26)
[2020-07-08] MEDS: DOCUSATE SODIUM 100 MG CAPSULE PO SCH ×2 (10:27→16:47)
[2020-07-08] MEDS: OMEPRAZOLE 20 MG CAPSULE PO PRN (10:27)
[2020-07-08] MEDS: FAMOTIDINE 20 MG TABLET PO SCH (10:27)
[2020-07-08] MEDS: ATENOLOL 25 MG TABLET PO SCH (10:27)
[2020-07-08 11:39] LABS: GLUCOMETER DEV NAME(LOC) 3E.C; GLUCOSE,POINT OF CARE 292 MG/DL (70-110)
[2020-07-08 16:01] VITALS: BP 103/65
[2020-07-08 16:57] LABS: GLUCOMETER DEV NAME(LOC) 3E.C; GLUCOSE,POINT OF CARE 334 MG/DL (70-110)
[2020-07-08 21:30] LABS: GLUCOMETER DEV NAME(LOC) 3E.C; GLUCOSE,POINT OF CARE 126 MG/DL (70-110)
[2020-07-09 06:51] LABS: GLUCOMETER DEV NAME(LOC) 3E.C; GLUCOSE,POINT OF CARE 200 MG/DL (70-110)
[2020-07-09] MEDS: INSULIN LISPRO 100 UNITS/ML SQ PRN ×2 (06:56→18:05)
[2020-07-09] MEDS: MetFORMIN HCL 500 MG TABLET PO SCH ×2 (07:01→17:30)
[2020-07-09 08:00] VITALS: BP 142/79
[2020-07-09] MEDS: MULTIVITAMINS WITH MINERALS, THERAPEUTIC TABLET PO SCH (09:00)
[2020-07-09] MEDS: DOCUSATE SODIUM 100 MG CAPSULE PO SCH ×2 (09:00→17:00)
[2020-07-09] MEDS: ATENOLOL 25 MG TABLET PO SCH (09:01)
[2020-07-09] MEDS: BENZTROPINE MESYLATE 1 MG TABLET PO SCH ×3 (09:02→18:48)
[2020-07-09] MEDS: FAMOTIDINE 20 MG TABLET PO SCH (09:02)
[2020-07-09] MEDS: CITALOPRAM HYDROBROMIDE 20 MG TABLET PO SCH (09:02)
[2020-07-09] MEDS: ASPIRIN 81 MG CHEWABLE TABLET PO SCH (09:02)
[2020-07-09] MEDS: RisperiDONE 2 MG TABLET PO SCH ×2 (09:02→18:49)
[2020-07-09] MEDS: INSULIN GLARGINE,HUM.REC.ANLOG 100 UNITS/ML SQ SCH ×2 (09:11→21:00)
[2020-07-09 11:26] LABS: GLUCOMETER DEV NAME(LOC) 3E.C; GLUCOSE,POINT OF CARE 84 MG/DL (70-110)
[2020-07-09 16:56] VITALS: BP 126/60
[2020-07-09 17:50] LABS: GLUCOMETER DEV NAME(LOC) 3E.C; GLUCOSE,POINT OF CARE 156 MG/DL (70-110)
[2020-07-09] MEDS: HALOPERIDOL 5 MG TABLET PO PRN (18:48)
[2020-07-09] MEDS: LORazepam 2 MG TABLET PO PRN (18:48)
[2020-07-09] MEDS ORDERED: DOCUSATE SODIUM 100 MG CAPSULE PO PRN (21:00)
[2020-07-09 21:28] LABS: GLUCOMETER DEV NAME(LOC) 3E.C; GLUCOSE,POINT OF CARE 103 MG/DL (70-110)
[2020-07-10] MEDS: MetFORMIN HCL 500 MG TABLET PO SCH ×2 (07:05→16:39)
[2020-07-10] MEDS: INSULIN LISPRO 100 UNITS/ML SQ PRN ×4 (07:10→21:17)
[2020-07-10 07:25] LABS: BAND NEUTROPHILS % (MANUAL) 0 % (0-5)
[2020-07-10 07:27] LABS: HEMATOCRIT 40.4 % (36-46); HEMOGLOBIN 13.3 g/dL (12.0-16.0); MEAN CORPUSCULAR VOLUME 97 fL (80-100); PLATELET COUNT (AUTO) 379 K/uL (150-450); RED BLOOD CELL COUNT(AUTO) 4.16 MIL/uL (4.00-5.20); RED CELL DISTRIBUTION WIDTH 13.8 % (11.5-14.5)
[2020-07-10 08:02] LABS: ANION GAP 12 mmol/L (8-16); CALCIUM, TOTAL 9.4 mg/dL (8.8-10.5); CARBON DIOXIDE 27 mmol/L (22-29); CHLORIDE 103 mmol/L (98-107); CREATININE 0.84 mg/dL (0.60-1.30); GLOMERULAR FILTR. RATE CALC > 60 mL/min (>60); GLUCOSE,RANDOM 264 mg/dL (70-110); PHOSPHORUS 3.3 mg/dL (2.5-4.9); SODIUM SERUM 142 mmol/L (136-145); UREA NITROGEN, BLOOD 15 mg/dL (7-18)
[2020-07-10 08:03] LABS: EOSINOPHILS % (MANUAL) 1 % (1-6); LYMPHOCYTES % (MANUAL) 26 % (22-44); MONOCYTES % (MANUAL) 3 % (2-9); SEGMENTED NEUTROPHILS % 70 % (40-70)
[2020-07-10] MEDS: ASPIRIN 81 MG CHEWABLE TABLET PO SCH (08:11)
[2020-07-10] MEDS: FAMOTIDINE 20 MG TABLET PO SCH (08:11)
[2020-07-10] MEDS: RisperiDONE 2 MG TABLET PO SCH ×2 (08:11→16:39)
[2020-07-10] MEDS: ATENOLOL 25 MG TABLET PO SCH (08:11)
[2020-07-10] MEDS: CITALOPRAM HYDROBROMIDE 20 MG TABLET PO SCH (08:11)
[2020-07-10] MEDS: BENZTROPINE MESYLATE 1 MG TABLET PO SCH ×2 (08:12→16:39)
[2020-07-10] MEDS: MULTIVITAMINS WITH MINERALS, THERAPEUTIC TABLET PO SCH (08:29)
[2020-07-10] MEDS: INSULIN GLARGINE,HUM.REC.ANLOG 100 UNITS/ML SQ SCH ×2 (08:33→21:18)
[2020-07-10 08:36] VITALS: BP 126/80
[2020-07-10 09:33] LABS: GLUCOMETER DEV NAME(LOC) 3E.C; GLUCOSE,POINT OF CARE 237 MG/DL (70-110)
[2020-07-10 11:40] LABS: GLUCOMETER DEV NAME(LOC) 3E.C; GLUCOSE,POINT OF CARE 382 MG/DL (70-110)
[2020-07-10 16:46] LABS: GLUCOMETER DEV NAME(LOC) 3E.C; GLUCOSE,POINT OF CARE 134 MG/DL (70-110)
[2020-07-10 17:12] VITALS: BP 107/60
[2020-07-10 21:23] LABS: GLUCOMETER DEV NAME(LOC) 3E.C; GLUCOSE,POINT OF CARE 222 MG/DL (70-110)
[2020-07-11 06:41] LABS: GLUCOMETER DEV NAME(LOC) 3E.C; GLUCOSE,POINT OF CARE 238 MG/DL (70-110)
[2020-07-11] MEDS: MetFORMIN HCL 500 MG TABLET PO SCH ×2 (06:55→16:43)
[2020-07-11] MEDS: INSULIN LISPRO 100 UNITS/ML SQ PRN ×3 (06:58→16:49)
[2020-07-11 08:00] VITALS: BP 130/68
[2020-07-11] MEDS: RisperiDONE 2 MG TABLET PO SCH ×2 (08:34→16:42)
[2020-07-11] MEDS: ASPIRIN 81 MG CHEWABLE TABLET PO SCH (08:34)
[2020-07-11] MEDS: FAMOTIDINE 20 MG TABLET PO SCH (08:34)
[2020-07-11] MEDS: CITALOPRAM HYDROBROMIDE 20 MG TABLET PO SCH (08:34)
[2020-07-11] MEDS: ATENOLOL 25 MG TABLET PO SCH (08:35)
[2020-07-11] MEDS: BENZTROPINE MESYLATE 1 MG TABLET PO SCH ×2 (08:35→16:42)
[2020-07-11] MEDS: MULTIVITAMINS WITH MINERALS, THERAPEUTIC TABLET PO SCH (08:35)
[2020-07-11] MEDS: INSULIN GLARGINE,HUM.REC.ANLOG 100 UNITS/ML SQ SCH ×2 (08:46→20:15)
[2020-07-11 11:08] LABS: GLUCOMETER DEV NAME(LOC) 3E.C; GLUCOSE,POINT OF CARE 159 MG/DL (70-110)
[2020-07-11 16:34] LABS: GLUCOMETER DEV NAME(LOC) 3E.C; GLUCOSE,POINT OF CARE 122 MG/DL (70-110)
[2020-07-11 17:00] VITALS: BP 154/63
[2020-07-11 20:20] LABS: GLUCOMETER DEV NAME(LOC) 3E.C; GLUCOSE,POINT OF CARE 96 MG/DL (70-110)
[2020-07-12] MEDS: HALOPERIDOL 5 MG TABLET PO PRN (04:15)
[2020-07-12 06:26] LABS: GLUCOMETER DEV NAME(LOC) 3E.C; GLUCOSE,POINT OF CARE 112 MG/DL (70-110)
[2020-07-12] MEDS: MetFORMIN HCL 500 MG TABLET PO SCH ×2 (06:46→17:06)
[2020-07-12] MEDS: INSULIN LISPRO 100 UNITS/ML SQ PRN ×4 (06:47→21:16)
[2020-07-12] MEDS: ASPIRIN 81 MG CHEWABLE TABLET PO SCH (08:09)
[2020-07-12] MEDS: MULTIVITAMINS WITH MINERALS, THERAPEUTIC TABLET PO SCH (08:09)
[2020-07-12] MEDS: ATENOLOL 25 MG TABLET PO SCH (08:09)
[2020-07-12] MEDS: FAMOTIDINE 20 MG TABLET PO SCH (08:09)
[2020-07-12] MEDS: CITALOPRAM HYDROBROMIDE 20 MG TABLET PO SCH (08:09)
[2020-07-12] MEDS: BENZTROPINE MESYLATE 1 MG TABLET PO SCH ×2 (08:09→17:06)
[2020-07-12] MEDS: RisperiDONE 2 MG TABLET PO SCH ×2 (08:09→17:06)
[2020-07-12 08:29] VITALS: BP 121/67
[2020-07-12] MEDS: INSULIN GLARGINE,HUM.REC.ANLOG 100 UNITS/ML SQ SCH ×2 (09:40→21:15)
[2020-07-12 11:21] LABS: GLUCOMETER DEV NAME(LOC) 3E.C; GLUCOSE,POINT OF CARE 319 MG/DL (70-110)
[2020-07-12 16:12] VITALS: BP 127/76
[2020-07-12 17:17] LABS: GLUCOMETER DEV NAME(LOC) 3E.C; GLUCOSE,POINT OF CARE 222 MG/DL (70-110)
[2020-07-12 21:27] LABS: GLUCOMETER DEV NAME(LOC) 3E.C; GLUCOSE,POINT OF CARE 223 MG/DL (70-110)
[2020-07-13] MEDS: MetFORMIN HCL 500 MG TABLET PO SCH ×2 (06:42→17:07)
[2020-07-13] MEDS: INSULIN LISPRO 100 UNITS/ML SQ PRN ×4 (06:45→22:02)
[2020-07-13 06:51] LABS: GLUCOMETER DEV NAME(LOC) 3E.C; GLUCOSE,POINT OF CARE 236 MG/DL (70-110)
[2020-07-13 08:00] VITALS: BP 123/67
[2020-07-13] MEDS: ASPIRIN 81 MG CHEWABLE TABLET PO SCH (08:09)
[2020-07-13] MEDS: RisperiDONE 2 MG TABLET PO SCH ×2 (08:09→17:07)
[2020-07-13] MEDS: ATENOLOL 25 MG TABLET PO SCH (08:09)
[2020-07-13] MEDS: BENZTROPINE MESYLATE 1 MG TABLET PO SCH ×2 (08:09→17:07)
[2020-07-13] MEDS: MULTIVITAMINS WITH MINERALS, THERAPEUTIC TABLET PO SCH (08:09)
[2020-07-13] MEDS: FAMOTIDINE 20 MG TABLET PO SCH (08:10)
[2020-07-13] MEDS: CITALOPRAM HYDROBROMIDE 20 MG TABLET PO SCH (08:10)
[2020-07-13] MEDS: INSULIN GLARGINE,HUM.REC.ANLOG 100 UNITS/ML SQ SCH ×2 (08:39→21:00)
[2020-07-13 11:08] LABS: GLUCOMETER DEV NAME(LOC) 3E.C; GLUCOSE,POINT OF CARE 213 MG/DL (70-110)
[2020-07-13 13:45] LABS: COVID AG,FIA SOURCE NASOPHARYNGEAL
[2020-07-13 16:02] VITALS: BP 126/76
[2020-07-13 17:16] LABS: GLUCOMETER DEV NAME(LOC) 3E.C; GLUCOSE,POINT OF CARE 203 MG/DL (70-110)
[2020-07-13 21:48] LABS: GLUCOMETER DEV NAME(LOC) 3E.C; GLUCOSE,POINT OF CARE 124 MG/DL (70-110)
[2020-07-13 21:48] LABS: GLUCOMETER DEV NAME(LOC) 3E.C; GLUCOSE,POINT OF CARE 57 MG/DL (70-110)
[2020-07-14] MEDS: INSULIN LISPRO 100 UNITS/ML SQ PRN ×3 (07:02→16:55)
[2020-07-14 07:13] LABS: GLUCOMETER DEV NAME(LOC) 3E.C; GLUCOSE,POINT OF CARE 178 MG/DL (70-110)
[2020-07-14] MEDS: MetFORMIN HCL 500 MG TABLET PO SCH ×2 (07:20→17:27)
[2020-07-14 08:06] VITALS: BP 152/86
[2020-07-14] MEDS: CITALOPRAM HYDROBROMIDE 20 MG TABLET PO SCH (08:06)
[2020-07-14] MEDS: MULTIVITAMINS WITH MINERALS, THERAPEUTIC TABLET PO SCH (08:07)
[2020-07-14] MEDS: FAMOTIDINE 20 MG TABLET PO SCH (08:07)
[2020-07-14] MEDS: ASPIRIN 81 MG CHEWABLE TABLET PO SCH (08:07)
[2020-07-14] MEDS: BENZTROPINE MESYLATE 1 MG TABLET PO SCH ×2 (08:07→16:11)
[2020-07-14] MEDS: RisperiDONE 2 MG TABLET PO SCH ×2 (08:07→16:11)
[2020-07-14] MEDS: ATENOLOL 25 MG TABLET PO SCH (08:07)
[2020-07-14] MEDS: INSULIN GLARGINE,HUM.REC.ANLOG 100 UNITS/ML SQ SCH ×2 (08:33→20:33)
[2020-07-14 08:42] LABS: GLUCOMETER DEV NAME(LOC) 3E.C; GLUCOSE,POINT OF CARE 123 MG/DL (70-110)
[2020-07-14 10:40] VITALS: BP 159/79
[2020-07-14 11:32] LABS: GLUCOMETER DEV NAME(LOC) 3E.C; GLUCOSE,POINT OF CARE 131 MG/DL (70-110)
[2020-07-14 16:20] LABS: GLUCOMETER DEV NAME(LOC) 3E.C; GLUCOSE,POINT OF CARE 146 MG/DL (70-110)
[2020-07-14 18:53] VITALS: BP 144/72
[2020-07-14] MEDS: HALOPERIDOL 5 MG TABLET PO PRN ×2 (19:32→23:42)
[2020-07-14 20:17] LABS: GLUCOMETER DEV NAME(LOC) 3E.C; GLUCOSE,POINT OF CARE 113 MG/DL (70-110)
[2020-07-15] MEDS: MetFORMIN HCL 500 MG TABLET PO SCH (06:47)
[2020-07-15] MEDS: INSULIN LISPRO 100 UNITS/ML SQ PRN (06:53)
[2020-07-15 07:07] LABS: GLUCOMETER DEV NAME(LOC) 3E.C; GLUCOSE,POINT OF CARE 254 MG/DL (70-110)
[2020-07-15] MEDS ORDERED: BENZ1TAB10 PO (07:55)
[2020-07-15] MEDS ORDERED: CITA-144 PO (07:56)
[2020-07-15] MEDS ORDERED: RISP2TAB45 PO (07:57)
[2020-07-15 08:00] VITALS: BP 137/81
[2020-07-15] MEDS: RisperiDONE 2 MG TABLET PO SCH (08:00)
[2020-07-15] MEDS: ATENOLOL 25 MG TABLET PO SCH (08:00)
[2020-07-15] MEDS: BENZTROPINE MESYLATE 1 MG TABLET PO SCH (08:00)
[2020-07-15] MEDS: ASPIRIN 81 MG CHEWABLE TABLET PO SCH (08:00)
[2020-07-15] MEDS: MULTIVITAMINS WITH MINERALS, THERAPEUTIC TABLET PO SCH (08:00)
[2020-07-15] MEDS ORDERED: ATEN-73 PO (08:01)
[2020-07-15] MEDS ORDERED: FAMO20 PO (08:01)
[2020-07-15] MEDS: CITALOPRAM HYDROBROMIDE 20 MG TABLET PO SCH (08:01)
[2020-07-15] MEDS ORDERED: INSLAN SQ ×2 (08:04→08:07)
[2020-07-15] MEDS: FAMOTIDINE 20 MG TABLET PO SCH (08:05)
[2020-07-15] MEDS: INSULIN GLARGINE,HUM.REC.ANLOG 100 UNITS/ML SQ SCH (08:07)
[2020-07-15] MEDS ORDERED: MULT-1239 PO (08:09)
== END 2020-07-15 11:00 | disposition home or self-care (01) | DRG 750 ==
LOC: 3EC 06-02 16:48
PROVIDERS: ADMIT Psychiatry & Neurology Psychiatry; ATTEND Psychiatry & Neurology Psychiatry
DX: F20.0 Paranoid schizophrenia (principal); Z20.822 Contact with and (suspected) exposure to COVID-19; I10 Essential (primary) hypertension; E11.9 Type 2 diabetes mellitus without complications; F32.9 Major depressive disorder, single episode, unspecified; F41.9 Anxiety disorder, unspecified; K59.00 Constipation, unspecified; F19.10 Other psychoactive substance abuse, uncomplicated; G47.00 Insomnia, unspecified; Z72.0 Tobacco use
CPT/HCPCS: 70450; 83036; 83735; 84100; 84443; 85007; 87086; 87426; J1200; J1630; J1815; J2060; J2794

== ENCOUNTER 2020-08-29 12:44 | Inpatient (IN) | payer MEDICARE, MEDICAID ==
[~2020-08-29] VITALS: Ht 152.4 cm; Wt 52.0 kg
[~2020-08-29 12:44] MED LIST changes: +ASPI-1444 PO; -ASPI-556 PO; +ATEN-73 PO; +CITA-144 PO; +DOCU-350 PO; -GLYB5 PO; +INSU100I26 SQ; -LISI-660 PO; +LOSA25TA21 PO; -QUET100T33 PO; +RISP2TAB45 PO
[2020-08-29 17:10] VITALS: BP 137/64
[2020-08-29] MEDS ORDERED: ZOLPIDEM TARTRATE 10 MG TABLET PO PRN (18:45)
[2020-08-29] MEDS: BENZTROPINE MESYLATE 1 MG TABLET PO SCH (20:29)
[2020-08-29] MEDS: RisperiDONE 2 MG TABLET PO SCH (20:29)
[2020-08-29] MEDS ORDERED: DEXTROSE 50%-WATER 25 GM/50 ML SYRINGE IVP PRN (21:00)
[2020-08-29] MEDS ORDERED: INSULIN LISPRO 100 UNITS/ML SQ PRN (21:00)
[2020-08-29] MEDS: INSULIN GLARGINE,HUM.REC.ANLOG 100 UNITS/ML SQ SCH (21:00)
[2020-08-30] MEDS ORDERED: PETROLATUM,WHITE 28 GM JELLY TP PRN (08:00)
[2020-08-30] MEDS ORDERED: LOPERAMIDE HCL 2 MG CAPSULE PO PRN (08:00)
[2020-08-30] MEDS ORDERED: MAG HYDROX/AL HYDROX/SIMETH ES 30 ML SUSPENSION UDCUP PO PRN (08:00)
[2020-08-30] MEDS ORDERED: CloNIDine HCL 0.1 MG TABLET PO PRN (08:00)
[2020-08-30] MEDS ORDERED: BENZOCAINE/MENTHOL LOZENGE PO PRN (08:00)
[2020-08-30] MEDS ORDERED: DOCUSATE SODIUM 100 MG CAPSULE PO PRN (08:00)
[2020-08-30] MEDS ORDERED: ALBUTEROL SULFATE HFA 90 MCG/PUFF 8 GM INHALER IH PRN (08:00)
[2020-08-30] MEDS ORDERED: MAGNESIUM HYDROXIDE SUSPENSION 30 ML UDCUP PO PRN (08:00)
[2020-08-30] MEDS ORDERED: OMEPRAZOLE 20 MG CAPSULE PO PRN (08:00)
[2020-08-30] MEDS ORDERED: FLUCONAZOLE 150 MG TABLET PO ONE (08:00)
[2020-08-30] MEDS ORDERED: BACITRACIN 28 GM OINTMENT TP PRN (08:00)
[2020-08-30] MEDS ORDERED: ONDANSETRON HCL 4 MG TABLET PO PRN (08:00)
[2020-08-30] MEDS: BENZTROPINE MESYLATE 1 MG TABLET PO SCH ×3 (08:41→16:21)
[2020-08-30] MEDS: RisperiDONE 2 MG TABLET PO SCH ×3 (08:41→16:21)
[2020-08-30] MEDS: ASPIRIN 81 MG CHEWABLE TABLET PO SCH ×2 (08:41→09:00)
[2020-08-30] MEDS: DOCUSATE SODIUM 250 MG CAPSULE PO SCH (08:41)
[2020-08-30] MEDS: ATORVASTATIN CALCIUM 20 MG TABLET PO SCH ×2 (08:42→09:00)
[2020-08-30] MEDS: ATENOLOL 25 MG TABLET PO SCH ×2 (08:42→09:00)
[2020-08-30] MEDS: LOSARTAN POTASSIUM 25 MG TABLET PO SCH ×2 (08:43→09:00)
[2020-08-30 08:50] VITALS: BP 130/74
[2020-08-30 12:35] LABS: GLUCOMETER DEV NAME(LOC) 3EX.; GLUCOSE,POINT OF CARE 471 MG/DL (70-110)
[2020-08-30] MEDS: INSULIN LISPRO 100 UNITS/ML SQ PRN ×3 (12:41→21:04)
[2020-08-30 16:27] VITALS: BP 128/77
[2020-08-30 16:48] LABS: GLUCOMETER DEV NAME(LOC) 3EX.; GLUCOSE,POINT OF CARE 245 MG/DL (70-110)
[2020-08-30] MEDS: INSULIN GLARGINE,HUM.REC.ANLOG 100 UNITS/ML SQ SCH (21:03)
[2020-08-30 21:45] LABS: GLUCOMETER DEV NAME(LOC) 3E.I 2; GLUCOSE,POINT OF CARE 172 MG/DL (70-110)
[2020-08-31 05:51] LABS: GLUCOMETER DEV NAME(LOC) 3E.I 2; GLUCOSE,POINT OF CARE 319 MG/DL (70-110)
[2020-08-31] MEDS: GlipiZIDE 10 MG TABLET PO SCH ×2 (06:41→16:35)
[2020-08-31] MEDS: INSULIN LISPRO 100 UNITS/ML SQ PRN ×4 (06:51→20:41)
[2020-08-31 08:00] VITALS: BP 139/83
[2020-08-31] MEDS: DOCUSATE SODIUM 250 MG CAPSULE PO SCH (10:23)
[2020-08-31] MEDS: RisperiDONE 2 MG TABLET PO SCH ×2 (10:23→16:35)
[2020-08-31] MEDS: ATORVASTATIN CALCIUM 20 MG TABLET PO SCH (10:23)
[2020-08-31] MEDS: MULTIVITAMINS WITH MINERALS, THERAPEUTIC TABLET PO SCH (10:23)
[2020-08-31] MEDS: ASPIRIN 81 MG CHEWABLE TABLET PO SCH (10:23)
[2020-08-31] MEDS: BENZTROPINE MESYLATE 1 MG TABLET PO SCH ×2 (10:24→16:35)
[2020-08-31] MEDS: LOSARTAN POTASSIUM 25 MG TABLET PO SCH (10:24)
[2020-08-31] MEDS: ATENOLOL 25 MG TABLET PO SCH (10:24)
[2020-08-31] MEDS: INSULIN GLARGINE,HUM.REC.ANLOG 100 UNITS/ML SQ SCH ×2 (10:29→20:39)
[2020-08-31 11:28] LABS: GLUCOMETER DEV NAME(LOC) 3E.I 2; GLUCOSE,POINT OF CARE 243 MG/DL (70-110)
[2020-08-31 16:57] LABS: GLUCOMETER DEV NAME(LOC) 3E.I 2; GLUCOSE,POINT OF CARE 303 MG/DL (70-110)
[2020-08-31 20:47] LABS: GLUCOMETER DEV NAME(LOC) 3E.I 2; GLUCOSE,POINT OF CARE 212 MG/DL (70-110)
[2020-09-01 03:16] VITALS: BP 136/75
[2020-09-01] MEDS: ACETAMINOPHEN 325 MG TABLET PO PRN (03:40)
[2020-09-01 05:47] LABS: GLUCOMETER DEV NAME(LOC) 3E.I 2; GLUCOSE,POINT OF CARE 254 MG/DL (70-110)
[2020-09-01] MEDS: INSULIN LISPRO 100 UNITS/ML SQ PRN ×3 (06:48→22:10)
[2020-09-01] MEDS: GlipiZIDE 10 MG TABLET PO SCH ×2 (06:49→16:44)
[2020-09-01 08:45] VITALS: BP 143/84
[2020-09-01] MEDS: RisperiDONE 2 MG TABLET PO SCH ×2 (08:50→16:44)
[2020-09-01] MEDS: ASPIRIN 81 MG CHEWABLE TABLET PO SCH (08:50)
[2020-09-01] MEDS: ATORVASTATIN CALCIUM 20 MG TABLET PO SCH (08:50)
[2020-09-01] MEDS: MULTIVITAMINS WITH MINERALS, THERAPEUTIC TABLET PO SCH (08:50)
[2020-09-01] MEDS: BENZTROPINE MESYLATE 1 MG TABLET PO SCH ×2 (08:50→16:44)
[2020-09-01] MEDS: ATENOLOL 25 MG TABLET PO SCH (08:50)
[2020-09-01] MEDS: DOCUSATE SODIUM 250 MG CAPSULE PO SCH (08:51)
[2020-09-01] MEDS: LOSARTAN POTASSIUM 25 MG TABLET PO SCH (08:51)
[2020-09-01] MEDS: INSULIN GLARGINE,HUM.REC.ANLOG 100 UNITS/ML SQ SCH ×2 (09:10→21:31)
[2020-09-01 11:23] LABS: GLUCOMETER DEV NAME(LOC) 3E.I 2; GLUCOSE,POINT OF CARE 100 MG/DL (70-110)
[2020-09-01 16:00] VITALS: BP 144/81
[2020-09-01 16:36] LABS: GLUCOMETER DEV NAME(LOC) 3E.I 2; GLUCOSE,POINT OF CARE 222 MG/DL (70-110)
[2020-09-01 21:40] LABS: GLUCOMETER DEV NAME(LOC) 3E.I 2; GLUCOSE,POINT OF CARE 238 MG/DL (70-110)
[2020-09-02 06:18] LABS: GLUCOMETER DEV NAME(LOC) 3E.I 2; GLUCOSE,POINT OF CARE 170 MG/DL (70-110)
[2020-09-02] MEDS: GlipiZIDE 10 MG TABLET PO SCH ×2 (06:44→16:29)
[2020-09-02] MEDS: INSULIN LISPRO 100 UNITS/ML SQ PRN ×4 (06:46→20:32)
[2020-09-02 08:12] VITALS: BP 120/57
[2020-09-02] MEDS: ASPIRIN 81 MG CHEWABLE TABLET PO SCH (08:36)
[2020-09-02] MEDS: ATENOLOL 25 MG TABLET PO SCH (08:36)
[2020-09-02] MEDS: DOCUSATE SODIUM 250 MG CAPSULE PO SCH (08:36)
[2020-09-02] MEDS: MULTIVITAMINS WITH MINERALS, THERAPEUTIC TABLET PO SCH (08:36)
[2020-09-02] MEDS: ATORVASTATIN CALCIUM 20 MG TABLET PO SCH (08:36)
[2020-09-02] MEDS: LOSARTAN POTASSIUM 25 MG TABLET PO SCH (08:36)
[2020-09-02] MEDS: RisperiDONE 2 MG TABLET PO SCH ×2 (08:36→16:29)
[2020-09-02] MEDS: HALOPERIDOL 5 MG TABLET PO PRN (08:37)
[2020-09-02] MEDS: BENZTROPINE MESYLATE 1 MG TABLET PO SCH ×2 (08:39→16:29)
[2020-09-02] MEDS: INSULIN GLARGINE,HUM.REC.ANLOG 100 UNITS/ML SQ SCH ×2 (09:02→20:33)
[2020-09-02 11:19] LABS: GLUCOMETER DEV NAME(LOC) 3E.I 2; GLUCOSE,POINT OF CARE 178 MG/DL (70-110)
[2020-09-02 16:26] VITALS: BP 148/93
[2020-09-02 16:43] LABS: GLUCOMETER DEV NAME(LOC) 3E.I 2; GLUCOSE,POINT OF CARE 297 MG/DL (70-110)
[2020-09-02 20:42] LABS: GLUCOMETER DEV NAME(LOC) 3E.I 2; GLUCOSE,POINT OF CARE 201 MG/DL (70-110)
[2020-09-03 00:12] VITALS: BP 140/77
[2020-09-03] MEDS: INSULIN LISPRO 100 UNITS/ML SQ PRN ×2 (06:17→16:39)
[2020-09-03 06:36] LABS: GLUCOMETER DEV NAME(LOC) 3E.I 2; GLUCOSE,POINT OF CARE 285 MG/DL (70-110)
[2020-09-03] MEDS: GlipiZIDE 10 MG TABLET PO SCH ×2 (07:00→16:35)
[2020-09-03] MEDS: ATORVASTATIN CALCIUM 20 MG TABLET PO SCH (09:00)
[2020-09-03] MEDS: DOCUSATE SODIUM 250 MG CAPSULE PO SCH (09:00)
[2020-09-03] MEDS: BENZTROPINE MESYLATE 1 MG TABLET PO SCH ×2 (09:00→16:35)
[2020-09-03] MEDS: RisperiDONE 2 MG TABLET PO SCH ×2 (09:00→16:35)
[2020-09-03] MEDS: ATENOLOL 25 MG TABLET PO SCH (09:00)
[2020-09-03] MEDS: INSULIN GLARGINE,HUM.REC.ANLOG 100 UNITS/ML SQ SCH ×2 (09:00→21:00)
[2020-09-03] MEDS: ASPIRIN 81 MG CHEWABLE TABLET PO SCH (09:00)
[2020-09-03] MEDS: MULTIVITAMINS WITH MINERALS, THERAPEUTIC TABLET PO SCH (09:00)
[2020-09-03] MEDS: LOSARTAN POTASSIUM 25 MG TABLET PO SCH (09:00)
[2020-09-03 16:34] LABS: GLUCOMETER DEV NAME(LOC) 3E.I 2; GLUCOSE,POINT OF CARE 353 MG/DL (70-110)
[2020-09-03] MEDS: LORazepam 2 MG TABLET PO PRN (16:41)
[2020-09-03] MEDS: HALOPERIDOL 5 MG TABLET PO PRN (16:41)
[2020-09-03 18:23] VITALS: BP 136/89
[2020-09-03] MEDS: ACETAMINOPHEN 325 MG TABLET PO PRN (18:23)
[2020-09-03 21:28] LABS: GLUCOMETER DEV NAME(LOC) 3E.I 2; GLUCOSE,POINT OF CARE 109 MG/DL (70-110)
[2020-09-04 05:25] LABS: GLUCOMETER DEV NAME(LOC) 3E.I 2; GLUCOSE,POINT OF CARE 111 MG/DL (70-110)
[2020-09-04] MEDS: GlipiZIDE 10 MG TABLET PO SCH ×2 (06:41→16:36)
[2020-09-04] MEDS: INSULIN GLARGINE,HUM.REC.ANLOG 100 UNITS/ML SQ SCH ×2 (09:00→21:17)
[2020-09-04] MEDS: MULTIVITAMINS WITH MINERALS, THERAPEUTIC TABLET PO SCH ×2 (09:08→09:40)
[2020-09-04] MEDS: DOCUSATE SODIUM 250 MG CAPSULE PO SCH ×2 (09:08→09:40)
[2020-09-04] MEDS: LORazepam 2 MG TABLET PO PRN ×3 (09:11→16:37)
[2020-09-04] MEDS: HALOPERIDOL 5 MG TABLET PO PRN ×3 (09:11→16:37)
[2020-09-04] MEDS: ATORVASTATIN CALCIUM 20 MG TABLET PO SCH (09:40)
[2020-09-04] MEDS: ATENOLOL 25 MG TABLET PO SCH (09:40)
[2020-09-04] MEDS: LOSARTAN POTASSIUM 25 MG TABLET PO SCH (09:40)
[2020-09-04] MEDS: ASPIRIN 81 MG CHEWABLE TABLET PO SCH (09:40)
[2020-09-04] MEDS: RisperiDONE 2 MG TABLET PO SCH ×2 (09:40→16:36)
[2020-09-04] MEDS: BENZTROPINE MESYLATE 1 MG TABLET PO SCH ×2 (09:40→16:36)
[2020-09-04 12:23] VITALS: BP 133/75
[2020-09-04 16:02] VITALS: BP 131/81
[2020-09-04] MEDS: INSULIN LISPRO 100 UNITS/ML SQ PRN ×2 (16:34→21:17)
[2020-09-04 16:46] LABS: GLUCOMETER DEV NAME(LOC) 3E.I 2; GLUCOSE,POINT OF CARE 335 MG/DL (70-110)
[2020-09-04 17:41] LABS: COVID AG,FIA SOURCE NASAL SWAB
[2020-09-04 21:24] LABS: GLUCOMETER DEV NAME(LOC) 3E.I 2; GLUCOSE,POINT OF CARE 273 MG/DL (70-110)
[2020-09-05 05:28] LABS: GLUCOMETER DEV NAME(LOC) 3E.I 2; GLUCOSE,POINT OF CARE 224 MG/DL (70-110)
[2020-09-05 06:06] VITALS: BP 83/77
[2020-09-05] MEDS: GlipiZIDE 10 MG TABLET PO SCH ×2 (06:37→17:11)
[2020-09-05] MEDS: INSULIN LISPRO 100 UNITS/ML SQ PRN ×4 (06:38→21:37)
[2020-09-05 08:09] VITALS: BP 131/70
[2020-09-05] MEDS: LOSARTAN POTASSIUM 25 MG TABLET PO SCH (09:07)
[2020-09-05] MEDS: ASPIRIN 81 MG CHEWABLE TABLET PO SCH (09:08)
[2020-09-05] MEDS: ATORVASTATIN CALCIUM 20 MG TABLET PO SCH (09:08)
[2020-09-05] MEDS: BENZTROPINE MESYLATE 1 MG TABLET PO SCH ×2 (09:08→17:11)
[2020-09-05] MEDS: ATENOLOL 25 MG TABLET PO SCH (09:08)
[2020-09-05] MEDS: RisperiDONE 2 MG TABLET PO SCH ×2 (09:08→17:12)
[2020-09-05] MEDS: INSULIN GLARGINE,HUM.REC.ANLOG 100 UNITS/ML SQ SCH ×2 (09:59→21:37)
[2020-09-05 11:15] LABS: GLUCOMETER DEV NAME(LOC) 3E.I 2; GLUCOSE,POINT OF CARE 234 MG/DL (70-110)
[2020-09-05 17:33] LABS: GLUCOMETER DEV NAME(LOC) 3E.I 2; GLUCOSE,POINT OF CARE 398 MG/DL (70-110)
[2020-09-05 18:32] VITALS: BP 149/90
[2020-09-05 21:13] LABS: GLUCOMETER DEV NAME(LOC) 3E.I 2; GLUCOSE,POINT OF CARE 138 MG/DL (70-110)
[2020-09-06 00:05] VITALS: BP 134/86
[2020-09-06 05:42] LABS: GLUCOMETER DEV NAME(LOC) 3E.I 2; GLUCOSE,POINT OF CARE 317 MG/DL (70-110)
[2020-09-06] MEDS: GlipiZIDE 10 MG TABLET PO SCH ×2 (06:37→16:36)
[2020-09-06] MEDS: INSULIN LISPRO 100 UNITS/ML SQ PRN ×4 (06:58→21:23)
[2020-09-06 08:30] VITALS: BP 130/67
[2020-09-06] MEDS: BENZTROPINE MESYLATE 1 MG TABLET PO SCH ×2 (09:37→16:36)
[2020-09-06] MEDS: RisperiDONE 2 MG TABLET PO SCH ×2 (09:37→16:36)
[2020-09-06] MEDS: ATORVASTATIN CALCIUM 20 MG TABLET PO SCH (09:37)
[2020-09-06] MEDS: ASPIRIN 81 MG CHEWABLE TABLET PO SCH (09:37)
[2020-09-06] MEDS: MULTIVITAMINS WITH MINERALS, THERAPEUTIC TABLET PO SCH (09:37)
[2020-09-06] MEDS: ATENOLOL 25 MG TABLET PO SCH (09:38)
[2020-09-06] MEDS: DOCUSATE SODIUM 250 MG CAPSULE PO SCH (09:38)
[2020-09-06] MEDS: LOSARTAN POTASSIUM 25 MG TABLET PO SCH (09:39)
[2020-09-06] MEDS: INSULIN GLARGINE,HUM.REC.ANLOG 100 UNITS/ML SQ SCH ×2 (09:44→21:22)
[2020-09-06 11:25] LABS: APPEARANCE,URINE CLEAR (CLEAR); BILIRUBIN,URINE NEGATIVE (NEGATIVE); GLUCOSE, URINE (UA) 100 mg/dL (NEGATIVE); KETONES,URINE NEGATIVE (NEGATIVE); LEUKOCYTE ESTERASE ,URINE NEGATIVE (NEGATIVE); NITRATE,URINE NEGATIVE (NEGATIVE); PROTEIN,URINE NEGATIVE (NEGATIVE); UROBILINOGEN,URINE 0.2 mg/dL (<=1.0)
[2020-09-06 11:42] LABS: BACTERIA,URINE None Seen /HPF (None Seen); OCCULT BLOOD,URINE MODERATE (NEGATIVE); RBC,URINE 0-2 /HPF (0-2); SQUAMOUS EPITHELIAL CELL,UR Few /LPF (None Seen)
[2020-09-06 11:56] LABS: GLUCOMETER DEV NAME(LOC) 3E.I 2; GLUCOSE,POINT OF CARE 282 MG/DL (70-110)
[2020-09-06 15:43] VITALS: BP 131/64
[2020-09-06 16:00] VITALS: BP 131/64
[2020-09-06 17:12] LABS: GLUCOMETER DEV NAME(LOC) 3E.I 2; GLUCOSE,POINT OF CARE 350 MG/DL (70-110)
[2020-09-06 21:02] LABS: GLUCOMETER DEV NAME(LOC) 3E.I 2; GLUCOSE,POINT OF CARE 227 MG/DL (70-110)
[2020-09-07 06:28] LABS: GLUCOMETER DEV NAME(LOC) 3E.I 2; GLUCOSE,POINT OF CARE 236 MG/DL (70-110)
[2020-09-07] MEDS: GlipiZIDE 10 MG TABLET PO SCH ×2 (07:01→16:01)
[2020-09-07] MEDS: ACETAMINOPHEN 325 MG TABLET PO PRN (07:01)
[2020-09-07 07:02] VITALS: BP 123/74
[2020-09-07] MEDS: INSULIN LISPRO 100 UNITS/ML SQ PRN ×4 (07:10→21:42)
[2020-09-07] MEDS: DOCUSATE SODIUM 250 MG CAPSULE PO SCH (08:12)
[2020-09-07] MEDS: ASPIRIN 81 MG CHEWABLE TABLET PO SCH (08:12)
[2020-09-07] MEDS: ATENOLOL 25 MG TABLET PO SCH (08:12)
[2020-09-07] MEDS: MULTIVITAMINS WITH MINERALS, THERAPEUTIC TABLET PO SCH (08:12)
[2020-09-07] MEDS: RisperiDONE 2 MG TABLET PO SCH ×2 (08:12→16:01)
[2020-09-07] MEDS: ATORVASTATIN CALCIUM 20 MG TABLET PO SCH (08:12)
[2020-09-07] MEDS: LOSARTAN POTASSIUM 25 MG TABLET PO SCH (08:12)
[2020-09-07] MEDS: BENZTROPINE MESYLATE 1 MG TABLET PO SCH ×2 (08:12→16:01)
[2020-09-07] MEDS: INSULIN GLARGINE,HUM.REC.ANLOG 100 UNITS/ML SQ SCH ×2 (08:17→21:41)
[2020-09-07 08:39] VITALS: BP 144/55
[2020-09-07 11:37] LABS: GLUCOMETER DEV NAME(LOC) 3E.I 2; GLUCOSE,POINT OF CARE 275 MG/DL (70-110)
[2020-09-07] MEDS: LORazepam 2 MG TABLET PO PRN (15:58)
[2020-09-07 16:00] VITALS: BP 152/79
[2020-09-07 17:02] LABS: GLUCOMETER DEV NAME(LOC) 3E.I 2; GLUCOSE,POINT OF CARE 400 MG/DL (70-110)
[2020-09-07 20:43] LABS: GLUCOMETER DEV NAME(LOC) 3E.I 2; GLUCOSE,POINT OF CARE 120 MG/DL (70-110)
[2020-09-08 05:33] LABS: GLUCOMETER DEV NAME(LOC) 3E.I 2; GLUCOSE,POINT OF CARE 225 MG/DL (70-110)
[2020-09-08 06:01] VITALS: BP 106/65
[2020-09-08] MEDS: GlipiZIDE 10 MG TABLET PO SCH ×2 (06:36→17:05)
[2020-09-08] MEDS: INSULIN LISPRO 100 UNITS/ML SQ PRN ×3 (06:37→21:17)
[2020-09-08 08:14] VITALS: BP 118/92
[2020-09-08] MEDS: INSULIN GLARGINE,HUM.REC.ANLOG 100 UNITS/ML SQ SCH ×2 (09:00→21:15)
[2020-09-08] MEDS: BENZTROPINE MESYLATE 1 MG TABLET PO SCH ×2 (09:07→17:05)
[2020-09-08] MEDS: DOCUSATE SODIUM 250 MG CAPSULE PO SCH (09:07)
[2020-09-08] MEDS: MULTIVITAMINS WITH MINERALS, THERAPEUTIC TABLET PO SCH (09:07)
[2020-09-08] MEDS: RisperiDONE 2 MG TABLET PO SCH ×2 (09:07→17:05)
[2020-09-08] MEDS: ASPIRIN 81 MG CHEWABLE TABLET PO SCH (09:08)
[2020-09-08] MEDS: LOSARTAN POTASSIUM 25 MG TABLET PO SCH (09:08)
[2020-09-08] MEDS: ATORVASTATIN CALCIUM 20 MG TABLET PO SCH (09:39)
[2020-09-08] MEDS: ATENOLOL 25 MG TABLET PO SCH (09:39)
[2020-09-08 16:08] VITALS: BP 140/78
[2020-09-08 16:21] LABS: GLUCOMETER DEV NAME(LOC) 3E.I 2; GLUCOSE,POINT OF CARE 313 MG/DL (70-110)
[2020-09-08] MEDS: HALOPERIDOL 5 MG TABLET PO PRN (17:05)
[2020-09-08 21:13] LABS: GLUCOMETER DEV NAME(LOC) 3E.I 2; GLUCOSE,POINT OF CARE 231 MG/DL (70-110)
[2020-09-09] MEDS: IBUPROFEN 600 MG TABLET PO PRN (01:37)
[2020-09-09 01:40] VITALS: BP 150/90
[2020-09-09 06:04] LABS: GLUCOMETER DEV NAME(LOC) 3E.I 2; GLUCOSE,POINT OF CARE 306 MG/DL (70-110)
[2020-09-09] MEDS: INSULIN LISPRO 100 UNITS/ML SQ PRN ×4 (07:18→21:17)
[2020-09-09] MEDS: GlipiZIDE 10 MG TABLET PO SCH ×2 (07:18→16:48)
[2020-09-09] MEDS: LOSARTAN POTASSIUM 25 MG TABLET PO SCH (08:54)
[2020-09-09] MEDS: ATORVASTATIN CALCIUM 20 MG TABLET PO SCH (08:54)
[2020-09-09] MEDS: ATENOLOL 25 MG TABLET PO SCH (08:55)
[2020-09-09] MEDS: BENZTROPINE MESYLATE 1 MG TABLET PO SCH ×2 (08:57→16:49)
[2020-09-09] MEDS: MULTIVITAMINS WITH MINERALS, THERAPEUTIC TABLET PO SCH (08:57)
[2020-09-09] MEDS: RisperiDONE 2 MG TABLET PO SCH ×2 (08:58→16:49)
[2020-09-09] MEDS: DOCUSATE SODIUM 250 MG CAPSULE PO SCH (08:58)
[2020-09-09] MEDS: ASPIRIN 81 MG CHEWABLE TABLET PO SCH (08:58)
[2020-09-09] MEDS: INSULIN GLARGINE,HUM.REC.ANLOG 100 UNITS/ML SQ SCH ×2 (09:18→21:00)
[2020-09-09 09:22] LABS: GLUCOMETER DEV NAME(LOC) 3EX.; GLUCOSE,POINT OF CARE 327 MG/DL (70-110)
[2020-09-09 09:37] VITALS: BP 119/86
[2020-09-09] MEDS: AMOX TR/POT CLAV 500 MG/125 MG TABLET PO SCH ×2 (11:12→21:00)
[2020-09-09 12:26] LABS: GLUCOMETER DEV NAME(LOC) 3E.I 2; GLUCOSE,POINT OF CARE 215 MG/DL (70-110)
[2020-09-09 16:41] LABS: GLUCOMETER DEV NAME(LOC) 3E.I 2; GLUCOSE,POINT OF CARE 295 MG/DL (70-110)
[2020-09-09] MEDS: HALOPERIDOL 5 MG TABLET PO PRN (16:49)
[2020-09-09 16:59] VITALS: BP 141/59
[2020-09-09 21:20] LABS: GLUCOMETER DEV NAME(LOC) 3E.I 2; GLUCOSE,POINT OF CARE 147 MG/DL (70-110)
[2020-09-10 05:16] VITALS: BP 113/60
[2020-09-10 05:40] LABS: GLUCOMETER DEV NAME(LOC) 3E.I 2; GLUCOSE,POINT OF CARE 108 MG/DL (70-110)
[2020-09-10] MEDS: INSULIN LISPRO 100 UNITS/ML SQ PRN ×4 (07:05→21:24)
[2020-09-10] MEDS: GlipiZIDE 10 MG TABLET PO SCH ×2 (07:06→16:27)
[2020-09-10] MEDS: ATORVASTATIN CALCIUM 20 MG TABLET PO SCH (09:00)
[2020-09-10] MEDS: DOCUSATE SODIUM 250 MG CAPSULE PO SCH (09:00)
[2020-09-10] MEDS: ASPIRIN 81 MG CHEWABLE TABLET PO SCH (09:00)
[2020-09-10] MEDS: BENZTROPINE MESYLATE 1 MG TABLET PO SCH ×2 (09:00→16:28)
[2020-09-10] MEDS: AMOX TR/POT CLAV 500 MG/125 MG TABLET PO SCH ×2 (09:50→21:23)
[2020-09-10] MEDS: ATENOLOL 25 MG TABLET PO SCH (09:50)
[2020-09-10] MEDS: LOSARTAN POTASSIUM 25 MG TABLET PO SCH (09:50)
[2020-09-10] MEDS: RisperiDONE 2 MG TABLET PO SCH ×2 (09:50→16:28)
[2020-09-10] MEDS: MULTIVITAMINS WITH MINERALS, THERAPEUTIC TABLET PO SCH (09:50)
[2020-09-10] MEDS: INSULIN GLARGINE,HUM.REC.ANLOG 100 UNITS/ML SQ SCH ×2 (09:50→21:24)
[2020-09-10 11:58] LABS: GLUCOMETER DEV NAME(LOC) 3E.I 2; GLUCOSE,POINT OF CARE 312 MG/DL (70-110)
[2020-09-10 16:03] VITALS: BP 123/77
[2020-09-10] MEDS: HALOPERIDOL 5 MG TABLET PO PRN (16:28)
[2020-09-10 16:52] LABS: GLUCOMETER DEV NAME(LOC) 3E.I 2; GLUCOSE,POINT OF CARE 292 MG/DL (70-110)
[2020-09-10 21:08] LABS: GLUCOMETER DEV NAME(LOC) 3E.I 2; GLUCOSE,POINT OF CARE 258 MG/DL (70-110)
[2020-09-11 03:35] VITALS: BP 151/78
[2020-09-11] MEDS: ACETAMINOPHEN 325 MG TABLET PO PRN (03:38)
[2020-09-11 05:29] LABS: GLUCOMETER DEV NAME(LOC) 3E.I 2; GLUCOSE,POINT OF CARE 289 MG/DL (70-110)
[2020-09-11] MEDS: GlipiZIDE 10 MG TABLET PO SCH ×2 (06:42→17:08)
[2020-09-11] MEDS: INSULIN LISPRO 100 UNITS/ML SQ PRN ×4 (06:43→20:45)
[2020-09-11 08:00] VITALS: BP 101/60
[2020-09-11] MEDS: AMOX TR/POT CLAV 500 MG/125 MG TABLET PO SCH ×2 (09:27→20:29)
[2020-09-11] MEDS: DOCUSATE SODIUM 250 MG CAPSULE PO SCH (09:27)
[2020-09-11] MEDS: LOSARTAN POTASSIUM 25 MG TABLET PO SCH (09:28)
[2020-09-11] MEDS: MULTIVITAMINS WITH MINERALS, THERAPEUTIC TABLET PO SCH (09:28)
[2020-09-11] MEDS: ATENOLOL 25 MG TABLET PO SCH (09:28)
[2020-09-11] MEDS: ATORVASTATIN CALCIUM 20 MG TABLET PO SCH (09:28)
[2020-09-11] MEDS: ASPIRIN 81 MG CHEWABLE TABLET PO SCH (09:28)
[2020-09-11] MEDS: RisperiDONE 2 MG TABLET PO SCH ×2 (09:29→17:06)
[2020-09-11] MEDS: BENZTROPINE MESYLATE 1 MG TABLET PO SCH ×2 (09:29→17:06)
[2020-09-11] MEDS: INSULIN GLARGINE,HUM.REC.ANLOG 100 UNITS/ML SQ SCH ×2 (09:41→20:46)
[2020-09-11 11:53] LABS: GLUCOMETER DEV NAME(LOC) 3EX.; GLUCOSE,POINT OF CARE 171 MG/DL (70-110)
[2020-09-11 16:18] VITALS: BP 129/89
[2020-09-11 16:40] LABS: GLUCOMETER DEV NAME(LOC) 3E.I 2; GLUCOSE,POINT OF CARE 280 MG/DL (70-110)
[2020-09-11 20:52] LABS: GLUCOMETER DEV NAME(LOC) 3E.I 2; GLUCOSE,POINT OF CARE 305 MG/DL (70-110)
[2020-09-12 05:33] LABS: GLUCOMETER DEV NAME(LOC) 3E.I 2; GLUCOSE,POINT OF CARE 190 MG/DL (70-110)
[2020-09-12 05:35] VITALS: BP 141/75
[2020-09-12] MEDS: ACETAMINOPHEN 325 MG TABLET PO PRN (05:38)
[2020-09-12] MEDS: GlipiZIDE 10 MG TABLET PO SCH ×2 (06:36→16:29)
[2020-09-12] MEDS: INSULIN LISPRO 100 UNITS/ML SQ PRN ×4 (06:37→21:01)
[2020-09-12] MEDS: INSULIN GLARGINE,HUM.REC.ANLOG 100 UNITS/ML SQ SCH ×3 (09:00→21:01)
[2020-09-12] MEDS: ATENOLOL 25 MG TABLET PO SCH (09:00)
[2020-09-12] MEDS: IBUPROFEN 600 MG TABLET PO PRN (09:48)
[2020-09-12] MEDS: HALOPERIDOL 5 MG TABLET PO PRN (09:50)
[2020-09-12] MEDS: DOCUSATE SODIUM 250 MG CAPSULE PO SCH (09:50)
[2020-09-12] MEDS: BENZTROPINE MESYLATE 1 MG TABLET PO SCH ×2 (09:50→16:29)
[2020-09-12] MEDS: ASPIRIN 81 MG CHEWABLE TABLET PO SCH (09:50)
[2020-09-12] MEDS: RisperiDONE 2 MG TABLET PO SCH ×2 (09:50→16:29)
[2020-09-12] MEDS: MULTIVITAMINS WITH MINERALS, THERAPEUTIC TABLET PO SCH (09:51)
[2020-09-12] MEDS: ATORVASTATIN CALCIUM 20 MG TABLET PO SCH (09:51)
[2020-09-12] MEDS: LOSARTAN POTASSIUM 25 MG TABLET PO SCH (09:52)
[2020-09-12 11:37] LABS: GLUCOMETER DEV NAME(LOC) 3E.I 2; GLUCOSE,POINT OF CARE 224 MG/DL (70-110)
[2020-09-12 16:00] VITALS: BP 156/81
[2020-09-12 17:40] LABS: GLUCOMETER DEV NAME(LOC) 3E.I 2; GLUCOSE,POINT OF CARE 122 MG/DL (70-110)
[2020-09-12 20:48] LABS: GLUCOMETER DEV NAME(LOC) 3E.C; GLUCOSE,POINT OF CARE 244 MG/DL (70-110)
[2020-09-13 00:35] VITALS: BP 129/85
[2020-09-13] MEDS: ACETAMINOPHEN 325 MG TABLET PO PRN (00:38)
[2020-09-13 05:54] LABS: GLUCOMETER DEV NAME(LOC) 3E.C; GLUCOSE,POINT OF CARE 115 MG/DL (70-110)
[2020-09-13] MEDS: GlipiZIDE 10 MG TABLET PO SCH ×2 (06:32→16:02)
[2020-09-13] MEDS: LOSARTAN POTASSIUM 25 MG TABLET PO SCH (07:53)
[2020-09-13] MEDS: ATORVASTATIN CALCIUM 20 MG TABLET PO SCH (07:53)
[2020-09-13] MEDS: ASPIRIN 81 MG CHEWABLE TABLET PO SCH (07:54)
[2020-09-13] MEDS: RisperiDONE 2 MG TABLET PO SCH ×2 (07:54→16:02)
[2020-09-13] MEDS: MULTIVITAMINS WITH MINERALS, THERAPEUTIC TABLET PO SCH (07:55)
[2020-09-13] MEDS: ATENOLOL 25 MG TABLET PO SCH (07:55)
[2020-09-13] MEDS: BENZTROPINE MESYLATE 1 MG TABLET PO SCH ×2 (07:55→16:02)
[2020-09-13] MEDS: HALOPERIDOL 5 MG TABLET PO PRN ×2 (07:57→16:02)
[2020-09-13] MEDS: DOCUSATE SODIUM 250 MG CAPSULE PO SCH (07:57)
[2020-09-13] MEDS: LORazepam 2 MG TABLET PO PRN (07:57)
[2020-09-13 08:28] VITALS: BP 136/73
[2020-09-13] MEDS: INSULIN GLARGINE,HUM.REC.ANLOG 100 UNITS/ML SQ SCH ×2 (09:40→20:53)
[2020-09-13 11:58] LABS: GLUCOMETER DEV NAME(LOC) 3E.C; GLUCOSE,POINT OF CARE 253 MG/DL (70-110)
[2020-09-13 13:43] LABS: COVID AG,FIA SOURCE NASOPHARYNGEAL
[2020-09-13] MEDS: INSULIN LISPRO 100 UNITS/ML SQ PRN ×3 (14:03→20:52)
[2020-09-13 16:12] VITALS: BP 95/57
[2020-09-13 16:23] LABS: GLUCOMETER DEV NAME(LOC) 3E.C; GLUCOSE,POINT OF CARE 222 MG/DL (70-110)
[2020-09-13 22:03] LABS: GLUCOMETER DEV NAME(LOC) 3E.C; GLUCOSE,POINT OF CARE 277 MG/DL (70-110)
[2020-09-14 06:08] LABS: GLUCOMETER DEV NAME(LOC) 3E.C; GLUCOSE,POINT OF CARE 149 MG/DL (70-110)
[2020-09-14] MEDS: GlipiZIDE 10 MG TABLET PO SCH ×2 (06:27→16:20)
[2020-09-14] MEDS: RisperiDONE 2 MG TABLET PO SCH ×2 (08:05→16:21)
[2020-09-14] MEDS: ASPIRIN 81 MG CHEWABLE TABLET PO SCH (08:05)
[2020-09-14] MEDS: BENZTROPINE MESYLATE 1 MG TABLET PO SCH ×2 (08:05→16:20)
[2020-09-14] MEDS: MULTIVITAMINS WITH MINERALS, THERAPEUTIC TABLET PO SCH (08:05)
[2020-09-14] MEDS: ATENOLOL 25 MG TABLET PO SCH (08:05)
[2020-09-14] MEDS: LORazepam 2 MG TABLET PO PRN ×2 (08:05→08:13)
[2020-09-14] MEDS: DOCUSATE SODIUM 250 MG CAPSULE PO SCH (08:06)
[2020-09-14] MEDS: ATORVASTATIN CALCIUM 20 MG TABLET PO SCH (08:06)
[2020-09-14] MEDS: LOSARTAN POTASSIUM 25 MG TABLET PO SCH (08:06)
[2020-09-14 09:00] VITALS: BP 143/80
[2020-09-14] MEDS: INSULIN GLARGINE,HUM.REC.ANLOG 100 UNITS/ML SQ SCH ×2 (10:37→20:54)
[2020-09-14 12:10] LABS: GLUCOMETER DEV NAME(LOC) 3E.C; GLUCOSE,POINT OF CARE 257 MG/DL (70-110)
[2020-09-14] MEDS: INSULIN LISPRO 100 UNITS/ML SQ PRN ×3 (12:13→20:55)
[2020-09-14] MEDS: HALOPERIDOL 5 MG TABLET PO PRN (15:51)
[2020-09-14 16:06] VITALS: BP 132/82
[2020-09-14 16:11] LABS: GLUCOMETER DEV NAME(LOC) 3E.C; GLUCOSE,POINT OF CARE 199 MG/DL (70-110)
[2020-09-14 21:04] LABS: GLUCOMETER DEV NAME(LOC) 3E.C; GLUCOSE,POINT OF CARE 271 MG/DL (70-110)
[2020-09-15 05:35] LABS: GLUCOMETER DEV NAME(LOC) 3E.C; GLUCOSE,POINT OF CARE 239 MG/DL (70-110)
[2020-09-15] MEDS: GlipiZIDE 10 MG TABLET PO SCH ×2 (06:19→17:22)
[2020-09-15] MEDS: INSULIN LISPRO 100 UNITS/ML SQ PRN ×2 (06:39→11:43)
[2020-09-15] MEDS: ASPIRIN 81 MG CHEWABLE TABLET PO SCH (08:10)
[2020-09-15] MEDS: LOSARTAN POTASSIUM 25 MG TABLET PO SCH (08:10)
[2020-09-15] MEDS: DOCUSATE SODIUM 250 MG CAPSULE PO SCH (08:10)
[2020-09-15] MEDS: RisperiDONE 2 MG TABLET PO SCH ×2 (08:10→17:22)
[2020-09-15] MEDS: MULTIVITAMINS WITH MINERALS, THERAPEUTIC TABLET PO SCH (08:10)
[2020-09-15] MEDS: BENZTROPINE MESYLATE 1 MG TABLET PO SCH ×2 (08:10→17:23)
[2020-09-15] MEDS: ATENOLOL 25 MG TABLET PO SCH (08:10)
[2020-09-15] MEDS: ATORVASTATIN CALCIUM 20 MG TABLET PO SCH (08:10)
[2020-09-15 08:26] VITALS: BP 134/73
[2020-09-15] MEDS: HALOPERIDOL 5 MG TABLET PO PRN (08:26)
[2020-09-15] MEDS: INSULIN GLARGINE,HUM.REC.ANLOG 100 UNITS/ML SQ SCH ×2 (09:07→21:00)
[2020-09-15 11:34] LABS: GLUCOMETER DEV NAME(LOC) 3E.C; GLUCOSE,POINT OF CARE 306 MG/DL (70-110)
[2020-09-15 16:16] VITALS: BP 133/82
[2020-09-15 17:34] LABS: GLUCOMETER DEV NAME(LOC) 3E.C; GLUCOSE,POINT OF CARE 109 MG/DL (70-110)
[2020-09-15 21:45] LABS: GLUCOMETER DEV NAME(LOC) 3E.C; GLUCOSE,POINT OF CARE 112 MG/DL (70-110)
[2020-09-16 05:27] LABS: GLUCOMETER DEV NAME(LOC) 3E.C; GLUCOSE,POINT OF CARE 162 MG/DL (70-110)
[2020-09-16] MEDS: GlipiZIDE 10 MG TABLET PO SCH ×2 (06:55→16:12)
[2020-09-16] MEDS: INSULIN LISPRO 100 UNITS/ML SQ PRN ×4 (07:04→21:34)
[2020-09-16 08:53] VITALS: BP 133/82
[2020-09-16] MEDS: RisperiDONE 2 MG TABLET PO SCH ×2 (09:47→16:12)
[2020-09-16] MEDS: BENZTROPINE MESYLATE 1 MG TABLET PO SCH ×2 (09:47→16:12)
[2020-09-16] MEDS: ATENOLOL 25 MG TABLET PO SCH (09:47)
[2020-09-16] MEDS: ASPIRIN 81 MG CHEWABLE TABLET PO SCH (09:47)
[2020-09-16] MEDS: MULTIVITAMINS WITH MINERALS, THERAPEUTIC TABLET PO SCH (09:48)
[2020-09-16] MEDS: DOCUSATE SODIUM 250 MG CAPSULE PO SCH (09:48)
[2020-09-16] MEDS: ATORVASTATIN CALCIUM 20 MG TABLET PO SCH (09:48)
[2020-09-16] MEDS: LOSARTAN POTASSIUM 25 MG TABLET PO SCH (09:48)
[2020-09-16] MEDS: INSULIN GLARGINE,HUM.REC.ANLOG 100 UNITS/ML SQ SCH ×2 (09:57→21:36)
[2020-09-16 11:55] LABS: GLUCOMETER DEV NAME(LOC) 3E.C; GLUCOSE,POINT OF CARE 356 MG/DL (70-110)
[2020-09-16 16:32] VITALS: BP 129/62
[2020-09-16 16:34] VITALS: BP 129/62
[2020-09-16 17:15] LABS: GLUCOMETER DEV NAME(LOC) 3E.C; GLUCOSE,POINT OF CARE 343 MG/DL (70-110)
[2020-09-16 20:33] LABS: GLUCOMETER DEV NAME(LOC) 3E.C; GLUCOSE,POINT OF CARE 221 MG/DL (70-110)
[2020-09-17 04:00] VITALS: BP 120/66
[2020-09-17 05:37] LABS: GLUCOMETER DEV NAME(LOC) 3E.C; GLUCOSE,POINT OF CARE 173 MG/DL (70-110)
[2020-09-17] MEDS: GlipiZIDE 10 MG TABLET PO SCH ×2 (06:34→16:51)
[2020-09-17 08:00] VITALS: BP 121/74
[2020-09-17] MEDS: INSULIN GLARGINE,HUM.REC.ANLOG 100 UNITS/ML SQ SCH ×2 (09:43→20:51)
[2020-09-17] MEDS: DOCUSATE SODIUM 250 MG CAPSULE PO SCH (09:55)
[2020-09-17] MEDS: ASPIRIN 81 MG CHEWABLE TABLET PO SCH (09:56)
[2020-09-17] MEDS: ATENOLOL 25 MG TABLET PO SCH (09:56)
[2020-09-17] MEDS: BENZTROPINE MESYLATE 1 MG TABLET PO SCH ×2 (09:56→16:51)
[2020-09-17] MEDS: RisperiDONE 2 MG TABLET PO SCH ×2 (09:56→16:51)
[2020-09-17] MEDS: ATORVASTATIN CALCIUM 20 MG TABLET PO SCH (09:57)
[2020-09-17] MEDS: MULTIVITAMINS WITH MINERALS, THERAPEUTIC TABLET PO SCH (09:57)
[2020-09-17] MEDS: LOSARTAN POTASSIUM 25 MG TABLET PO SCH (09:57)
[2020-09-17] MEDS: INSULIN LISPRO 100 UNITS/ML SQ PRN ×2 (11:24→17:14)
[2020-09-17 11:32] LABS: GLUCOMETER DEV NAME(LOC) 3E.C; GLUCOSE,POINT OF CARE 282 MG/DL (70-110)
[2020-09-17 17:11] LABS: GLUCOMETER DEV NAME(LOC) 3E.C; GLUCOSE,POINT OF CARE 282 MG/DL (70-110)
[2020-09-17] MEDS: HALOPERIDOL 5 MG TABLET PO PRN ×2 (17:17→18:43)
[2020-09-17 21:06] LABS: GLUCOMETER DEV NAME(LOC) 3E.C; GLUCOSE,POINT OF CARE 117 MG/DL (70-110)
[2020-09-18 05:38] LABS: GLUCOMETER DEV NAME(LOC) 3E.C; GLUCOSE,POINT OF CARE 120 MG/DL (70-110)
[2020-09-18] MEDS: GlipiZIDE 10 MG TABLET PO SCH ×2 (07:01→16:57)
[2020-09-18] MEDS: INSULIN LISPRO 100 UNITS/ML SQ PRN ×3 (07:03→21:03)
[2020-09-18] MEDS: MULTIVITAMINS WITH MINERALS, THERAPEUTIC TABLET PO SCH ×2 (09:00→10:22)
[2020-09-18] MEDS: ASPIRIN 81 MG CHEWABLE TABLET PO SCH ×2 (09:00→10:22)
[2020-09-18] MEDS: BENZTROPINE MESYLATE 1 MG TABLET PO SCH ×3 (09:00→16:06)
[2020-09-18] MEDS: DOCUSATE SODIUM 250 MG CAPSULE PO SCH ×2 (09:00→10:22)
[2020-09-18] MEDS: ATORVASTATIN CALCIUM 20 MG TABLET PO SCH ×2 (09:00→10:24)
[2020-09-18] MEDS: ATENOLOL 25 MG TABLET PO SCH ×2 (09:00→10:23)
[2020-09-18] MEDS: RisperiDONE 2 MG TABLET PO SCH ×3 (09:00→16:06)
[2020-09-18] MEDS: LOSARTAN POTASSIUM 25 MG TABLET PO SCH ×2 (09:00→10:24)
[2020-09-18 10:01] VITALS: BP 137/84
[2020-09-18] MEDS: INSULIN GLARGINE,HUM.REC.ANLOG 100 UNITS/ML SQ SCH ×2 (11:12→21:02)
[2020-09-18 11:18] LABS: GLUCOMETER DEV NAME(LOC) 3E.C; GLUCOSE,POINT OF CARE 317 MG/DL (70-110)
[2020-09-18] MEDS: HALOPERIDOL 5 MG TABLET PO PRN (16:03)
[2020-09-18 16:46] LABS: GLUCOMETER DEV NAME(LOC) 3E.C; GLUCOSE,POINT OF CARE 195 MG/DL (70-110)
[2020-09-18 17:17] VITALS: BP 129/89
[2020-09-18 21:07] LABS: GLUCOMETER DEV NAME(LOC) 3E.C; GLUCOSE,POINT OF CARE 305 MG/DL (70-110)
[2020-09-19 06:33] LABS: GLUCOMETER DEV NAME(LOC) 3E.C; GLUCOSE,POINT OF CARE 123 MG/DL (70-110)
[2020-09-19] MEDS: INSULIN LISPRO 100 UNITS/ML SQ PRN ×4 (06:37→21:38)
[2020-09-19] MEDS: GlipiZIDE 10 MG TABLET PO SCH ×2 (06:39→17:04)
[2020-09-19] MEDS: ACETAMINOPHEN 325 MG TABLET PO PRN (06:51)
[2020-09-19] MEDS: BENZTROPINE MESYLATE 1 MG TABLET PO SCH ×2 (09:09→17:03)
[2020-09-19] MEDS: ATORVASTATIN CALCIUM 20 MG TABLET PO SCH (09:09)
[2020-09-19] MEDS: DOCUSATE SODIUM 250 MG CAPSULE PO SCH (09:09)
[2020-09-19] MEDS: MULTIVITAMINS WITH MINERALS, THERAPEUTIC TABLET PO SCH (09:09)
[2020-09-19] MEDS: ASPIRIN 81 MG CHEWABLE TABLET PO SCH (09:09)
[2020-09-19] MEDS: RisperiDONE 2 MG TABLET PO SCH ×2 (09:09→17:03)
[2020-09-19] MEDS: ATENOLOL 25 MG TABLET PO SCH (09:09)
[2020-09-19] MEDS: HALOPERIDOL 5 MG TABLET PO PRN (09:10)
[2020-09-19] MEDS: LOSARTAN POTASSIUM 25 MG TABLET PO SCH (09:10)
[2020-09-19] MEDS: INSULIN GLARGINE,HUM.REC.ANLOG 100 UNITS/ML SQ SCH ×2 (09:42→21:00)
[2020-09-19 10:23] VITALS: BP 103/78
[2020-09-19 11:58] LABS: GLUCOMETER DEV NAME(LOC) 3E.C; GLUCOSE,POINT OF CARE 215 MG/DL (70-110)
[2020-09-19 16:14] VITALS: BP 161/68
[2020-09-19] MEDS: LORazepam 2 MG TABLET PO PRN (17:04)
[2020-09-19 17:29] LABS: GLUCOMETER DEV NAME(LOC) 3E.C; GLUCOSE,POINT OF CARE 236 MG/DL (70-110)
[2020-09-19 20:58] LABS: GLUCOMETER DEV NAME(LOC) 3E.C; GLUCOSE,POINT OF CARE 126 MG/DL (70-110)
[2020-09-20] MEDS: GlipiZIDE 10 MG TABLET PO SCH ×2 (07:03→17:25)
[2020-09-20] MEDS: INSULIN LISPRO 100 UNITS/ML SQ PRN ×3 (07:12→21:34)
[2020-09-20 07:47] LABS: GLUCOMETER DEV NAME(LOC) 3E.C; GLUCOSE,POINT OF CARE 174 MG/DL (70-110)
[2020-09-20 08:03] VITALS: BP 124/69
[2020-09-20] MEDS: DOCUSATE SODIUM 250 MG CAPSULE PO SCH (08:39)
[2020-09-20] MEDS: BENZTROPINE MESYLATE 1 MG TABLET PO SCH ×2 (08:39→17:25)
[2020-09-20] MEDS: RisperiDONE 2 MG TABLET PO SCH ×2 (08:39→17:24)
[2020-09-20] MEDS: MULTIVITAMINS WITH MINERALS, THERAPEUTIC TABLET PO SCH (08:39)
[2020-09-20] MEDS: ASPIRIN 81 MG CHEWABLE TABLET PO SCH (08:39)
[2020-09-20] MEDS: LOSARTAN POTASSIUM 25 MG TABLET PO SCH (08:39)
[2020-09-20] MEDS: ATORVASTATIN CALCIUM 20 MG TABLET PO SCH (08:39)
[2020-09-20] MEDS: ATENOLOL 25 MG TABLET PO SCH (08:40)
[2020-09-20] MEDS: INSULIN GLARGINE,HUM.REC.ANLOG 100 UNITS/ML SQ SCH ×2 (09:58→21:33)
[2020-09-20 16:00] VITALS: BP 133/81
[2020-09-20 18:07] LABS: GLUCOMETER DEV NAME(LOC) 3E.C; GLUCOSE,POINT OF CARE 324 MG/DL (70-110)
[2020-09-20 20:57] LABS: GLUCOMETER DEV NAME(LOC) 3E.C; GLUCOSE,POINT OF CARE 128 MG/DL (70-110)
[2020-09-21 06:57] LABS: GLUCOMETER DEV NAME(LOC) 3E.C; GLUCOSE,POINT OF CARE 190 MG/DL (70-110)
[2020-09-21] MEDS: GlipiZIDE 10 MG TABLET PO SCH ×2 (07:04→16:20)
[2020-09-21] MEDS: INSULIN LISPRO 100 UNITS/ML SQ PRN ×4 (07:07→20:26)
[2020-09-21 08:05] VITALS: BP 127/62
[2020-09-21] MEDS: ATENOLOL 25 MG TABLET PO SCH (09:05)
[2020-09-21] MEDS: BENZTROPINE MESYLATE 1 MG TABLET PO SCH ×2 (09:05→16:20)
[2020-09-21] MEDS: ATORVASTATIN CALCIUM 20 MG TABLET PO SCH (09:05)
[2020-09-21] MEDS: LOSARTAN POTASSIUM 25 MG TABLET PO SCH (09:05)
[2020-09-21] MEDS: RisperiDONE 2 MG TABLET PO SCH ×2 (09:05→16:20)
[2020-09-21] MEDS: ASPIRIN 81 MG CHEWABLE TABLET PO SCH (09:05)
[2020-09-21] MEDS: DOCUSATE SODIUM 250 MG CAPSULE PO SCH (09:05)
[2020-09-21] MEDS: MULTIVITAMINS WITH MINERALS, THERAPEUTIC TABLET PO SCH (09:05)
[2020-09-21] MEDS: HALOPERIDOL 5 MG TABLET PO PRN (09:05)
[2020-09-21] MEDS: INSULIN GLARGINE,HUM.REC.ANLOG 100 UNITS/ML SQ SCH ×2 (09:08→20:26)
[2020-09-21 11:48] LABS: GLUCOMETER DEV NAME(LOC) 3E.C; GLUCOSE,POINT OF CARE 354 MG/DL (70-110)
[2020-09-21 14:26] LABS: COVID AG,FIA SOURCE NASOPHARYNGEAL
[2020-09-21 16:18] LABS: GLUCOMETER DEV NAME(LOC) 3E.C; GLUCOSE,POINT OF CARE 275 MG/DL (70-110)
[2020-09-21 16:26] VITALS: BP 122/81
[2020-09-21 20:34] LABS: GLUCOMETER DEV NAME(LOC) 3E.C; GLUCOSE,POINT OF CARE 301 MG/DL (70-110)
[2020-09-22 06:00] LABS: GLUCOMETER DEV NAME(LOC) 3E.C; GLUCOSE,POINT OF CARE 195 MG/DL (70-110)
[2020-09-22] MEDS: GlipiZIDE 10 MG TABLET PO SCH ×2 (06:46→16:18)
[2020-09-22] MEDS: INSULIN LISPRO 100 UNITS/ML SQ PRN ×3 (06:48→21:11)
[2020-09-22] MEDS: RisperiDONE 2 MG TABLET PO SCH ×2 (07:40→16:18)
[2020-09-22] MEDS: ASPIRIN 81 MG CHEWABLE TABLET PO SCH (07:40)
[2020-09-22] MEDS: BENZTROPINE MESYLATE 1 MG TABLET PO SCH ×2 (07:40→16:18)
[2020-09-22] MEDS: ATORVASTATIN CALCIUM 20 MG TABLET PO SCH (07:40)
[2020-09-22] MEDS: DOCUSATE SODIUM 250 MG CAPSULE PO SCH ×2 (07:40→09:00)
[2020-09-22] MEDS: LOSARTAN POTASSIUM 25 MG TABLET PO SCH (07:40)
[2020-09-22] MEDS: MULTIVITAMINS WITH MINERALS, THERAPEUTIC TABLET PO SCH ×2 (07:40→09:00)
[2020-09-22] MEDS: ATENOLOL 25 MG TABLET PO SCH (07:40)
[2020-09-22] MEDS: HALOPERIDOL 5 MG TABLET PO PRN (07:41)
[2020-09-22 08:30] VITALS: BP 145/60
[2020-09-22] MEDS: INSULIN GLARGINE,HUM.REC.ANLOG 100 UNITS/ML SQ SCH ×2 (09:22→21:10)
[2020-09-22 11:30] LABS: GLUCOMETER DEV NAME(LOC) 3E.C; GLUCOSE,POINT OF CARE 154 MG/DL (70-110)
[2020-09-22 17:49] LABS: GLUCOMETER DEV NAME(LOC) 3E.C; GLUCOSE,POINT OF CARE 117 MG/DL (70-110)
[2020-09-22 17:49] LABS: GLUCOMETER DEV NAME(LOC) 3E.C; GLUCOSE,POINT OF CARE 64 MG/DL (70-110)
[2020-09-22 21:05] LABS: GLUCOMETER DEV NAME(LOC) 3E.C; GLUCOSE,POINT OF CARE 155 MG/DL (70-110)
[2020-09-23] MEDS: GlipiZIDE 10 MG TABLET PO SCH ×2 (06:33→06:46)
[2020-09-23 07:50] LABS: GLUCOMETER DEV NAME(LOC) 3E.C; GLUCOSE,POINT OF CARE 114 MG/DL (70-110)
[2020-09-23] MEDS: MULTIVITAMINS WITH MINERALS, THERAPEUTIC TABLET PO SCH (08:26)
[2020-09-23] MEDS: HALOPERIDOL 5 MG TABLET PO PRN (08:27)
[2020-09-23] MEDS: RisperiDONE 2 MG TABLET PO SCH ×2 (08:27→16:51)
[2020-09-23] MEDS: ATENOLOL 25 MG TABLET PO SCH (08:27)
[2020-09-23] MEDS: ASPIRIN 81 MG CHEWABLE TABLET PO SCH (08:27)
[2020-09-23] MEDS: DOCUSATE SODIUM 250 MG CAPSULE PO SCH (08:27)
[2020-09-23] MEDS: LOSARTAN POTASSIUM 25 MG TABLET PO SCH (08:27)
[2020-09-23] MEDS: ATORVASTATIN CALCIUM 20 MG TABLET PO SCH (08:27)
[2020-09-23] MEDS: BENZTROPINE MESYLATE 1 MG TABLET PO SCH ×2 (08:27→16:51)
[2020-09-23] MEDS: INSULIN GLARGINE,HUM.REC.ANLOG 100 UNITS/ML SQ SCH ×2 (09:32→20:34)
[2020-09-23 11:39] LABS: GLUCOMETER DEV NAME(LOC) 3E.C; GLUCOSE,POINT OF CARE 344 MG/DL (70-110)
[2020-09-23] MEDS: INSULIN LISPRO 100 UNITS/ML SQ PRN ×3 (12:05→20:35)
[2020-09-23 16:16] LABS: GLUCOMETER DEV NAME(LOC) 3E.C; GLUCOSE,POINT OF CARE 296 MG/DL (70-110)
[2020-09-23 16:30] VITALS: BP 133/84
[2020-09-23 20:12] LABS: GLUCOMETER DEV NAME(LOC) 3E.C; GLUCOSE,POINT OF CARE 178 MG/DL (70-110)
[2020-09-24 06:26] LABS: GLUCOMETER DEV NAME(LOC) 3E.C; GLUCOSE,POINT OF CARE 205 MG/DL (70-110)
[2020-09-24] MEDS: GlipiZIDE 10 MG TABLET PO SCH (06:57)
[2020-09-24] MEDS: INSULIN LISPRO 100 UNITS/ML SQ PRN ×2 (06:58→10:59)
[2020-09-24 08:00] VITALS: BP 149/66
[2020-09-24] MEDS: LOSARTAN POTASSIUM 25 MG TABLET PO SCH (08:39)
[2020-09-24] MEDS: DOCUSATE SODIUM 250 MG CAPSULE PO SCH (08:39)
[2020-09-24] MEDS: MULTIVITAMINS WITH MINERALS, THERAPEUTIC TABLET PO SCH (08:39)
[2020-09-24] MEDS: RisperiDONE 2 MG TABLET PO SCH (08:40)
[2020-09-24] MEDS: BENZTROPINE MESYLATE 1 MG TABLET PO SCH (08:40)
[2020-09-24] MEDS: ASPIRIN 81 MG CHEWABLE TABLET PO SCH (08:40)
[2020-09-24] MEDS: ATENOLOL 25 MG TABLET PO SCH (08:40)
[2020-09-24] MEDS: ATORVASTATIN CALCIUM 20 MG TABLET PO SCH (08:40)
[2020-09-24] MEDS: INSULIN GLARGINE,HUM.REC.ANLOG 100 UNITS/ML SQ SCH (09:24)
[2020-09-24] MEDS ORDERED: ASPI-1450 PO (10:13)
[2020-09-24] MEDS ORDERED: ASPI-1227 PO (10:14)
[2020-09-24] MEDS ORDERED: GLIP10 PO (10:17)
[2020-09-24] MEDS ORDERED: INSLAN SQ ×2 (10:17)
[2020-09-24] MEDS ORDERED: MULT-1239 PO (10:18)
[2020-09-24] MEDS ORDERED: AMPICILLIN TRIHYDRATE 500 MG CAPSULE PO SCH (10:30)
[2020-09-24 10:46] LABS: GLUCOMETER DEV NAME(LOC) 3E.C; GLUCOSE,POINT OF CARE 125 MG/DL (70-110)
== END 2020-09-24 12:15 | DRG 750 ==
LOC: 3EX 17:00 → 3EI 08-30 22:03 → 3EC 09-12 18:00
PROVIDERS: ADMIT Psychiatry & Neurology Psychiatry; ATTEND Psychiatry & Neurology Psychiatry
DX: F20.0 Paranoid schizophrenia (principal); E78.5 Hyperlipidemia, unspecified; I10 Essential (primary) hypertension; N39.0 Urinary tract infection, site not specified; Z20.822 Contact with and (suspected) exposure to COVID-19; F32.9 Major depressive disorder, single episode, unspecified; K59.00 Constipation, unspecified; E11.9 Type 2 diabetes mellitus without complications; F41.9 Anxiety disorder, unspecified; G47.00 Insomnia, unspecified
CPT/HCPCS: 87081; 87086; 87426; 97162; 97166; G0378; J1815